=== PATIENT | male | born 1940 | race Asian ===

== ENCOUNTER → 2016-05-09 | Outpatient (CLI) | payer MEDICARE, OTHER ==
[2014-09-14 07:47] VITALS: BP 99/53
[~2016-05-09] MED LIST: ATOR10TA PO; CALC1TAB PO; CHOL10003 PO; CYAN10005 PO; FERR325T58 PO; IRON50VI2 IV; LEVO50TA5 PO; ONDA8TAB9 PO; OXYC-323 PO
--- NOTE | 2016-05-09 12:54 | RAD ---
Indication restage lung malignancy. PET/CT was performed from the skull through the proximal thigh. CT was performed primarily for localization and attenuation purposes as opposed to primary diagnostic purposes. The blood sugar during the examination was entered and 13. 11.8 mCi of FDG was administered. Note is made of a previous PET/CT examination 02/29/2016. On CT the visualized brain appears normal. No abnormality is seen in the neck. Known urinary nodule, medially, in the right upper lobe immediately adjacent to the mediastinum persists but appears slightly larger. No new pulmonary nodules are seen. Scattered calcified lymph nodes in the retroperitoneum are noted. Known cholelithiasis is reproduced. The spleen is slightly enlarged. Moderately extensive diverticulosis is noted associated with the sigmoid colon. On PET the FDG is physiologically distributed in the visualized brain. No abnormal FDG activity is seen in the neck. The referenced pulmonary nodule in the right upper lobe, close to the mediastinum, is moderately FDG avid. Maximum SUV is now 2.4 where as previously it was 1.9. This, in conjunction with the slight increase in size is most compatible with ongoing neoplastic disease. No additional finding is seen in the chest. In the abdomen FDG avid node, in the area of the dung hepatis, persists. It is more FDG avid than previously. Maximum SUV previously was approximately 5.4 and now the corresponding value is 6.2. Several additional retroperitoneal lymph nodes are noted which too are slightly more avid than on the previous exam. . These findings too are most compatible with ongoing metastatic disease. Multiple areas of increased activity are seen throughout the visualized bony structures which is probably secondary to bone marrow stimulation. In this regard the findings are similar to the previous study. Slightly increased FDG activity in the stomach seen previously is not seen on today's study IMPRESSION: Findings most suggestive of ongoing neoplastic disease. Known right upper lobe pulmonary nodule is slightly larger and more FDG avid than on the previous exam. Dung hepatis and retroperitoneal lymph nodes are also somewhat more FDG avid. Increased activity in multiple visualized bony structures is probably secondary to bone marrow stimulation. The appearance is similar to the previous exam
== END | disposition home or self-care (01) ==
LOC: PETSC 10:15
PROVIDERS: ATTEND Internal Medicine Hematology & Oncology
DX: C16.0 Malignant neoplasm of cardia (principal); R91.1 Solitary pulmonary nodule
CPT/HCPCS: 78815; A9552

== ENCOUNTER → 2016-07-18 | Outpatient (CLI) | payer MEDICARE, OTHER ==
[2014-09-14 07:47] VITALS: BP 99/53
--- NOTE | 2016-07-18 12:03 | RAD ---
PET/CT imaging from the skull through the midthigh History: Gastroesophageal cancer restaging. Comparison: PET/CT 05/09/2016. Technique: PET examination was performed from the skull base to the proximal thighs after intravenous administration of 12.2 mCi Fluorine [address] scan was performed for the purposes of localization and attenuation, not for primary diagnosis. Blood glucose level at time of injection was 112 mg/dl. Findings: No metabolically active lymphadenopathy is seen in the neck, chest or pelvis. There is a right upper lobe pulmonary nodule measuring 5 mm (series 3 image 120). There is in this region maximum SUV of 1.7, although this may be from adjacent rib; this size is generally considered below the level of detection by PET; on previous study, this nodule measured 2 mm, consequently there has been interval growth. The right upper lobe nodule adjacent to the minor fissure and the mediastinum does not appear appreciably changed in size measuring about 1.1 cm in maximum dimension and demonstrates maximum SUV of 2.0 (previously 1.1 cm and maximum SUV of 2.4). Some of the abdominal lymphadenopathy appears to have worsened in the interval. Most evident, left para-aortic infrarenal lymphadenopathy now demonstrates maximum SUV of 7.5 (previously maximum SUV of 2.9). Aortocaval lymph node demonstrates maximum SUV of 6.8 (previously maximum SUV of 7.5). There is also lymphadenopathy more anteriorly in the upper abdomen adjacent to the liver which demonstrate maximum SUV of 6.0 (previously maximum SUV of 6.2). There is interval development of small right pleural effusion and interval enlargement of left pleural effusion, still small. There is evidence of body wall edema and ascites. Cholelithiasis is seen. Diffuse FDG activity involving a majority of the osseous structures is again seen, may relate to bone marrow stimulation. Impression: 1. There is evidence of worsening of metastatic disease as component of abdominal lymphadenopathy demonstrates increased activity since previous study. 2. Interval enlargement of a right upper lobe pulmonary nodule which now measures 5 mm. This may be metastatic. 3. No significant interval change in appearance or metabolic activity of the larger right upper lobe pulmonary nodule adjacent to the minor fissure and the mediastinum. 4. Persistent diffuse FDG activity involving skeletal structures, may relate to bone marrow stimulation.
== END | disposition home or self-care (01) ==
LOC: PETSC 09:02
PROVIDERS: ATTEND Internal Medicine Hematology & Oncology
DX: C16.0 Malignant neoplasm of cardia (principal)
CPT/HCPCS: 78815; A9552

== ENCOUNTER 2016-08-19 10:31 | Inpatient (IN) | payer MEDICARE, OTHER ==
[~2016-08-19] VITALS: Ht 160 cm; Wt 54.5 kg
[2016-08-19 11:12] LABS: POTASSIUM ISTAT 3.9 mmol/L (3.5-5.0)
[2016-08-19 11:19] LABS: BASO # 0.1 x10^3/uL (0.0-0.2); BASO % 0 % (0-3); EOS % 0 % (0-3); HEMATOCRIT 39.7 % (39.0-53.0); HEMOGLOBIN 13.8 g/dL (13.0-17.5); LYMPH # 0.3 x10^3/uL (1.0-4.8); LYMPH % 1 % (24-48); MEAN CORPUSCULAR HEMOGLOBIN 32 pg (25-35); MEAN CORPUSCULAR HGB CONC 35 g/dL (31-37); MEAN CORPUSCULAR VOLUME 92 fL (79-100); MONO % 7 % (0-9); NEUT % 92 % (31-73); PLATELET COUNT 133 x10^3/uL (140-400); RED BLOOD COUNT 4.34 x10^6/uL (4.30-5.70); RED CELL DISTRIBUTION WIDTH 20.6 % (11.5-14.5); WHITE BLOOD COUNT 24.5 x10^3/uL (4.0-11.0)
[2016-08-19 11:25] LABS: BILIRUBIN,URINE LARGE (NEG); GLUCOSE,URINE NEGATIVE (NEG); NITRITE,URINE NEGATIVE (NEG); PH,URINE 5.5; PROTEIN,URINE NEGATIVE (NEG-TRACE); UROBILINOGEN,URINE 0.2 mg/dL (0.2 mg/dL)
[2016-08-19 11:29] LABS: CALCIUM 8.7 mg/dL (8.5-10.1); CREATININE 0.8 mg/dL (0.7-1.3); GFR 94.5; POTASSIUM 4.2 mmol/L (3.5-5.1)
[2016-08-19 11:32] LABS: INR 2.1 (0.8-1.1); PROTHROMBIN TIME PATIENT 22.6 SEC (11.7-14.0)
--- NOTE | 2016-08-19 11:37 | PHYS DOC ---
Past Medical History Past Medical History: Cancer, GERD Additional Past Surgical Histo: "stomach" for cancer Alcohol Use: None Drug Use: None Adult General Chief Complaint Chief Complaint: weakness/edema HPI HPI Patient is a 76 year old male who presents with weakness and ongoing edema in lower extremities and abdomen. pt has metastatic gastric cancer and is receiving chemotherapy. Pt presents hypoxic and does not wear O2 at home. Family reports the patient has had cough but not productive. Pt chronically sleeps up on pillows. Pt reportedly more jaundiced from baseline. pt had mets to liver in past but family reports it had "gone away". Pt denies chest pain, sob, or abdominal pain. No reports of problems with urination or bowel movement change. No headache and pt's mentation has been normal. Review of Systems Review of Systems Constitutional: Denies fever or chills, reports generalized weakness Eyes: Denies change in visual acuity, redness, or eye pain [] HENT: Denies nasal congestion or sore throat [] Respiratory: Denies shortness of breath [] Cardiovascular: denies chest pain GI: Denies abdominal pain, nausea, vomiting, bloody stools or diarrhea [] : Denies dysuria or hematuria [] Musculoskeletal: Denies back pain Integument: Denies rash or skin lesions [] Neurologic: Denies headache, focal weakness or sensory changes [] Current Medications Current Medications Current Medications Medications (Trade) Dose Ordered Sig/Robel Start Time Stop Time Status Last Admin Dose Admin Iohexol (Omnipaque 300 Mg/ml) 75 ml 1X ONCE 08/19/16 12:00 08/19/16 12:01 DC 08/19/16 12:03 75 ML Piperacillin Sod/ Tazobactam Sod (Zosyn Per Pharmacy) 1 each PRN DAILY PRN 08/19/16 11:45 Piperacillin Sod/ Tazobactam Sod 3.375 gm/Sodium Chloride 50 ml @ 100 mls/hr ONCE ONCE 08/19/16 11:45 08/19/16 12:14 DC 08/19/16 11:58 100 MLS/HR Sodium Chloride 500 ml @ 500 mls/hr 1X ONCE 08/19/16 11:45 08/19/16 12:44 DC 08/19/16 11:59 500 MLS/HR Vancomycin HCl (Vanco Per Pharmacy) 1 each PRN DAILY PRN 08/19/16 11:45 08/19/16 14:44 DC Vancomycin HCl 1.25 gm/Sodium Chloride 250 ml @ 166.667 mls/hr 1X ONCE 08/19/16 12:00 08/19/16 13:29 DC Allergies Allergies Allergies Coded Allergies Type Severity Reaction Last Updated Verified No Known Drug Allergies 11/09/13 No Physical Exam Physical Exam Constitutional: Well developed, frail, jaundiced HENT: Normocephalic, atraumatic Eyes: PERRLA, EOMI, scleral icteric Neck: Normal range of motion, no tenderness, supple, no stridor. [] Cardiovascular:Heart rate regular with rhythm, no murmur [] Lungs & Thorax: Bilateral breath sounds clear to auscultation , no wheeze or crackles, Abdomen: soft, mildly distended, no significant ttp, no guarding or peritoneal signs Skin: Warm, dry, jaundiced throughout Back: No tenderness, no CVA tenderness. [] Extremities: No tenderness, no cyanosis, no clubbing, ROM intact, 2+ bilateral lower extremity edema Neurologic: Alert and oriented, normal motor function, normal sensory function, no focal deficits noted. [] Current Patient Data Vital Signs Vital Signs Date Time Temp Pulse Resp B/P (MAP) Pulse Ox O2 Delivery O2 Flow Rate FiO2 08/19/16 11:41 68 20 127/64 (85) 93 08/19/16 10:55 97.6 Nasal Cannula 4.0 97.6 Lab Values Laboratory Tests Test 08/19/16 11:00 08/19/16 11:07 08/19/16 11:15 White Blood Count 24.5 x10^3/uL (4.0-11.0) H Red Blood Count 4.34 x10^6/uL (4.30-5.70) Hemoglobin 13.8 g/dL (13.0-17.5) Hematocrit 39.7 % (39.0-53.0) Mean Corpuscular Volume 92 fL (79-100) Mean Corpuscular Hemoglobin 32 pg (25-35) Mean Corpuscular Hemoglobin Concent 35 g/dL (31-37) Red Cell Distribution Width 20.6 % (11.5-14.5) H Platelet Count 133 x10^3/uL (140-400) L Neutrophils (%) (Auto) 92 % (31-73) H Lymphocytes (%) (Auto) 1 % (24-48) L Monocytes (%) (Auto) 7 % (0-9) Eosinophils (%) (Auto) 0 % (0-3) Basophils (%) (Auto) 0 % (0-3) Neutrophils # (Auto) 22.5 x10^3uL (1.8-7.7) H Lymphocytes # (Auto) 0.3 x10^3/uL (1.0-4.8) L Monocytes # (Auto) 1.6 x10^3/uL (0.0-1.1) H Eosinophils # (Auto) 0.0 x10^3/uL (0.0-0.7) Basophils # (Auto) 0.1 x10^3/uL (0.0-0.2) Segmented Neutrophils % 86 % (35-66) H Band Neutrophils % 9 % (0-9) Monocytes % 4 % (0-10) Eosinophils % 1 % (0-5) Platelet Estimate Adequate (ADEQUATE) Polychromasia Slight Anisocytosis Mod Target Cells Present Prothrombin Time 22.6 SEC (11.7-14.0) H Prothrombin Time INR 2.1 (0.8-1.1) H Sodium Level 124 mmol/L (136-145) L Potassium Level 4.2 mmol/L (3.5-5.1) Chloride Level 86 mmol/L (98-107) L Carbon Dioxide Level 30 mmol/L (21-32) Anion Gap 8 (6-14) 14 mmol/L (6-14) Blood Urea Nitrogen 24 mg/dL (8-26) Creatinine 0.8 mg/dL (0.7-1.3) Estimated GFR (Cockcroft-Gault) 94.5 Glucose Level 89 mg/dL (70-99) 94 mg/dL (70-99) Lactic Acid Level 2.0 mmol/L (0.4-2.0) Calcium Level 8.7 mg/dL (8.5-10.1) Magnesium Level 2.3 mg/dL (1.8-2.4) Total Bilirubin 23.0 mg/dL (0.2-1.0) H Direct Bilirubin 17.7 mg/dL (0.0-0.2) H Aspartate Amino Transferase (AST) 141 U/L (15-37) H Alanine Aminotransferase (ALT) 73 U/L (16-63) H Alkaline Phosphatase 932 U/L (46-116) H Troponin I Quantitative < 0.017 ng/mL (0.000-0.055) QB-Mhp-K-Type Natriuretic Peptide 695 pg/mL (0-124) H Total Protein 5.7 g/dL (6.4-8.2) L Albumin 1.9 g/dL (3.4-5.0) L Lipase 213 U/L (73-393) POC Hemoglobin 16.3 g/dL (14-18) POC Hematocrit 48 % (37-52) POC Sodium 124 mmol/L (135-145) L POC Potassium 3.9 mmol/L (3.5-5.0) POC Chloride 84 mmol/L (98-110) L POC Total CO2 30 mmol/L (23-32) POC Blood Urea Nitrogen 26 mg/dL (8-26) POC Creatinine 0.9 mg/dL (0.5-1.4) POC Ionized Calcium (Deuce) 1.06 mmol/L (1.13-1.32) L Urine Collection Type Unknown Urine Color [place] Urine Clarity Clear Urine pH 5.5 Urine Specific [place] 1.025 Urine Protein Negative mg/dL (NEG-TRACE) Urine Glucose (UA) Negative mg/dL (NEG) Urine Ketones (Stick) Trace mg/dL (NEG) Urine Blood Negative (NEG) Urine Nitrite Negative (NEG) Urine Bilirubin Large (NEG) Urine Urobilinogen Dipstick 0.2 mg/dL (0.2 mg/dL) Urine Leukocyte Esterase Small (NEG) Urine RBC 0 /HPF (0-2) Urine WBC Occ /HPF (0-4) Urine Squamous Epithelial Cells Occ /LPF Urine Bacteria Few /HPF (0-FEW) Urine Hyaline Casts Occasional /HPF Urine Granular Casts Occasional /HPF Urine Mucus Mod /LPF Laboratory Tests 08/19/16 11:00 Laboratory Tests 08/19/16 11:00 08/19/16 11:07 EKG EKG 76 bpm, sinus, normal axis, QTC 459, no ST elevation or depression, T waves upright, interpreted by me[] Radiology/Procedures Radiology/Procedures [] Course & Med Decision Making Course & Med Decision Making Pertinent Labs and Imaging studies reviewed. (See chart for details) Pt given IV fluids, labs/cxr obtained. Concern for PE with hypoxia and cancer. Pt given small fluid bolus as could be fluid overload. Lactate WNL. Pt given zosyn and vanc for appearance of pna on CXr. CTA chest and CT abd/pelvis ordered, pt accepted to Dr. Guzman, consults for ID and Dr. Danielle christiansen. Pt maintained. Total critical care time: 30 min Dragon Disclaimer Dragon Disclaimer This electronic medical record was generated, in whole or in part, using a voice recognition dictation system. Departure Departure Impression: Primary Impression: Sepsis Disposition: 01 HOME, SELF-CARE Condition: GUARDED Referrals: LIT GEE APRN (PCP) ABDIAZIZ PASTOR MD Aug 19, 2016 11:37
--- NOTE | 2016-08-19 11:43 | RAD ---
Indication difficulty breathing. A single view of the chest was obtained. No prior plain film imaging of the chest is available Heart size is normal. There are bilateral pleural effusions. Volume loss at the lung bases may reflect atelectasis or pneumonia. There are probable background changes of congestive heart failure. A left Port-A-Cath is noted. IMPRESSION: Moderate bilateral pleural effusions. Volume loss at the lung bases may reflect atelectasis or pneumonia. Probable moderate congestive heart failure
[2016-08-19] MEDS ORDERED: IV NORMAL SALINE 500ML BAG 500 ML IV ONE (11:45)
[2016-08-19] MEDS ORDERED: PIP/TAZO PER PHARMACY MC PRN (11:45)
[2016-08-19] MEDS ORDERED: VANCOMYCIN PER PHARMACY MC PRN (11:45)
[2016-08-19] MEDS ORDERED: PIPERACILLIN/TAZOBACTAM 3.375 GM in IV NORMAL SALINE 50ML 50 ML IV ONE (11:45)
[2016-08-19 11:49] LABS: ALBUMIN 1.9 g/dL (3.4-5.0); DIRECT BILIRUBIN 17.7 mg/dL (0.0-0.2); MAGNESIUM 2.3 mg/dL (1.8-2.4); TOTAL PROTEIN 5.7 g/dL (6.4-8.2)
[2016-08-19 11:54] LABS: SQUAMOUS EPITHELIAL CELL,UR OCC /LPF
[2016-08-19 11:55] LABS: BACTERIA,URINE FEW /HPF (0-FEW); RBC,URINE 0 /HPF (0-2); WBC,URINE OCC /HPF (0-4)
[2016-08-19] MEDS ORDERED: VANCOMYCIN 1.25 GM in IV NORMAL SALINE 250ML 250 ML IV ONE (12:00)
[2016-08-19] MEDS ORDERED: IOHEXOL 300 MG/ML 75 ML VIAL IV ONE (12:00)
[2016-08-19 12:02] LABS: % EOS 1 % (0-5); ANISOCYTOSIS MOD; PLT ESTIMATE ADEQUATE (ADEQUATE); POLYCHROMASIA SLIGHT; TARGET CELLS PRESENT
[2016-08-19] MEDS ORDERED: fentaNYL PF VIAL 100 MCG/2 ML VIAL IV PRN ×2 (12:15→13:30)
[2016-08-19] MEDS ORDERED: ONDANSETRON PF 4 MG/2 ML VIAL. IV PRN ×2 (12:15→13:23)
[2016-08-19] MEDS ORDERED: CONTRAST GIVEN MC PRN (12:15)
[2016-08-19] MEDS ORDERED: IV NORMAL SALINE 1000ML BAG 1,000 ML IV ONE (12:45)
--- NOTE | 2016-08-19 12:51 | RAD ---
Indication difficulty breathing. Gastrointestinal malignancy. Axial images through the abdomen and pelvis were obtained. The imaging of the chest was tailored for the detection of pulmonary embolus. MIP images were generated and reviewed. Note is made of a previous examination of the chest 06/19/2015. Note is made of a prior study of the abdomen and pelvis 09/14/2014. Approximately 75 cc of Omnipaque 300 was administered intravenously for this exam. No oral contrast was administered. CT chest: Findings There is is generalized soft tissue swelling suggesting a systemic process such as anasarca. There are large bilateral pleural effusions. The esophagus is significantly dilated and fluid-filled throughout its course. (Suspect gastric pull-up. Clinical correlation advised). The study is negative for pulmonary embolus. There is volume loss at the lung bases compatible with atelectasis associated with the pleural fluid. Additional volume loss is seen in the left upper lobe. This may reflect atelectasis or pneumonia a dominant soft tissue mass in aerated lung is not seen. CT abdomen and pelvis: Findings Similar to the chest there is generalized soft tissue swelling again suggesting a systemic process such as anasarca. There is moderately extensive abdominal ascites. There is cholelithiasis. The gallbladder is moderately distended. There is significant biliary ductal dilatation. Intra and extrahepatic radicles are dilated. The etiology is not clear on this exam there is significant abdominal ascites representing a new finding compared to the previous exam. There is periaortic adenopathy. Evaluation of same is somewhat limited secondary to the ascites and lack of GI contrast however this adenopathy appears to have progressed somewhat relative to the previous exam diverticular disease is seen associated with the large bowel. IMPRESSION: Negative study for large central pulmonary emboli. Large bilateral pleural effusions. Volume loss at the lung bases and in the left upper lobe may reflect atelectasis or pneumonia. Dilated fluid-filled esophagus versus gastric pull-up. Clinical correlation advised. Extensive abdominal ascites. Generalized anasarca. Intra and extra hepatic biliary ductal dilatation the etiology of which is not clear on this exam. Periaortic and abdominal adenopathy. The appearance is somewhat worse relative to the previous exam PQRS Compliance Statement: One or more of the following individualized dose reduction techniques were utilized for this examination: 1. Automated exposure control 2. Adjustment of the mA and/or kV according to patient size 3. Use of iterative reconstruction technique
[2016-08-19 13:00] VITALS: BP 135/67
--- NOTE | 2016-08-19 13:15 | ACF ---
Admit Criteria Forms Admit Criteria Forms Admit Criteria Forms PNEUMONIA, COMMUNITY ACQUIRED Clinical Indications for Admission to Inpatient Care (Place 'X' for any and all applicable criteria): Admission to inpatient status for two midnights or more is indicated for ANY ONE of the following (1)(2)(3): [X]I. Hypoxia [ ]II. Hemodynamic instability [ ]III. Altered mental status that is severe or persistent [ ]IV. Dehydration that is severe or persistent. [ ]V. Bacteremia [ ]. Moderate-risk or high-risk category patients (Pneumonia Severity Index ( PSI) class IV or V, or CURB-65 score of 3 or greater). [ ]VII. Intermediate-risk category patients (e.g., PSI class III or CURB-65 score 2) who do not improve with outpatient and observation care treatment [ ]VIII. Outpatient treatment failure as indicated by 1 or more of the following(9): [ ]a) Failure to respond to antibiotic (eg, resistant organism) [ ]b) Clinically significant adverse effects from medication (eg, vomiting) [ ]c) Complications of pneumonia (eg, empyema, bacteremia) [ ]d) Significant worsening of comorbid cond necessitating inpatient care (eg, chronic heart failure) [ ]IX. Appropriate diagnostic testing and treatment unavailable in outpatient or recovery facility (eg, testing or infection control measures unavailable) [ ]X. Respiratory finding (eg. tachypnea) that do not respond to outpatient observation care treatment [ ]XI. Complicated pleural effusions (eg, emphysema, exudative, loculated) [ ]XII. Immunocompromised patients (e.g., AIDS, chronic steroid use) at moderate or high risk based on clinical evaluation. Extended stay beyond goal length of stay may be needed for (20) [ ]a) Unclear diagnosis [ ]b) Pleural disease [ ]c) Severe pneumonia or treatment failure [ ]d) Respiratory failure [ ]e) New onset hyponatremia (serum Na concentration less than 135 mEq/L(mmol/ L) [ ]f) Clinically significant comorbid illness (eg, heart failure, atrial fibrillation with rapid heart rate, alcohol withdrawal, renal insufficiency)(34)(35) [ ]g) Comorbid acute exacerbation of COPD(36) [ ]h) Concomitant diagnosis of malignancy [ ]i) Concomitant altered mental status [ ]j) Culture-identified Gram-negative or antibiotic-resistant organism (eg, Pseudomonas, methicillin-resistant Staphylococcus aureus MRSA)(30) [ ]k) Healthcare-associated pneumonia (36) The original [facility] [employer] content created by [facility] has been revised. The portions of the content which have been revised are identified through the use of italic text, and [facility] has neither reviewed nor approved the modified material. All other unmodified content is copyright [facility]. Please see references footnoted in the original [facility] [employer] edition 2014 SERVANDO JESUS Aug 19, 2016 13:15
--- NOTE | 2016-08-19 13:36 | EKG ---
[facility] [address] [place] [address] Test Date: 2016-08-19 Test Time: 10:58:28 Pat Name: BERNABE JAIME Department: Room: Gender: M Automatic Hemmer: : 1940 Requested By: ABDIAZIZ PASTOR Order Number: [id number] Reading MD: Measurements Intervals [place] Rate: 76 P: 39 VA: 158 QRS: -34 QRSD: 78 T: -15 QT: 404 QTc: 459 Interpretive Statements SINUS RHYTHM ABNORMAL LEFT AXIS DEVIATION LOW LIMB LEAD VOLTAGE QRS(T) CONTOUR ABNORMALITY CONSISTENT WITH ANTEROSEPTAL INFARCT AGE UNDETERMINED CONSISTENT WITH INFERIOR INFARCT AGE UNDETERMINED ABNORMAL ECG RI6.01 No previous ECG available for comparison
--- NOTE | 2016-08-19 14:26 | PDOC1 ---
History and Physical Date of Admission Date of Admission DATE: 08/19/16 TIME: 14:10 Identification/Chief Complaint Chief Complaint weakness, generalized Problems: Source Source: Caregiver, Chart review, Patient History of Present Illness History of Present Illness 76 y.o Malaysian male who doesnt speak Welsh but dtr at bedside to help out, hx GE Jcn CA with mets dx yrs ago follows with [facility] for palliative chemo and a few sessions with [facility] (Dr. Gomez) in the past. Gets chemo q 2weeks, last chemo was last week but dtr noticed swelling, essentially anasarca - LE edema, ascites, arm swelling, jaundice which has happened before, in september and resolved after discontinuation of some chemo agent. Eating ok, no fevers, gets boost supplement at home, NO pain. Weight gain bec of water weight. Images reviewed: TB high, Direct bili high, pt though thin has ascites appreciable on exam, Bialteral LE edema and arm edema , icteric sclerae: CT abd/pelvis I have personally reviewed: IMPRESSION: Negative study for large central pulmonary emboli. Large bilateral pleural effusions. Volume loss at the lung bases and in the left upper lobe may reflect atelectasis or pneumonia. Dilated fluid-filled esophagus versus gastric pull-up. Clinical correlation advised. Extensive abdominal ascites. Generalized anasarca. Intra and extra hepatic biliary ductal dilatation the etiology of which is not clear on this exam. Periaortic and abdominal adenopathy. The appearance is somewhat worse relative to the previous exam Past Medical History Heme/Onc: Anemia NOS, Cancer Past Surgical History Past Surgical History: Other (Gastric vs esophageal =tumor resection - done at ) Family History Family History: Hypertension Social History Smoke: No ALCOHOL: none Drugs: None Current Problem List Problem List Problems Medical Problems: (1) Sepsis Status: Acute Problems: Current Medications Current Medications Current Medications Sodium Chloride 500 ml @ 500 mls/hr 1X ONCE IV Last administered on 08/19/16t 11:59; Start 08/19/16 at 11:45; Stop 08/19/16 at 12:44; Status DC Piperacillin Sod/ Tazobactam Sod (Zosyn Per Pharmacy) 1 each PRN DAILY PRN MC SEE COMMENTS; Start 08/19/16 at 11:45 Vancomycin HCl (Vanco Per Pharmacy) 1 each PRN DAILY PRN MC SEE COMMENTS; Start 08/19/16 at 11:45 Vancomycin HCl 1.25 gm/Sodium Chloride 250 ml @ 166.667 mls/hr 1X ONCE IV ; Start 08/19/16 at 12:00; Stop 08/19/16 at 13:29; Status DC Piperacillin Sod/ Tazobactam Sod 3.375 gm/Sodium Chloride 50 ml @ 100 mls/hr ONCE ONCE IV Last administered on 08/19/16t 11:58; Start 08/19/16 at 11:45; Stop 08/19/16 at 12:14; Status DC Iohexol (Omnipaque 300 Mg/ml) 75 ml 1X ONCE IV Last administered on 08/19/16t 12:03; Start 08/19/16 at 12:00; Stop 08/19/16 at 12:01; Status DC Info (Do NOT chart on this entry -- for MONITORING) 1 each PRN DAILY PRN MC SEE COMMENTS; Start 08/19/16 at 12:15; Stop 08/21/16 at 12:14 Ondansetron HCl (Zofran) 4 mg PRN Q8HRS PRN IV NAUSEA/VOMITING; Start 08/19/16 at 12:15; Stop 08/19/16 at 13:26; Status DC Fentanyl Citrate (Fentanyl 2ml Vial) 50 mcg PRN Q1HR PRN IV PAIN; Start at 12:15; Stop 08/20/16 at 12:14 Sodium Chloride 1,000 ml @ 1,000 mls/hr 1X ONCE IV ; Start 08/19/16 at 12:45; Stop 08/19/16 at 13:44; Status DC Ondansetron HCl (Zofran) 4 mg PRN Q6HRS PRN IV NAUSEA/VOMITING 1ST CHOICE; Start 08/19/16 at 13:23; Stop 08/20/16 at 13:22 Fentanyl Citrate (Fentanyl 2ml Vial) 50 mcg PRN Q2HR PRN IV PAIN SEVERE; Start 08/19/16 at 13:30 Atorvastatin Calcium (Lipitor) 10 mg DAILY PO ; Start 08/20/16 at 09:00; Status UNV Vitamin D (Vitamin D3) 1,000 unit DAILY PO ; Start 08/19/16 at 14:00 Levothyroxine Sodium (Synthroid) 50 mcg DAILY07 PO ; Start 7/3/17 at 14:00 Active Scripts Active Reported Vitamin D3 (Cholecalciferol (Vitamin D3)) 1,000 Unit Tablet 1,000 Unit PO DAILY Levothyroxine Sodium 50 Mcg Tablet 50 Mcg PO DAILY Lipitor (Atorvastatin Calcium) 10 Mg Tablet 10 Mg PO DAILY Allergies Allergies: Coded Allergies: No Known Drug Allergies (Unverified , 11/09/13) ROS Review of System limited - non cymraes speaking, but as per dtr, denies - only concern is weakness and swelling Physical Exam General: Alert, Oriented X3, Cooperative, No acute distress HEENT: Atraumatic, EOMI, Other (icteric sclerae) Lungs: Normal air movement, Other (dec BS) Heart: S1S2 Cardiovascular: S1, S2 Abdomen: Soft, Other (ascites, jaundiced abdomen/yellowish hue) Extremities: Other (plus 2 -3 pitting edema) Skin: Other (jaundice) Neuro: Normal gait, Normal speech, Strength at 5/5 X4 ext, Normal tone, Sensation intact, Cranial nerves 3-12 NL, Reflexes 2+ Psych/Mental Status: Mental status NL Vitals Vitals Vital Signs Date Time Temp Pulse Resp B/P (MAP) Pulse Ox O2 Delivery O2 Flow Rate FiO2 08/19/16 11:41 68 20 127/64 (85) 93 08/19/16 10:55 97.6 Nasal Cannula 4.0 97.6 Labs Labs Laboratory Tests Test 08/19/16 11:00 08/19/16 11:07 08/19/16 11:15 White Blood Count 24.5 x10^3/uL (4.0-11.0) Red Blood Count 4.34 x10^6/uL (4.30-5.70) Hemoglobin 13.8 g/dL (13.0-17.5) Hematocrit 39.7 % (39.0-53.0) Mean Corpuscular Volume 92 fL (79-100) Mean Corpuscular Hemoglobin 32 pg (25-35) Mean Corpuscular Hemoglobin Concent 35 g/dL (31-37) Red Cell Distribution Width 20.6 % (11.5-14.5) Platelet Count 133 x10^3/uL (140-400) Neutrophils (%) (Auto) 92 % (31-73) Lymphocytes (%) (Auto) 1 % (24-48) Monocytes (%) (Auto) 7 % (0-9) Eosinophils (%) (Auto) 0 % (0-3) Basophils (%) (Auto) 0 % (0-3) Neutrophils # (Auto) 22.5 x10^3uL (1.8-7.7) Lymphocytes # (Auto) 0.3 x10^3/uL (1.0-4.8) Monocytes # (Auto) 1.6 x10^3/uL (0.0-1.1) Eosinophils # (Auto) 0.0 x10^3/uL (0.0-0.7) Basophils # (Auto) 0.1 x10^3/uL (0.0-0.2) Segmented Neutrophils % 86 % (35-66) Band Neutrophils % 9 % (0-9) Monocytes % 4 % (0-10) Eosinophils % 1 % (0-5) Platelet Estimate Adequate (ADEQUATE) Polychromasia Slight Anisocytosis Mod Target Cells Present Prothrombin Time 22.6 SEC (11.7-14.0) Prothromb Time International Ratio 2.1 (0.8-1.1) Sodium Level 124 mmol/L (136-145) Potassium Level 4.2 mmol/L (3.5-5.1) Chloride Level 86 mmol/L (98-107) Carbon Dioxide Level 30 mmol/L (21-32) Anion Gap 8 (6-14) 14 mmol/L (6-14) Blood Urea Nitrogen 24 mg/dL (8-26) Creatinine 0.8 mg/dL (0.7-1.3) Estimated GFR (Cockcroft-Gault) 94.5 Glucose Level 89 mg/dL (70-99) 94 mg/dL (70-99) Lactic Acid Level 2.0 mmol/L (0.4-2.0) Calcium Level 8.7 mg/dL (8.5-10.1) Magnesium Level 2.3 mg/dL (1.8-2.4) Total Bilirubin 23.0 mg/dL (0.2-1.0) Direct Bilirubin 17.7 mg/dL (0.0-0.2) Aspartate Amino Transf (AST/SGOT) 141 U/L (15-37) Alanine Aminotransferase (ALT/SGPT) 73 U/L (16-63) Alkaline Phosphatase 932 U/L (46-116) Troponin I Quantitative < 0.017 ng/mL (0.000-0.055) KE-Enu-E-Type Natriuretic Peptide 695 pg/mL (0-124) Total Protein 5.7 g/dL (6.4-8.2) Albumin 1.9 g/dL (3.4-5.0) Lipase 213 U/L (73-393) Bedside Hemoglobin 16.3 g/dL (14-18) Bedside Hematocrit 48 % (37-52) Bedside Sodium 124 mmol/L (135-145) Bedside Potassium 3.9 mmol/L (3.5-5.0) Bedside Chloride 84 mmol/L (98-110) Bedside Total CO2 30 mmol/L (23-32) Bedside Blood Urea Nitrogen 26 mg/dL (8-26) Bedside Creatinine 0.9 mg/dL (0.5-1.4) Bedside Ionized Calcium (Deuce) 1.06 mmol/L (1.13-1.32) Urine Collection Type Unknown Urine Color [place] Urine Clarity Clear Urine pH 5.5 Urine Specific [place] 1.025 Urine Protein Negative mg/dL (NEG-TRACE) Urine Glucose (UA) Negative mg/dL (NEG) Urine Ketones (Stick) Trace mg/dL (NEG) Urine Blood Negative (NEG) Urine Nitrite Negative (NEG) Urine Bilirubin Large (NEG) Urine Urobilinogen Dipstick 0.2 mg/dL (0.2 mg/dL) Urine Leukocyte Esterase Small (NEG) Urine RBC 0 /HPF (0-2) Urine WBC Occ /HPF (0-4) Urine Squamous Epithelial Cells Occ /LPF Urine Bacteria Few /HPF (0-FEW) Urine Hyaline Casts Occasional /HPF Urine Granular Casts Occasional /HPF Urine Mucus Mod /LPF Laboratory Tests Test 08/19/16 11:00 08/19/16 11:07 08/19/16 11:15 White Blood Count 24.5 x10^3/uL (4.0-11.0) Red Blood Count 4.34 x10^6/uL (4.30-5.70) Hemoglobin 13.8 g/dL (13.0-17.5) Hematocrit 39.7 % (39.0-53.0) Mean Corpuscular Volume 92 fL (79-100) Mean Corpuscular Hemoglobin 32 pg (25-35) Mean Corpuscular Hemoglobin Concent 35 g/dL (31-37) Red Cell Distribution Width 20.6 % (11.5-14.5) Platelet Count 133 x10^3/uL (140-400) Neutrophils (%) (Auto) 92 % (31-73) Lymphocytes (%) (Auto) 1 % (24-48) Monocytes (%) (Auto) 7 % (0-9) Eosinophils (%) (Auto) 0 % (0-3) Basophils (%) (Auto) 0 % (0-3) Neutrophils # (Auto) 22.5 x10^3uL (1.8-7.7) Lymphocytes # (Auto) 0.3 x10^3/uL (1.0-4.8) Monocytes # (Auto) 1.6 x10^3/uL (0.0-1.1) Eosinophils # (Auto) 0.0 x10^3/uL (0.0-0.7) Basophils # (Auto) 0.1 x10^3/uL (0.0-0.2) Segmented Neutrophils % 86 % (35-66) Band Neutrophils % 9 % (0-9) Monocytes % 4 % (0-10) Eosinophils % 1 % (0-5) Platelet Estimate Adequate (ADEQUATE) Polychromasia Slight Anisocytosis Mod Target Cells Present Prothrombin Time 22.6 SEC (11.7-14.0) Prothromb Time International Ratio 2.1 (0.8-1.1) Sodium Level 124 mmol/L (136-145) Potassium Level 4.2 mmol/L (3.5-5.1) Chloride Level 86 mmol/L (98-107) Carbon Dioxide Level 30 mmol/L (21-32) Anion Gap 8 (6-14) 14 mmol/L (6-14) Blood Urea Nitrogen 24 mg/dL (8-26) Creatinine 0.8 mg/dL (0.7-1.3) Estimated GFR (Cockcroft-Gault) 94.5 Glucose Level 89 mg/dL (70-99) 94 mg/dL (70-99) Lactic Acid Level 2.0 mmol/L (0.4-2.0) Calcium Level 8.7 mg/dL (8.5-10.1) Magnesium Level 2.3 mg/dL (1.8-2.4) Total Bilirubin 23.0 mg/dL (0.2-1.0) Direct Bilirubin 17.7 mg/dL (0.0-0.2) Aspartate Amino Transf (AST/SGOT) 141 U/L (15-37) Alanine Aminotransferase (ALT/SGPT) 73 U/L (16-63) Alkaline Phosphatase 932 U/L (46-116) Troponin I Quantitative < 0.017 ng/mL (0.000-0.055) WQ-Bfw-D-Type Natriuretic Peptide 695 pg/mL (0-124) Total Protein 5.7 g/dL (6.4-8.2) Albumin 1.9 g/dL (3.4-5.0) Lipase 213 U/L (73-393) Bedside Hemoglobin 16.3 g/dL (14-18) Bedside Hematocrit 48 % (37-52) Bedside Sodium 124 mmol/L (135-145) Bedside Potassium 3.9 mmol/L (3.5-5.0) Bedside Chloride 84 mmol/L (98-110) Bedside Total CO2 30 mmol/L (23-32) Bedside Blood Urea Nitrogen 26 mg/dL (8-26) Bedside Creatinine 0.9 mg/dL (0.5-1.4) Bedside Ionized Calcium (Deuce) 1.06 mmol/L (1.13-1.32) Urine Collection Type Unknown Urine Color [place] Urine Clarity Clear Urine pH 5.5 Urine Specific [place] 1.025 Urine Protein Negative mg/dL (NEG-TRACE) Urine Glucose (UA) Negative mg/dL (NEG) Urine Ketones (Stick) Trace mg/dL (NEG) Urine Blood Negative (NEG) Urine Nitrite Negative (NEG) Urine Bilirubin Large (NEG) Urine Urobilinogen Dipstick 0.2 mg/dL (0.2 mg/dL) Urine Leukocyte Esterase Small (NEG) Urine RBC 0 /HPF (0-2) Urine WBC Occ /HPF (0-4) Urine Squamous Epithelial Cells Occ /LPF Urine Bacteria Few /HPF (0-FEW) Urine Hyaline Casts Occasional /HPF Urine Granular Casts Occasional /HPF Urine Mucus Mod /LPF VTE Prophylaxis Ordered VTE Prophylaxis Devices: Yes VTE Pharmacological Prophylaxi: Yes Assessment/Plan Assessment/Plan 1. ANasarca 2. JAundice, icteric sclerae 3. ELevated Total and DIrect Bilirubin 4. Hyponatremia 5. Severe PCM with albumin 1.8 6. Extensive abdominal ascites 7. Bilateral large pleural effusions 8. SIRS POA, unsure of sepsis yet 9. GE jcn CA with mets, on chemo and s.p palliative radiation 10. AOCD 11. LAnguage barrier 12. Full code PLAN: Admit Dtr unsure of name of chemo agent - hence I cannot say if jaundice, anasarca are all from the chemo agent Involve pulmo, might need Chest tube given large pleural effusions, wOF respi compromise (hx of needing Chest tube or fluid drainage in [facility]) LAsix 40 IV x 1 now - lasix gtt is a thought pending how his course unfolds - recheck BMP keyona Involve heme onc and GI - Direct Bili in 17, icterus, jaundice, CT fails to show any dilatation Ok for GI soft diet - may even tolerate reg diet (I was unsure re GI tests to be done pending GI consult) Nutrition consult for PCM Montior anemia and hyponatremia - the latter can get worse with diuresis DVT prophy MAy check US dopplers, r/o DVT given CA hx though these are likely all fluid Might need abd paracentesis if no improvement in anasarca and pending GI eval Started on [facility] - unsure if PNA could be seen - ID consulted WBC 20s - recheck keyona, road spectrum PT/OT SO far full code.. LISSETTE KHAN MD Aug 19, 2016 14:26
[2016-08-19] MEDS ORDERED: FUROSEMIDE 40 MG/4 ML VIAL. IVP ONE (14:30)
--- NOTE | 2016-08-19 14:44 | PDOC2 ---
IM Consult Reason for consult Possible sepsis Referring physician Dr Maxwell Date of Admission DATE: 08/19/16 TIME: 14:34 Chief Complaint Chief Complaint This year old male has been admitted with a chief complaint of .swelling all over, some cough, some nausea, no vomiting, no diarrhea, no fever Had new chemo, 1 st dose of Cyramza last wk. Has metastatic gastric ca on chemo since last september Problems: Past Medical History Heme/Onc: Anemia NOS, Cancer Hepatobiliary: Cirrhosis Past Surgical History Past Surgical History: Other (Gastric vs esophageal =tumor resection - done at ) Past Family History Family History: Hypertension Review of Symptoms Review of Symptoms General ROS: positive for - Psychological ROS: negative Ophthalmic ROS: negative ENT ROS: negative Allergy and Immunology ROS: negative Hematology and Lymphatic: negative Endocrine ROS: negative Respiratory ROS: no cold, cough, dyspnea. Cardiovascular ROS: no chest pain or dyspnea on exertion Gastrointestinal ROS: no abdominal pain, change in bowel habits, or black or bloody stools Genito-Urinary ROS: no dysuria, trouble voiding, or hematuria Musculoskeletal ROS: no pain Neurological ROS: negative Dermatological ROS: no rash Medications Current Medications Atorvastatin Calcium (Lipitor) 10 mg DAILY PO ; Start 08/20/16 at 09:00; Status UNV Enoxaparin Sodium (Lovenox 40mg Syringe) 40 mg Q24H SQ ; Start 08/19/16 at 15:00 Fentanyl Citrate (Fentanyl 2ml Vial) 50 mcg PRN Q1HR PRN IV PAIN; Start at 12:15; Stop 08/20/16 at 12:14 Fentanyl Citrate (Fentanyl 2ml Vial) 50 mcg PRN Q2HR PRN IV PAIN SEVERE; Start 08/19/16 at 13:30 Furosemide (Lasix) 60 mg 1X ONCE IVP ; Start 08/19/16 at 14:30; Stop 08/19/16 at 14:31; Status DC Info (Do NOT chart on this entry -- for MONITORING) 1 each PRN DAILY PRN MC SEE COMMENTS; Start 08/19/16 at 12:15; Stop 08/21/16 at 12:14 Iohexol (Omnipaque 300 Mg/ml) 75 ml 1X ONCE IV Last administered on 08/19/16t 12:03; Start 08/19/16 at 12:00; Stop 08/19/16 at 12:01; Status DC Levothyroxine Sodium (Synthroid) 50 mcg DAILY07 PO ; Start 08/19/16 at 14:00 Ondansetron HCl (Zofran) 4 mg PRN Q6HRS PRN IV NAUSEA/VOMITING 1ST CHOICE; Start 08/19/16 at 13:23; Stop 08/20/16 at 13:22 Ondansetron HCl (Zofran) 4 mg PRN Q8HRS PRN IV NAUSEA/VOMITING; Start 08/19/16 at 12:15; Stop 08/19/16 at 13:26; Status DC Piperacillin Sod/ Tazobactam Sod (Zosyn Per Pharmacy) 1 each PRN DAILY PRN MC SEE COMMENTS; Start 08/19/16 at 11:45 Piperacillin Sod/ Tazobactam Sod 3.375 gm/Sodium Chloride 50 ml @ 100 mls/hr ONCE ONCE IV Last administered on 08/19/16t 11:58; Start 08/19/16 at 11:45; Stop 08/19/16 at 12:14; Status DC Sodium Chloride 500 ml @ 500 mls/hr 1X ONCE IV Last administered on 08/19/16t 11:59; Start 08/19/16 at 11:45; Stop 08/19/16 at 12:44; Status DC Sodium Chloride 1,000 ml @ 1,000 mls/hr 1X ONCE IV ; Start 08/19/16 at 12:45; Stop 08/19/16 at 13:44; Status DC Vancomycin HCl (Vanco Per Pharmacy) 1 each PRN DAILY PRN MC SEE COMMENTS; Start 08/19/16 at 11:45 Vancomycin HCl 1.25 gm/Sodium Chloride 250 ml @ 166.667 mls/hr 1X ONCE IV ; Start 08/19/16 at 12:00; Stop 08/19/16 at 13:29; Status DC Vitamin D (Vitamin D3) 1,000 unit DAILY PO ; Start 08/19/16 at 14:00 Allergy Allergies Coded Allergies Type Severity Reaction Last Updated Verified No Known Drug Allergies 11/09/13 No Physical Exam Physical Exam General appearance - thin , chachectic, and in no distress and oriented to person, place, and time Mental Status - alert, oriented to person, place, and time, affect appropriate to mood Head - normal Chest - clear to auscultation, no wheezes, rales or rhonchi, symmetric air entry Heart - S1 and S2 normal Abdomen - soft, nontender, nondistended, no masses or organomegaly Neurological - alert and oriented Musculoskeletal - no muscular tenderness noted Extremities - ++ pedal edema Skin - warm and dry port in place Labs Laboratory Tests Test 08/19/16 11:00 08/19/16 11:07 08/19/16 11:15 White Blood Count 24.5 x10^3/uL (4.0-11.0) Red Blood Count 4.34 x10^6/uL (4.30-5.70) Hemoglobin 13.8 g/dL (13.0-17.5) Hematocrit 39.7 % (39.0-53.0) Mean Corpuscular Volume 92 fL (79-100) Mean Corpuscular Hemoglobin 32 pg (25-35) Mean Corpuscular Hemoglobin Concent 35 g/dL (31-37) Red Cell Distribution Width 20.6 % (11.5-14.5) Platelet Count 133 x10^3/uL (140-400) Neutrophils (%) (Auto) 92 % (31-73) Lymphocytes (%) (Auto) 1 % (24-48) Monocytes (%) (Auto) 7 % (0-9) Eosinophils (%) (Auto) 0 % (0-3) Basophils (%) (Auto) 0 % (0-3) Neutrophils # (Auto) 22.5 x10^3uL (1.8-7.7) Lymphocytes # (Auto) 0.3 x10^3/uL (1.0-4.8) Monocytes # (Auto) 1.6 x10^3/uL (0.0-1.1) Eosinophils # (Auto) 0.0 x10^3/uL (0.0-0.7) Basophils # (Auto) 0.1 x10^3/uL (0.0-0.2) Segmented Neutrophils % 86 % (35-66) Band Neutrophils % 9 % (0-9) Monocytes % 4 % (0-10) Eosinophils % 1 % (0-5) Platelet Estimate Adequate (ADEQUATE) Polychromasia Slight Anisocytosis Mod Target Cells Present Prothrombin Time 22.6 SEC (11.7-14.0) Prothromb Time International Ratio 2.1 (0.8-1.1) Sodium Level 124 mmol/L (136-145) Potassium Level 4.2 mmol/L (3.5-5.1) Chloride Level 86 mmol/L (98-107) Carbon Dioxide Level 30 mmol/L (21-32) Anion Gap 8 (6-14) 14 mmol/L (6-14) Blood Urea Nitrogen 24 mg/dL (8-26) Creatinine 0.8 mg/dL (0.7-1.3) Estimated GFR (Cockcroft-Gault) 94.5 Glucose Level 89 mg/dL (70-99) 94 mg/dL (70-99) Lactic Acid Level 2.0 mmol/L (0.4-2.0) Calcium Level 8.7 mg/dL (8.5-10.1) Magnesium Level 2.3 mg/dL (1.8-2.4) Total Bilirubin 23.0 mg/dL (0.2-1.0) Direct Bilirubin 17.7 mg/dL (0.0-0.2) Aspartate Amino Transf (AST/SGOT) 141 U/L (15-37) Alanine Aminotransferase (ALT/SGPT) 73 U/L (16-63) Alkaline Phosphatase 932 U/L (46-116) Troponin I Quantitative < 0.017 ng/mL (0.000-0.055) AM-Rdu-F-Type Natriuretic Peptide 695 pg/mL (0-124) Total Protein 5.7 g/dL (6.4-8.2) Albumin 1.9 g/dL (3.4-5.0) Lipase 213 U/L (73-393) Bedside Hemoglobin 16.3 g/dL (14-18) Bedside Hematocrit 48 % (37-52) Bedside Sodium 124 mmol/L (135-145) Bedside Potassium 3.9 mmol/L (3.5-5.0) Bedside Chloride 84 mmol/L (98-110) Bedside Total CO2 30 mmol/L (23-32) Bedside Blood Urea Nitrogen 26 mg/dL (8-26) Bedside Creatinine 0.9 mg/dL (0.5-1.4) Bedside Ionized Calcium (Deuce) 1.06 mmol/L (1.13-1.32) Urine Collection Type Unknown Urine Color [place] Urine Clarity Clear Urine pH 5.5 Urine Specific [place] 1.025 Urine Protein Negative mg/dL (NEG-TRACE) Urine Glucose (UA) Negative mg/dL (NEG) Urine Ketones (Stick) Trace mg/dL (NEG) Urine Blood Negative (NEG) Urine Nitrite Negative (NEG) Urine Bilirubin Large (NEG) Urine Urobilinogen Dipstick 0.2 mg/dL (0.2 mg/dL) Urine Leukocyte Esterase Small (NEG) Urine RBC 0 /HPF (0-2) Urine WBC Occ /HPF (0-4) Urine Squamous Epithelial Cells Occ /LPF Urine Bacteria Few /HPF (0-FEW) Urine Hyaline Casts Occasional /HPF Urine Granular Casts Occasional /HPF Urine Mucus Mod /LPF Laboratory Tests Test 08/19/16 11:00 08/19/16 11:07 08/19/16 11:15 White Blood Count 24.5 x10^3/uL (4.0-11.0) Red Blood Count 4.34 x10^6/uL (4.30-5.70) Hemoglobin 13.8 g/dL (13.0-17.5) Hematocrit 39.7 % (39.0-53.0) Mean Corpuscular Volume 92 fL (79-100) Mean Corpuscular Hemoglobin 32 pg (25-35) Mean Corpuscular Hemoglobin Concent 35 g/dL (31-37) Red Cell Distribution Width 20.6 % (11.5-14.5) Platelet Count 133 x10^3/uL (140-400) Neutrophils (%) (Auto) 92 % (31-73) Lymphocytes (%) (Auto) 1 % (24-48) Monocytes (%) (Auto) 7 % (0-9) Eosinophils (%) (Auto) 0 % (0-3) Basophils (%) (Auto) 0 % (0-3) Neutrophils # (Auto) 22.5 x10^3uL (1.8-7.7) Lymphocytes # (Auto) 0.3 x10^3/uL (1.0-4.8) Monocytes # (Auto) 1.6 x10^3/uL (0.0-1.1) Eosinophils # (Auto) 0.0 x10^3/uL (0.0-0.7) Basophils # (Auto) 0.1 x10^3/uL (0.0-0.2) Segmented Neutrophils % 86 % (35-66) Band Neutrophils % 9 % (0-9) Monocytes % 4 % (0-10) Eosinophils % 1 % (0-5) Platelet Estimate Adequate (ADEQUATE) Polychromasia Slight Anisocytosis Mod Target Cells Present Prothrombin Time 22.6 SEC (11.7-14.0) Prothromb Time International Ratio 2.1 (0.8-1.1) Sodium Level 124 mmol/L (136-145) Potassium Level 4.2 mmol/L (3.5-5.1) Chloride Level 86 mmol/L (98-107) Carbon Dioxide Level 30 mmol/L (21-32) Anion Gap 8 (6-14) 14 mmol/L (6-14) Blood Urea Nitrogen 24 mg/dL (8-26) Creatinine 0.8 mg/dL (0.7-1.3) Estimated GFR (Cockcroft-Gault) 94.5 Glucose Level 89 mg/dL (70-99) 94 mg/dL (70-99) Lactic Acid Level 2.0 mmol/L (0.4-2.0) Calcium Level 8.7 mg/dL (8.5-10.1) Magnesium Level 2.3 mg/dL (1.8-2.4) Total Bilirubin 23.0 mg/dL (0.2-1.0) Direct Bilirubin 17.7 mg/dL (0.0-0.2) Aspartate Amino Transf (AST/SGOT) 141 U/L (15-37) Alanine Aminotransferase (ALT/SGPT) 73 U/L (16-63) Alkaline Phosphatase 932 U/L (46-116) Troponin I Quantitative < 0.017 ng/mL (0.000-0.055) RI-Uqr-H-Type Natriuretic Peptide 695 pg/mL (0-124) Total Protein 5.7 g/dL (6.4-8.2) Albumin 1.9 g/dL (3.4-5.0) Lipase 213 U/L (73-393) Bedside Hemoglobin 16.3 g/dL (14-18) Bedside Hematocrit 48 % (37-52) Bedside Sodium 124 mmol/L (135-145) Bedside Potassium 3.9 mmol/L (3.5-5.0) Bedside Chloride 84 mmol/L (98-110) Bedside Total CO2 30 mmol/L (23-32) Bedside Blood Urea Nitrogen 26 mg/dL (8-26) Bedside Creatinine 0.9 mg/dL (0.5-1.4) Bedside Ionized Calcium (Deuce) 1.06 mmol/L (1.13-1.32) Urine Collection Type Unknown Urine Color [place] Urine Clarity Clear Urine pH 5.5 Urine Specific [place] 1.025 Urine Protein Negative mg/dL (NEG-TRACE) Urine Glucose (UA) Negative mg/dL (NEG) Urine Ketones (Stick) Trace mg/dL (NEG) Urine Blood Negative (NEG) Urine Nitrite Negative (NEG) Urine Bilirubin Large (NEG) Urine Urobilinogen Dipstick 0.2 mg/dL (0.2 mg/dL) Urine Leukocyte Esterase Small (NEG) Urine RBC 0 /HPF (0-2) Urine WBC Occ /HPF (0-4) Urine Squamous Epithelial Cells Occ /LPF Urine Bacteria Few /HPF (0-FEW) Urine Hyaline Casts Occasional /HPF Urine Granular Casts Occasional /HPF Urine Mucus Mod /LPF Vitals Vital Signs Date Time Temp Pulse Resp B/P (MAP) Pulse Ox O2 Delivery O2 Flow Rate FiO2 08/19/16 11:41 68 20 127/64 (85) 93 08/19/16 10:55 97.6 Nasal Cannula 4.0 97.6 Assessment Assessment Leukocytosis, chronic slightly worse, d/w Dr De La Vega for Dr Santos Metastatic Gastric ca on chemo Anasarca Liver failure with ascites Pleural effusion Plan Plan d/c vanc cont zosyn for now, to change to po d/w daughter, DNR and DNI , they have decided d/w BRANDI Carrero MD Aug 19, 2016 14:44
[2016-08-19 15:00] VITALS: BP 136/75
--- NOTE | 2016-08-19 15:05 | PDOC2 ---
CONSULT Date of Consult Date of Consult DATE: 08/19/16 TIME: 14:54 Reason for Consult Reason for Consult: GE cancer Referring Physician Referring Physician: luis Silveira History of Present Illness Reason for Visit: Pt's daughter called our office today stating pt was having diffuse swelling, cough, was coming to ER. No fever, chills, n/v/d. Pt does not speak Serbian, further info not available, unsure of [place] language. Per onc office chart review, pt with h/o GE cancer diagnosed 09/30 s/p neoadjuvant chemo, esophagectomy 03/03 Mets to liver 10/02 with FOLFOX. Scans with continued progression 08/13/16 Started Cyramza first dose. Last Neulasta given 07/26/16. CT C/A/P with significant anasarca, bilateral pleural effusion, increased adenopathy. Labs actually fairly stable with significant bili, Alk phos elevation, low Na, neutrophilia. Per Dr. Dinh, family agreed to DNAR. Past Medical History Past Medical History gastric cancer, jaundice Heme/Onc: Anemia NOS, Cancer Hepatobiliary: Cirrhosis Past Surgical History Past Surgical History esophagectomy Past Surgical History: Other (Gastric vs esophageal =tumor resection - done at ) Family History Family History unable to obtain, noncontributory Family History: Hypertension Social History No ALCOHOL: none Drugs: None Current Problem List Problem List Problems Medical Problems: (1) Sepsis Status: Acute Current Medications Current Medications Current Medications Sodium Chloride 500 ml @ 500 mls/hr 1X ONCE IV Last administered on 08/19/16t 11:59; Start 08/19/16 at 11:45; Stop 08/19/16 at 12:44; Status DC Piperacillin Sod/ Tazobactam Sod (Zosyn Per Pharmacy) 1 each PRN DAILY PRN MC SEE COMMENTS; Start 08/19/16 at 11:45 Vancomycin HCl (Vanco Per Pharmacy) 1 each PRN DAILY PRN MC SEE COMMENTS; Start 08/19/16 at 11:45; Stop 08/19/16 at 14:44; Status DC Vancomycin HCl 1.25 gm/Sodium Chloride 250 ml @ 166.667 mls/hr 1X ONCE IV ; Start 08/19/16 at 12:00; Stop 08/19/16 at 13:29; Status DC Piperacillin Sod/ Tazobactam Sod 3.375 gm/Sodium Chloride 50 ml @ 100 mls/hr ONCE ONCE IV Last administered on 08/19/16t 11:58; Start 08/19/16 at 11:45; Stop 08/19/16 at 12:14; Status DC Iohexol (Omnipaque 300 Mg/ml) 75 ml 1X ONCE IV Last administered on 08/19/16t 12:03; Start 08/19/16 at 12:00; Stop 08/19/16 at 12:01; Status DC Info (Do NOT chart on this entry -- for MONITORING) 1 each PRN DAILY PRN MC SEE COMMENTS; Start 08/19/16 at 12:15; Stop 08/21/16 at 12:14 Ondansetron HCl (Zofran) 4 mg PRN Q8HRS PRN IV NAUSEA/VOMITING; Start 08/19/16 at 12:15; Stop 08/19/16 at 13:26; Status DC Fentanyl Citrate (Fentanyl 2ml Vial) 50 mcg PRN Q1HR PRN IV PAIN; Start at 12:15; Stop 08/20/16 at 12:14 Sodium Chloride 1,000 ml @ 1,000 mls/hr 1X ONCE IV ; Start 08/19/16 at 12:45; Stop 08/19/16 at 13:44; Status DC Ondansetron HCl (Zofran) 4 mg PRN Q6HRS PRN IV NAUSEA/VOMITING 1ST CHOICE; Start 08/19/16 at 13:23; Stop 08/20/16 at 13:22 Fentanyl Citrate (Fentanyl 2ml Vial) 50 mcg PRN Q2HR PRN IV PAIN SEVERE; Start 08/19/16 at 13:30 Atorvastatin Calcium (Lipitor) 10 mg DAILY PO ; Start 08/20/16 at 09:00; Status UNV Vitamin D (Vitamin D3) 1,000 unit DAILY PO ; Start 08/19/16 at 14:00 Levothyroxine Sodium (Synthroid) 50 mcg DAILY07 PO ; Start 08/19/16 at 14:00 Furosemide (Lasix) 60 mg 1X ONCE IVP ; Start 08/19/16 at 14:30; Stop 08/19/16 at 14:31; Status DC Enoxaparin Sodium (Lovenox 40mg Syringe) 40 mg Q24H SQ ; Start 08/19/16 at 15:00 Piperacillin Sod/ Tazobactam Sod 4.5 gm/Sodium Chloride 100 ml @ 200 mls/hr Q6HRS IV ; Start 08/19/16 at 18:00 Active Scripts Active Reported Vitamin D3 (Cholecalciferol (Vitamin D3)) 1,000 Unit Tablet 1,000 Unit PO DAILY Levothyroxine Sodium 50 Mcg Tablet 50 Mcg PO DAILY Allergies Allergies: Coded Allergies: No Known Drug Allergies (Unverified , 11/09/13) ROS Review of System unable to obtain other than that from the HPI due to language barrier, unclear of [place] language to obtain freelance interpreter/translator, daughter not available. Physical Exam General: Alert, No acute distress HEENT: Other (scleral icterus) Lungs: Clear to auscultation, Normal air movement Heart: Regular rate Abdomen: Other (distended, tense ascites) Extremities: Other (+ edema all extremities) Skin: Other (jaundiced) Psych/Mental Status: Other (cannot assess) Vitals VITALS Vital Signs Date Time Temp Pulse Resp B/P (MAP) Pulse Ox O2 Delivery O2 Flow Rate FiO2 08/19/16 11:41 68 20 127/64 (85) 93 08/19/16 10:55 97.6 Nasal Cannula 4.0 97.6 Labs Labs Laboratory Tests Test 08/19/16 11:00 08/19/16 11:07 08/19/16 11:15 White Blood Count 24.5 x10^3/uL (4.0-11.0) Red Blood Count 4.34 x10^6/uL (4.30-5.70) Hemoglobin 13.8 g/dL (13.0-17.5) Hematocrit 39.7 % (39.0-53.0) Mean Corpuscular Volume 92 fL (79-100) Mean Corpuscular Hemoglobin 32 pg (25-35) Mean Corpuscular Hemoglobin Concent 35 g/dL (31-37) Red Cell Distribution Width 20.6 % (11.5-14.5) Platelet Count 133 x10^3/uL (140-400) Neutrophils (%) (Auto) 92 % (31-73) Lymphocytes (%) (Auto) 1 % (24-48) Monocytes (%) (Auto) 7 % (0-9) Eosinophils (%) (Auto) 0 % (0-3) Basophils (%) (Auto) 0 % (0-3) Neutrophils # (Auto) 22.5 x10^3uL (1.8-7.7) Lymphocytes # (Auto) 0.3 x10^3/uL (1.0-4.8) Monocytes # (Auto) 1.6 x10^3/uL (0.0-1.1) Eosinophils # (Auto) 0.0 x10^3/uL (0.0-0.7) Basophils # (Auto) 0.1 x10^3/uL (0.0-0.2) Segmented Neutrophils % 86 % (35-66) Band Neutrophils % 9 % (0-9) Monocytes % 4 % (0-10) Eosinophils % 1 % (0-5) Platelet Estimate Adequate (ADEQUATE) Polychromasia Slight Anisocytosis Mod Target Cells Present Prothrombin Time 22.6 SEC (11.7-14.0) Prothromb Time International Ratio 2.1 (0.8-1.1) Sodium Level 124 mmol/L (136-145) Potassium Level 4.2 mmol/L (3.5-5.1) Chloride Level 86 mmol/L (98-107) Carbon Dioxide Level 30 mmol/L (21-32) Anion Gap 8 (6-14) 14 mmol/L (6-14) Blood Urea Nitrogen 24 mg/dL (8-26) Creatinine 0.8 mg/dL (0.7-1.3) Estimated GFR (Cockcroft-Gault) 94.5 Glucose Level 89 mg/dL (70-99) 94 mg/dL (70-99) Lactic Acid Level 2.0 mmol/L (0.4-2.0) Calcium Level 8.7 mg/dL (8.5-10.1) Magnesium Level 2.3 mg/dL (1.8-2.4) Total Bilirubin 23.0 mg/dL (0.2-1.0) Direct Bilirubin 17.7 mg/dL (0.0-0.2) Aspartate Amino Transf (AST/SGOT) 141 U/L (15-37) Alanine Aminotransferase (ALT/SGPT) 73 U/L (16-63) Alkaline Phosphatase 932 U/L (46-116) Troponin I Quantitative < 0.017 ng/mL (0.000-0.055) TJ-Yzs-E-Type Natriuretic Peptide 695 pg/mL (0-124) Total Protein 5.7 g/dL (6.4-8.2) Albumin 1.9 g/dL (3.4-5.0) Lipase 213 U/L (73-393) Bedside Hemoglobin 16.3 g/dL (14-18) Bedside Hematocrit 48 % (37-52) Bedside Sodium 124 mmol/L (135-145) Bedside Potassium 3.9 mmol/L (3.5-5.0) Bedside Chloride 84 mmol/L (98-110) Bedside Total CO2 30 mmol/L (23-32) Bedside Blood Urea Nitrogen 26 mg/dL (8-26) Bedside Creatinine 0.9 mg/dL (0.5-1.4) Bedside Ionized Calcium (Deuce) 1.06 mmol/L (1.13-1.32) Urine Collection Type Unknown Urine Color [place] Urine Clarity Clear Urine pH 5.5 Urine Specific [place] 1.025 Urine Protein Negative mg/dL (NEG-TRACE) Urine Glucose (UA) Negative mg/dL (NEG) Urine Ketones (Stick) Trace mg/dL (NEG) Urine Blood Negative (NEG) Urine Nitrite Negative (NEG) Urine Bilirubin Large (NEG) Urine Urobilinogen Dipstick 0.2 mg/dL (0.2 mg/dL) Urine Leukocyte Esterase Small (NEG) Urine RBC 0 /HPF (0-2) Urine WBC Occ /HPF (0-4) Urine Squamous Epithelial Cells Occ /LPF Urine Bacteria Few /HPF (0-FEW) Urine Hyaline Casts Occasional /HPF Urine Granular Casts Occasional /HPF Urine Mucus Mod /LPF Laboratory Tests Test 08/19/16 11:00 08/19/16 11:07 08/19/16 11:15 White Blood Count 24.5 x10^3/uL (4.0-11.0) Red Blood Count 4.34 x10^6/uL (4.30-5.70) Hemoglobin 13.8 g/dL (13.0-17.5) Hematocrit 39.7 % (39.0-53.0) Mean Corpuscular Volume 92 fL (79-100) Mean Corpuscular Hemoglobin 32 pg (25-35) Mean Corpuscular Hemoglobin Concent 35 g/dL (31-37) Red Cell Distribution Width 20.6 % (11.5-14.5) Platelet Count 133 x10^3/uL (140-400) Neutrophils (%) (Auto) 92 % (31-73) Lymphocytes (%) (Auto) 1 % (24-48) Monocytes (%) (Auto) 7 % (0-9) Eosinophils (%) (Auto) 0 % (0-3) Basophils (%) (Auto) 0 % (0-3) Neutrophils # (Auto) 22.5 x10^3uL (1.8-7.7) Lymphocytes # (Auto) 0.3 x10^3/uL (1.0-4.8) Monocytes # (Auto) 1.6 x10^3/uL (0.0-1.1) Eosinophils # (Auto) 0.0 x10^3/uL (0.0-0.7) Basophils # (Auto) 0.1 x10^3/uL (0.0-0.2) Segmented Neutrophils % 86 % (35-66) Band Neutrophils % 9 % (0-9) Monocytes % 4 % (0-10) Eosinophils % 1 % (0-5) Platelet Estimate Adequate (ADEQUATE) Polychromasia Slight Anisocytosis Mod Target Cells Present Prothrombin Time 22.6 SEC (11.7-14.0) Prothromb Time International Ratio 2.1 (0.8-1.1) Sodium Level 124 mmol/L (136-145) Potassium Level 4.2 mmol/L (3.5-5.1) Chloride Level 86 mmol/L (98-107) Carbon Dioxide Level 30 mmol/L (21-32) Anion Gap 8 (6-14) 14 mmol/L (6-14) Blood Urea Nitrogen 24 mg/dL (8-26) Creatinine 0.8 mg/dL (0.7-1.3) Estimated GFR (Cockcroft-Gault) 94.5 Glucose Level 89 mg/dL (70-99) 94 mg/dL (70-99) Lactic Acid Level 2.0 mmol/L (0.4-2.0) Calcium Level 8.7 mg/dL (8.5-10.1) Magnesium Level 2.3 mg/dL (1.8-2.4) Total Bilirubin 23.0 mg/dL (0.2-1.0) Direct Bilirubin 17.7 mg/dL (0.0-0.2) Aspartate Amino Transf (AST/SGOT) 141 U/L (15-37) Alanine Aminotransferase (ALT/SGPT) 73 U/L (16-63) Alkaline Phosphatase 932 U/L (46-116) Troponin I Quantitative < 0.017 ng/mL (0.000-0.055) ZH-Spo-D-Type Natriuretic Peptide 695 pg/mL (0-124) Total Protein 5.7 g/dL (6.4-8.2) Albumin 1.9 g/dL (3.4-5.0) Lipase 213 U/L (73-393) Bedside Hemoglobin 16.3 g/dL (14-18) Bedside Hematocrit 48 % (37-52) Bedside Sodium 124 mmol/L (135-145) Bedside Potassium 3.9 mmol/L (3.5-5.0) Bedside Chloride 84 mmol/L (98-110) Bedside Total CO2 30 mmol/L (23-32) Bedside Blood Urea Nitrogen 26 mg/dL (8-26) Bedside Creatinine 0.9 mg/dL (0.5-1.4) Bedside Ionized Calcium (Deuce) 1.06 mmol/L (1.13-1.32) Urine Collection Type Unknown Urine Color [place] Urine Clarity Clear Urine pH 5.5 Urine Specific [place] 1.025 Urine Protein Negative mg/dL (NEG-TRACE) Urine Glucose (UA) Negative mg/dL (NEG) Urine Ketones (Stick) Trace mg/dL (NEG) Urine Blood Negative (NEG) Urine Nitrite Negative (NEG) Urine Bilirubin Large (NEG) Urine Urobilinogen Dipstick 0.2 mg/dL (0.2 mg/dL) Urine Leukocyte Esterase Small (NEG) Urine RBC 0 /HPF (0-2) Urine WBC Occ /HPF (0-4) Urine Squamous Epithelial Cells Occ /LPF Urine Bacteria Few /HPF (0-FEW) Urine Hyaline Casts Occasional /HPF Urine Granular Casts Occasional /HPF Urine Mucus Mod /LPF Images Images CT C/A/P reviewed, previous scans also with progression Assessment/Plan Assessment/Plan 1. 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 D/w daughter, unsure how much she understood. Dr. Dinh discussed code status and she agreed to DNAR. 2. Chronic neutrophilia- fairly unchanged since labs in clinic recently Last neupogen 07/26 ID consulted, no clear infection 3. Obstructive jaundice- stable Gi following, reports no clear need for MRCP unless pt uncomfortable with itching, cannot gather that that is the case. Bili actually stable from labs last month in clinic Recommend hospice. Dr. Eason is covering tomorrow if any needs arise. D/W Dr. Dinh and Pavel. DALTON MELENDREZ DO Aug 19, 2016 15:05
--- NOTE | 2016-08-19 15:19 | PDOC2 ---
CONSULT Date of Consult Date of Consult DATE: 08/19/16 TIME: 14:53 Reason for Consult Reason for Consult: Jaundice Referring Physician Referring Physician: Dr. Maxwell Source Source: Caregiver, Chart review, Patient History of Present Illness Reason for Visit: 76 y/o male who was brought to ER by family for general decline, edema, weakness. Marked jaundice noted. We have been asked to see re: this. Although quite a language barrier, he seems to deny any pain or pruritis. There is no mention of nausea or vomiting. Imaging this admission has demonstrated biliary dilation to the area of common duct with a dilated GB and cholelithiasis (known from past imaging); a pancreatic or biliary mass was not commented on. He initially presented to [facility] in 2013 with BOOGIE. Per a note by Dr. 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 EUS at [facility] did demonstrate sofie metastatic disease at that time. Though details are scant, I believe he had pre-op treatment at least with radiation and underwent resection with a gastric pull-up. Serial PET/CT scans here since February have shown progression of metastatic disease in the abdomen and probably chest as well. RUQ activity has been noted to be increasing with portal LN's noted. In conversation with Dr. De La Vega, his jaundice has been present for some time. He recently started a new chemotherapeutic agent. He remains w/o other GI complaints. There has been no history of any overt GI bleeding. Past Medical History Cardiovascular: Hyperlipidemia Renal/: Benign prostatic enlarg. Past Surgical History Past Surgical History: Other (TURP, bilateral IHR's, distal esophagectomy/ proximal gastrectomy with gastric pull-up) Family History Family History: Hypertension Social History No ALCOHOL: none Drugs: None Current Problem List Problem List Problems Medical Problems: (1) Sepsis Status: Acute Current Medications Current Medications Current Medications Sodium Chloride 500 ml @ 500 mls/hr 1X ONCE IV Last administered on 08/19/16t 11:59; Start 08/19/16 at 11:45; Stop 08/19/16 at 12:44; Status DC Piperacillin Sod/ Tazobactam Sod (Zosyn Per Pharmacy) 1 each PRN DAILY PRN MC SEE COMMENTS; Start 08/19/16 at 11:45 Vancomycin HCl (Vanco Per Pharmacy) 1 each PRN DAILY PRN MC SEE COMMENTS; Start 08/19/16 at 11:45; Stop 08/19/16 at 14:44; Status DC Vancomycin HCl 1.25 gm/Sodium Chloride 250 ml @ 166.667 mls/hr 1X ONCE IV ; Start 08/19/16 at 12:00; Stop 08/19/16 at 13:29; Status DC Piperacillin Sod/ Tazobactam Sod 3.375 gm/Sodium Chloride 50 ml @ 100 mls/hr ONCE ONCE IV Last administered on 08/19/16 11:58; Start 08/19/16 at 11:45; Stop 08/19/16 at 12:14; Status DC Iohexol (Omnipaque 300 Mg/ml) 75 ml 1X ONCE IV Last administered on 08/19/16t 12:03; Start 08/19/16 at 12:00; Stop 08/19/16 at 12:01; Status DC Info (Do NOT chart on this entry -- for MONITORING) 1 each PRN DAILY PRN MC SEE COMMENTS; Start 08/19/16 at 12:15; Stop 08/21/16 at 12:14 Ondansetron HCl (Zofran) 4 mg PRN Q8HRS PRN IV NAUSEA/VOMITING; Start 08/19/16 at 12:15; Stop 08/19/16 at 13:26; Status DC Fentanyl Citrate (Fentanyl 2ml Vial) 50 mcg PRN Q1HR PRN IV PAIN; Start at 12:15; Stop 08/20/16 at 12:14 Sodium Chloride 1,000 ml @ 1,000 mls/hr 1X ONCE IV ; Start 08/19/16 at 12:45; Stop 08/19/16 at 13:44; Status DC Ondansetron HCl (Zofran) 4 mg PRN Q6HRS PRN IV NAUSEA/VOMITING 1ST CHOICE; Start 08/19/16 at 13:23; Stop 08/20/16 at 13:22 Fentanyl Citrate (Fentanyl 2ml Vial) 50 mcg PRN Q2HR PRN IV PAIN SEVERE; Start 08/19/16 at 13:30 Atorvastatin Calcium (Lipitor) 10 mg DAILY PO ; Start 08/20/16 at 09:00; Status UNV Vitamin D (Vitamin D3) 1,000 unit DAILY PO ; Start 08/19/16 at 14:00 Levothyroxine Sodium (Synthroid) 50 mcg DAILY07 PO ; Start 08/19/16 at 14:00 Furosemide (Lasix) 60 mg 1X ONCE IVP ; Start 08/19/16 at 14:30; Stop 08/19/16 at 14:31; Status DC Enoxaparin Sodium (Lovenox 40mg Syringe) 40 mg Q24H SQ ; Start 08/19/16 at 15:00 Piperacillin Sod/ Tazobactam Sod 4.5 gm/Sodium Chloride 100 ml @ 200 mls/hr Q6HRS IV ; Start 08/19/16 at 18:00 Active Scripts Active Reported Vitamin D3 (Cholecalciferol (Vitamin D3)) 1,000 Unit Tablet 1,000 Unit PO DAILY Levothyroxine Sodium 50 Mcg Tablet 50 Mcg PO DAILY Allergies Allergies: Coded Allergies: No Known Drug Allergies (Unverified , 11/09/13) ROS Review of System 10-point review otherwise negative. Physical Exam General: Alert, Oriented X3, Cooperative, No acute distress HEENT: Other (markedly icteric sclerae) Lungs: Clear to auscultation, Other (diminished sounds both bases) Heart: Regular rate, Normal S1, Normal S2, No murmurs Abdomen: Normal bowel sounds, Soft (doughy), No tenderness, No hepatosplenomegaly, No masses Extremities: No cyanosis, Other (LE edema) Skin: Other (generallized icterus) Neuro: Normal speech, Strength at 5/5 X4 ext, Normal tone, Sensation intact, Cranial nerves 3-12 NL, Reflexes 2+ Psych/Mental Status: Mental status NL, Mood NL MUSCULOSKELETAL: No deformity, No swelling Vitals VITALS Vital Signs Date Time Temp Pulse Resp B/P (MAP) Pulse Ox O2 Delivery O2 Flow Rate FiO2 08/19/16 11:41 68 20 127/64 (85) 93 08/19/16 10:55 97.6 Nasal Cannula 4.0 97.6 Labs Labs Laboratory Tests Test 08/19/16 11:00 08/19/16 11:07 08/19/16 11:15 White Blood Count 24.5 x10^3/uL (4.0-11.0) Red Blood Count 4.34 x10^6/uL (4.30-5.70) Hemoglobin 13.8 g/dL (13.0-17.5) Hematocrit 39.7 % (39.0-53.0) Mean Corpuscular Volume 92 fL (79-100) Mean Corpuscular Hemoglobin 32 pg (25-35) Mean Corpuscular Hemoglobin Concent 35 g/dL (31-37) Red Cell Distribution Width 20.6 % (11.5-14.5) Platelet Count 133 x10^3/uL (140-400) Neutrophils (%) (Auto) 92 % (31-73) Lymphocytes (%) (Auto) 1 % (24-48) Monocytes (%) (Auto) 7 % (0-9) Eosinophils (%) (Auto) 0 % (0-3) Basophils (%) (Auto) 0 % (0-3) Neutrophils # (Auto) 22.5 x10^3uL (1.8-7.7) Lymphocytes # (Auto) 0.3 x10^3/uL (1.0-4.8) Monocytes # (Auto) 1.6 x10^3/uL (0.0-1.1) Eosinophils # (Auto) 0.0 x10^3/uL (0.0-0.7) Basophils # (Auto) 0.1 x10^3/uL (0.0-0.2) Segmented Neutrophils % 86 % (35-66) Band Neutrophils % 9 % (0-9) Monocytes % 4 % (0-10) Eosinophils % 1 % (0-5) Platelet Estimate Adequate (ADEQUATE) Polychromasia Slight Anisocytosis Mod Target Cells Present Prothrombin Time 22.6 SEC (11.7-14.0) Prothromb Time International Ratio 2.1 (0.8-1.1) Sodium Level 124 mmol/L (136-145) Potassium Level 4.2 mmol/L (3.5-5.1) Chloride Level 86 mmol/L (98-107) Carbon Dioxide Level 30 mmol/L (21-32) Anion Gap 8 (6-14) 14 mmol/L (6-14) Blood Urea Nitrogen 24 mg/dL (8-26) Creatinine 0.8 mg/dL (0.7-1.3) Estimated GFR (Cockcroft-Gault) 94.5 Glucose Level 89 mg/dL (70-99) 94 mg/dL (70-99) Lactic Acid Level 2.0 mmol/L (0.4-2.0) Calcium Level 8.7 mg/dL (8.5-10.1) Magnesium Level 2.3 mg/dL (1.8-2.4) Total Bilirubin 23.0 mg/dL (0.2-1.0) Direct Bilirubin 17.7 mg/dL (0.0-0.2) Aspartate Amino Transf (AST/SGOT) 141 U/L (15-37) Alanine Aminotransferase (ALT/SGPT) 73 U/L (16-63) Alkaline Phosphatase 932 U/L (46-116) Troponin I Quantitative < 0.017 ng/mL (0.000-0.055) BE-Waz-Y-Type Natriuretic Peptide 695 pg/mL (0-124) Total Protein 5.7 g/dL (6.4-8.2) Albumin 1.9 g/dL (3.4-5.0) Lipase 213 U/L (73-393) Bedside Hemoglobin 16.3 g/dL (14-18) Bedside Hematocrit 48 % (37-52) Bedside Sodium 124 mmol/L (135-145) Bedside Potassium 3.9 mmol/L (3.5-5.0) Bedside Chloride 84 mmol/L (98-110) Bedside Total CO2 30 mmol/L (23-32) Bedside Blood Urea Nitrogen 26 mg/dL (8-26) Bedside Creatinine 0.9 mg/dL (0.5-1.4) Bedside Ionized Calcium (Deuce) 1.06 mmol/L (1.13-1.32) Urine Collection Type Unknown Urine Color [place] Urine Clarity Clear Urine pH 5.5 Urine Specific [place] 1.025 Urine Protein Negative mg/dL (NEG-TRACE) Urine Glucose (UA) Negative mg/dL (NEG) Urine Ketones (Stick) Trace mg/dL (NEG) Urine Blood Negative (NEG) Urine Nitrite Negative (NEG) Urine Bilirubin Large (NEG) Urine Urobilinogen Dipstick 0.2 mg/dL (0.2 mg/dL) Urine Leukocyte Esterase Small (NEG) Urine RBC 0 /HPF (0-2) Urine WBC Occ /HPF (0-4) Urine Squamous Epithelial Cells Occ /LPF Urine Bacteria Few /HPF (0-FEW) Urine Hyaline Casts Occasional /HPF Urine Granular Casts Occasional /HPF Urine Mucus Mod /LPF Laboratory Tests Test 08/19/16 11:00 08/19/16 11:07 08/19/16 11:15 White Blood Count 24.5 x10^3/uL (4.0-11.0) Red Blood Count 4.34 x10^6/uL (4.30-5.70) Hemoglobin 13.8 g/dL (13.0-17.5) Hematocrit 39.7 % (39.0-53.0) Mean Corpuscular Volume 92 fL (79-100) Mean Corpuscular Hemoglobin 32 pg (25-35) Mean Corpuscular Hemoglobin Concent 35 g/dL (31-37) Red Cell Distribution Width 20.6 % (11.5-14.5) Platelet Count 133 x10^3/uL (140-400) Neutrophils (%) (Auto) 92 % (31-73) Lymphocytes (%) (Auto) 1 % (24-48) Monocytes (%) (Auto) 7 % (0-9) Eosinophils (%) (Auto) 0 % (0-3) Basophils (%) (Auto) 0 % (0-3) Neutrophils # (Auto) 22.5 x10^3uL (1.8-7.7) Lymphocytes # (Auto) 0.3 x10^3/uL (1.0-4.8) Monocytes # (Auto) 1.6 x10^3/uL (0.0-1.1) Eosinophils # (Auto) 0.0 x10^3/uL (0.0-0.7) Basophils # (Auto) 0.1 x10^3/uL (0.0-0.2) Segmented Neutrophils % 86 % (35-66) Band Neutrophils % 9 % (0-9) Monocytes % 4 % (0-10) Eosinophils % 1 % (0-5) Platelet Estimate Adequate (ADEQUATE) Polychromasia Slight Anisocytosis Mod Target Cells Present Prothrombin Time 22.6 SEC (11.7-14.0) Prothromb Time International Ratio 2.1 (0.8-1.1) Sodium Level 124 mmol/L (136-145) Potassium Level 4.2 mmol/L (3.5-5.1) Chloride Level 86 mmol/L (98-107) Carbon Dioxide Level 30 mmol/L (21-32) Anion Gap 8 (6-14) 14 mmol/L (6-14) Blood Urea Nitrogen 24 mg/dL (8-26) Creatinine 0.8 mg/dL (0.7-1.3) Estimated GFR (Cockcroft-Gault) 94.5 Glucose Level 89 mg/dL (70-99) 94 mg/dL (70-99) Lactic Acid Level 2.0 mmol/L (0.4-2.0) Calcium Level 8.7 mg/dL (8.5-10.1) Magnesium Level 2.3 mg/dL (1.8-2.4) Total Bilirubin 23.0 mg/dL (0.2-1.0) Direct Bilirubin 17.7 mg/dL (0.0-0.2) Aspartate Amino Transf (AST/SGOT) 141 U/L (15-37) Alanine Aminotransferase (ALT/SGPT) 73 U/L (16-63) Alkaline Phosphatase 932 U/L (46-116) Troponin I Quantitative < 0.017 ng/mL (0.000-0.055) RB-Ean-M-Type Natriuretic Peptide 695 pg/mL (0-124) Total Protein 5.7 g/dL (6.4-8.2) Albumin 1.9 g/dL (3.4-5.0) Lipase 213 U/L (73-393) Bedside Hemoglobin 16.3 g/dL (14-18) Bedside Hematocrit 48 % (37-52) Bedside Sodium 124 mmol/L (135-145) Bedside Potassium 3.9 mmol/L (3.5-5.0) Bedside Chloride 84 mmol/L (98-110) Bedside Total CO2 30 mmol/L (23-32) Bedside Blood Urea Nitrogen 26 mg/dL (8-26) Bedside Creatinine 0.9 mg/dL (0.5-1.4) Bedside Ionized Calcium (Deuce) 1.06 mmol/L (1.13-1.32) Urine Collection Type Unknown Urine Color [place] Urine Clarity Clear Urine pH 5.5 Urine Specific [place] 1.025 Urine Protein Negative mg/dL (NEG-TRACE) Urine Glucose (UA) Negative mg/dL (NEG) Urine Ketones (Stick) Trace mg/dL (NEG) Urine Blood Negative (NEG) Urine Nitrite Negative (NEG) Urine Bilirubin Large (NEG) Urine Urobilinogen Dipstick 0.2 mg/dL (0.2 mg/dL) Urine Leukocyte Esterase Small (NEG) Urine RBC 0 /HPF (0-2) Urine WBC Occ /HPF (0-4) Urine Squamous Epithelial Cells Occ /LPF Urine Bacteria Few /HPF (0-FEW) Urine Hyaline Casts Occasional /HPF Urine Granular Casts Occasional /HPF Urine Mucus Mod /LPF Elevated INR, cholestatic LFT's with marked, primarily direct, hyperbilirubinemia. Leukocytosis. Images Images Bilateral pleural effusions, ascites, anasarca, abdominal adenopathy, biliary obstruction and gallstones noted. Assessment/Plan Assessment/Plan IMP: 1. Obstructive jaundice. Per conversation with Dr. De La Vega, this is not new per their office notes. It seems tempting to think this might be on the basis of extrinsic bile duct compression by known adenopathy, however, has stones and a small pancreatic or biliary lesion also possible. 2. 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 3. Abnormal coags; these are likely due to fat (and vit. K) malabsorption from inadequate bile salts in gut secondary to the obstruction. REC: 1. Dr. De La Vega feels palliative care probably best. I would largely concur unless he has significant pruritis in which case some sort of drainage might be considered if refractory to medical therapy. 2. If further investigation desired, would do MRCP w/o contrast. 3. As long as not bleeding, would not address the coagulopathy, however , if invasive procedures needed would give vit. K. --will follow and assist as able. Thank you for allowing me to assist in the care of this patient. Please call if questions. PAOLO SWANN MD Aug 19, 2016 15:19
--- NOTE | 2016-08-19 16:15 | RAD ---
Indication pain and swelling. Grayscale color Doppler and spectral imaging was performed. Examination was targeted to the veins of the lower extremities. Generalized soft tissue swelling is noted. Bilaterally the common femoral, femoral and popliteal vessels demonstrate normal flow compressibility and augmentation. No thrombus is seen. The visualized calf veins bilaterally appeared unremarkable. IMPRESSION: Negative bilateral lower extremity venous analysis for DVT
--- NOTE | 2016-08-19 17:00 | PDOC2 ---
CONSULT Date of Consult Date of Consult DATE: 08/19/16 TIME: 16:59 Reason for Consult Reason for Consult: ABNORMAL CXR AND CT OF CHEST Referring Physician Referring Physician: CECILIA Identification/Chief Complaint Chief Complaint SWELLING ALL OVER Problems: History of Present Illness Reason for Visit: PT WITH METASTATIC GASTRIC CANCER PRESENT WITH SWELLING ALL OVER CT OF CHEST NO PE LARGE EFFUSION PT CURRENTLY DENIES GENET DAUGHTER AT BEDSIDE PT CONCERNED ABOUT SWOLLEN LEGS AND TIGHT ABDOMINAL WALL Past Medical History Cardiovascular: Hyperlipidemia GI: Other (METASTATIC GRASTIC CA) Renal/: Benign prostatic enlarg. Past Surgical History Past Surgical History: Other (TURP, bilateral IHR's, distal esophagectomy/ proximal gastrectomy with gastric pull-up) Family History Family History: Hypertension Social History No ALCOHOL: none Drugs: None Current Problem List Problem List Problems Medical Problems: (1) Sepsis Status: Acute Current Medications Current Medications Current Medications Sodium Chloride 500 ml @ 500 mls/hr 1X ONCE IV Last administered on 08/19/16 11:59; Start 08/19/16 at 11:45; Stop 08/19/16 at 12:44; Status DC Piperacillin Sod/ Tazobactam Sod (Zosyn Per Pharmacy) 1 each PRN DAILY PRN MC SEE COMMENTS; Start 08/19/16 at 11:45 Vancomycin HCl (Vanco Per Pharmacy) 1 each PRN DAILY PRN MC SEE COMMENTS; Start 08/19/16 at 11:45; Stop 08/19/16 at 14:44; Status DC Vancomycin HCl 1.25 gm/Sodium Chloride 250 ml @ 166.667 mls/hr 1X ONCE IV Last administered on 08/19/16 15:14; Start 08/19/16 at 12:00; Stop 08/19/16 at 13: 29; Status DC Piperacillin Sod/ Tazobactam Sod 3.375 gm/Sodium Chloride 50 ml @ 100 mls/hr ONCE ONCE IV Last administered on 08/19/16 11:58; Start 08/19/16 at 11:45; Stop 08/19/16 at 12:14; Status DC Iohexol (Omnipaque 300 Mg/ml) 75 ml 1X ONCE IV Last administered on 08/19/16 12:03; Start 08/19/16 at 12:00; Stop 08/19/16 at 12:01; Status DC Info (Do NOT chart on this entry -- for MONITORING) 1 each PRN DAILY PRN MC SEE COMMENTS; Start 08/19/16 at 12:15; Stop 08/21/16 at 12:14 Ondansetron HCl (Zofran) 4 mg PRN Q8HRS PRN IV NAUSEA/VOMITING; Start 08/19/16 at 12:15; Stop 08/19/16 at 13:26; Status DC Fentanyl Citrate (Fentanyl 2ml Vial) 50 mcg PRN Q1HR PRN IV PAIN; Start at 12:15; Stop 08/20/16 at 12:14 Sodium Chloride 1,000 ml @ 1,000 mls/hr 1X ONCE IV Last administered on t 15:14; Start 08/19/16 at 12:45; Stop 08/19/16 at 13:44; Status DC Ondansetron HCl (Zofran) 4 mg PRN Q6HRS PRN IV NAUSEA/VOMITING 1ST CHOICE; Start 08/19/16 at 13:23; Stop 08/20/16 at 13:22 Fentanyl Citrate (Fentanyl 2ml Vial) 50 mcg PRN Q2HR PRN IV PAIN SEVERE; Start 08/19/16 at 13:30 Atorvastatin Calcium (Lipitor) 10 mg DAILY PO ; Start 08/20/16 at 09:00; Status UNV Vitamin D (Vitamin D3) 1,000 unit DAILY PO ; Start 08/19/16 at 14:00 Levothyroxine Sodium (Synthroid) 50 mcg DAILY07 PO ; Start 08/19/16 at 14:00 Furosemide (Lasix) 60 mg 1X ONCE IVP ; Start 08/19/16 at 14:30; Stop 08/19/16 at 14:31; Status DC Enoxaparin Sodium (Lovenox 40mg Syringe) 40 mg Q24H SQ ; Start 08/19/16 at 15:00 Piperacillin Sod/ Tazobactam Sod 4.5 gm/Sodium Chloride 100 ml @ 200 mls/hr Q6HRS IV ; Start 08/19/16 at 18:00 Active Scripts Active Reported Vitamin D3 (Cholecalciferol (Vitamin D3)) 1,000 Unit Tablet 1,000 Unit PO DAILY Levothyroxine Sodium 50 Mcg Tablet 50 Mcg PO DAILY Allergies Allergies: Coded Allergies: No Known Drug Allergies (Unverified , 11/09/13) ROS Respiratory: YES: Cough, SOB with excertion, Other Gastrointestinal: Yes Abdominal Pain Physical Exam General: Alert HEENT: EOMI, Other Lungs: Other (DECREASE BS BIALTERALLY) Heart: Regular rate, Normal S1, Normal S2 Abdomen: Other (ASCITES) Extremities: Other (2 EDEMA) Skin: Other Psych/Mental Status: Mental status NL, Mood NL Vitals VITALS Vital Signs Date Time Temp Pulse Resp B/P (MAP) Pulse Ox O2 Delivery O2 Flow Rate FiO2 08/19/16 15:00 97.4 76 20 136/75 (95) 91 Nasal Cannula 4.0 97.4 Labs Labs Laboratory Tests Test 08/19/16 11:00 08/19/16 11:07 08/19/16 11:15 White Blood Count 24.5 x10^3/uL (4.0-11.0) Red Blood Count 4.34 x10^6/uL (4.30-5.70) Hemoglobin 13.8 g/dL (13.0-17.5) Hematocrit 39.7 % (39.0-53.0) Mean Corpuscular Volume 92 fL (79-100) Mean Corpuscular Hemoglobin 32 pg (25-35) Mean Corpuscular Hemoglobin Concent 35 g/dL (31-37) Red Cell Distribution Width 20.6 % (11.5-14.5) Platelet Count 133 x10^3/uL (140-400) Neutrophils (%) (Auto) 92 % (31-73) Lymphocytes (%) (Auto) 1 % (24-48) Monocytes (%) (Auto) 7 % (0-9) Eosinophils (%) (Auto) 0 % (0-3) Basophils (%) (Auto) 0 % (0-3) Neutrophils # (Auto) 22.5 x10^3uL (1.8-7.7) Lymphocytes # (Auto) 0.3 x10^3/uL (1.0-4.8) Monocytes # (Auto) 1.6 x10^3/uL (0.0-1.1) Eosinophils # (Auto) 0.0 x10^3/uL (0.0-0.7) Basophils # (Auto) 0.1 x10^3/uL (0.0-0.2) Segmented Neutrophils % 86 % (35-66) Band Neutrophils % 9 % (0-9) Monocytes % 4 % (0-10) Eosinophils % 1 % (0-5) Platelet Estimate Adequate (ADEQUATE) Polychromasia Slight Anisocytosis Mod Target Cells Present Prothrombin Time 22.6 SEC (11.7-14.0) Prothromb Time International Ratio 2.1 (0.8-1.1) Sodium Level 124 mmol/L (136-145) Potassium Level 4.2 mmol/L (3.5-5.1) Chloride Level 86 mmol/L (98-107) Carbon Dioxide Level 30 mmol/L (21-32) Anion Gap 8 (6-14) 14 mmol/L (6-14) Blood Urea Nitrogen 24 mg/dL (8-26) Creatinine 0.8 mg/dL (0.7-1.3) Estimated GFR (Cockcroft-Gault) 94.5 Glucose Level 89 mg/dL (70-99) 94 mg/dL (70-99) Lactic Acid Level 2.0 mmol/L (0.4-2.0) Calcium Level 8.7 mg/dL (8.5-10.1) Magnesium Level 2.3 mg/dL (1.8-2.4) Total Bilirubin 23.0 mg/dL (0.2-1.0) Direct Bilirubin 17.7 mg/dL (0.0-0.2) Aspartate Amino Transf (AST/SGOT) 141 U/L (15-37) Alanine Aminotransferase (ALT/SGPT) 73 U/L (16-63) Alkaline Phosphatase 932 U/L (46-116) Troponin I Quantitative < 0.017 ng/mL (0.000-0.055) RZ-Cva-I-Type Natriuretic Peptide 695 pg/mL (0-124) Total Protein 5.7 g/dL (6.4-8.2) Albumin 1.9 g/dL (3.4-5.0) Lipase 213 U/L (73-393) Bedside Hemoglobin 16.3 g/dL (14-18) Bedside Hematocrit 48 % (37-52) Bedside Sodium 124 mmol/L (135-145) Bedside Potassium 3.9 mmol/L (3.5-5.0) Bedside Chloride 84 mmol/L (98-110) Bedside Total CO2 30 mmol/L (23-32) Bedside Blood Urea Nitrogen 26 mg/dL (8-26) Bedside Creatinine 0.9 mg/dL (0.5-1.4) Bedside Ionized Calcium (Deuce) 1.06 mmol/L (1.13-1.32) Urine Collection Type Unknown Urine Color [place] Urine Clarity Clear Urine pH 5.5 Urine Specific [place] 1.025 Urine Protein Negative mg/dL (NEG-TRACE) Urine Glucose (UA) Negative mg/dL (NEG) Urine Ketones (Stick) Trace mg/dL (NEG) Urine Blood Negative (NEG) Urine Nitrite Negative (NEG) Urine Bilirubin Large (NEG) Urine Urobilinogen Dipstick 0.2 mg/dL (0.2 mg/dL) Urine Leukocyte Esterase Small (NEG) Urine RBC 0 /HPF (0-2) Urine WBC Occ /HPF (0-4) Urine Squamous Epithelial Cells Occ /LPF Urine Bacteria Few /HPF (0-FEW) Urine Hyaline Casts Occasional /HPF Urine Granular Casts Occasional /HPF Urine Mucus Mod /LPF Laboratory Tests Test 08/19/16 11:00 08/19/16 11:07 08/19/16 11:15 White Blood Count 24.5 x10^3/uL (4.0-11.0) Red Blood Count 4.34 x10^6/uL (4.30-5.70) Hemoglobin 13.8 g/dL (13.0-17.5) Hematocrit 39.7 % (39.0-53.0) Mean Corpuscular Volume 92 fL (79-100) Mean Corpuscular Hemoglobin 32 pg (25-35) Mean Corpuscular Hemoglobin Concent 35 g/dL (31-37) Red Cell Distribution Width 20.6 % (11.5-14.5) Platelet Count 133 x10^3/uL (140-400) Neutrophils (%) (Auto) 92 % (31-73) Lymphocytes (%) (Auto) 1 % (24-48) Monocytes (%) (Auto) 7 % (0-9) Eosinophils (%) (Auto) 0 % (0-3) Basophils (%) (Auto) 0 % (0-3) Neutrophils # (Auto) 22.5 x10^3uL (1.8-7.7) Lymphocytes # (Auto) 0.3 x10^3/uL (1.0-4.8) Monocytes # (Auto) 1.6 x10^3/uL (0.0-1.1) Eosinophils # (Auto) 0.0 x10^3/uL (0.0-0.7) Basophils # (Auto) 0.1 x10^3/uL (0.0-0.2) Segmented Neutrophils % 86 % (35-66) Band Neutrophils % 9 % (0-9) Monocytes % 4 % (0-10) Eosinophils % 1 % (0-5) Platelet Estimate Adequate (ADEQUATE) Polychromasia Slight Anisocytosis Mod Target Cells Present Prothrombin Time 22.6 SEC (11.7-14.0) Prothromb Time International Ratio 2.1 (0.8-1.1) Sodium Level 124 mmol/L (136-145) Potassium Level 4.2 mmol/L (3.5-5.1) Chloride Level 86 mmol/L (98-107) Carbon Dioxide Level 30 mmol/L (21-32) Anion Gap 8 (6-14) 14 mmol/L (6-14) Blood Urea Nitrogen 24 mg/dL (8-26) Creatinine 0.8 mg/dL (0.7-1.3) Estimated GFR (Cockcroft-Gault) 94.5 Glucose Level 89 mg/dL (70-99) 94 mg/dL (70-99) Lactic Acid Level 2.0 mmol/L (0.4-2.0) Calcium Level 8.7 mg/dL (8.5-10.1) Magnesium Level 2.3 mg/dL (1.8-2.4) Total Bilirubin 23.0 mg/dL (0.2-1.0) Direct Bilirubin 17.7 mg/dL (0.0-0.2) Aspartate Amino Transf (AST/SGOT) 141 U/L (15-37) Alanine Aminotransferase (ALT/SGPT) 73 U/L (16-63) Alkaline Phosphatase 932 U/L (46-116) Troponin I Quantitative < 0.017 ng/mL (0.000-0.055) WZ-Adq-L-Type Natriuretic Peptide 695 pg/mL (0-124) Total Protein 5.7 g/dL (6.4-8.2) Albumin 1.9 g/dL (3.4-5.0) Lipase 213 U/L (73-393) Bedside Hemoglobin 16.3 g/dL (14-18) Bedside Hematocrit 48 % (37-52) Bedside Sodium 124 mmol/L (135-145) Bedside Potassium 3.9 mmol/L (3.5-5.0) Bedside Chloride 84 mmol/L (98-110) Bedside Total CO2 30 mmol/L (23-32) Bedside Blood Urea Nitrogen 26 mg/dL (8-26) Bedside Creatinine 0.9 mg/dL (0.5-1.4) Bedside Ionized Calcium (Deuce) 1.06 mmol/L (1.13-1.32) Urine Collection Type Unknown Urine Color [place] Urine Clarity Clear Urine pH 5.5 Urine Specific [place] 1.025 Urine Protein Negative mg/dL (NEG-TRACE) Urine Glucose (UA) Negative mg/dL (NEG) Urine Ketones (Stick) Trace mg/dL (NEG) Urine Blood Negative (NEG) Urine Nitrite Negative (NEG) Urine Bilirubin Large (NEG) Urine Urobilinogen Dipstick 0.2 mg/dL (0.2 mg/dL) Urine Leukocyte Esterase Small (NEG) Urine RBC 0 /HPF (0-2) Urine WBC Occ /HPF (0-4) Urine Squamous Epithelial Cells Occ /LPF Urine Bacteria Few /HPF (0-FEW) Urine Hyaline Casts Occasional /HPF Urine Granular Casts Occasional /HPF Urine Mucus Mod /LPF Assessment/Plan Assessment/Plan RESP DISTRESS SEC TO BILATERAL EFFUSION ANASARCA METS GASTRIC CA JAUNDICE HYPONATREMIA SEVERE PROTEIN MAL POA PLAN: RECOMMEND PALLIATIVE CARE NOT SOA AT THIS TIME WILL MONITOR MAY NEED A THORACENTESIS, ONLY PROBLEM FLUID WILL REACCUMULATE RAPIDLY SPOKE WITH DAUGHTER LANI BRAMBILA MD Aug 19, 2016 17:00
[2016-08-19] MEDS: LEVOTHYROXINE 50 MCG TABLET PO SCH (18:33)
[2016-08-19] MEDS: CHOLECALCIFEROL (VITAMIN D3) 1,000 UNIT TABLET PO SCH (18:33)
[2016-08-19] MEDS: ENOXAPARIN 40 MG/0.4 ML SYRINGE. SQ SCH (18:35)
[2016-08-19] MEDS: PIPERACILLIN/TAZOBACTAM 4.5 GM in IV NORMAL SALINE 100ML 100 ML IV SCH (18:59)
[2016-08-19 19:00] VITALS: BP 127/69
[2016-08-19] MEDS ORDERED: ONDA8TAB14 PO (19:03)
[2016-08-19] MEDS ORDERED: RANI150T2 PO (19:05)
[2016-08-19 23:00] VITALS: BP 121/63
[2016-08-20] MEDS: PIPERACILLIN/TAZOBACTAM 4.5 GM in IV NORMAL SALINE 100ML 100 ML IV SCH ×2 (00:38→06:18)
[2016-08-20 03:00] VITALS: BP 111/63
[2016-08-20 04:52] LABS: BASO % 0 % (0-3); EOS % 0 % (0-3); HEMATOCRIT 37.9 % (39.0-53.0); HEMOGLOBIN 12.7 g/dL (13.0-17.5); LYMPH # 0.6 x10^3/uL (1.0-4.8); LYMPH % 3 % (24-48); MEAN CORPUSCULAR HEMOGLOBIN 31 pg (25-35); MEAN CORPUSCULAR HGB CONC 34 g/dL (31-37); MEAN CORPUSCULAR VOLUME 93 fL (79-100); MONO % 8 % (0-9); NEUT % 89 % (31-73); PLATELET COUNT 114 x10^3/uL (140-400); RED BLOOD COUNT 4.08 x10^6/uL (4.30-5.70); RED CELL DISTRIBUTION WIDTH 20.1 % (11.5-14.5); WHITE BLOOD COUNT 18.1 x10^3/uL (4.0-11.0)
[2016-08-20 04:56] LABS: ALBUMIN 1.7 g/dL (3.4-5.0); ALBUMIN/GLOBULIN RATIO 0.5 (1.0-1.7); CALCIUM 7.9 mg/dL (8.5-10.1); CREATININE 0.9 mg/dL (0.7-1.3); GFR 82.5; POTASSIUM 3.5 mmol/L (3.5-5.1); TOTAL BILIRUBIN 20.5 mg/dL (0.2-1.0); TOTAL PROTEIN 5.3 g/dL (6.4-8.2)
[2016-08-20] MEDS: LEVOTHYROXINE 50 MCG TABLET PO SCH (06:18)
[2016-08-20 07:05] VITALS: BP 108/55
--- NOTE | 2016-08-20 08:44 | PDOC ---
Infectious Disease Note Subjective Subjective feeling better says ROS ROS GEN: Denies fevers, chills, sweats HEENT: Denies blurred vision, sore throat CV: Denies chest pain RESP: Denies shortness of air, cough GI: Denies n/v/d NEURO: Denies confusion, dizziness MSK: Denies weakness, joint pain/ Vital Sign Vital Signs Vital Signs Date Time Temp Pulse Resp B/P (MAP) Pulse Ox O2 Delivery O2 Flow Rate FiO2 08/20/16 07:05 98.0 77 18 108/55 (72) 89 Nasal Cannula 4.0 98.0 Physical Exam PHYSICAL EXAM GENERAL: NAD, Alert HEENT: PERRL, OC/OP NECK: Supple, no JVD, no LN LUNGS: Clear HEART: S1S2, no gallop, no murmur ABD: Soft, NT, no organomegaly, no rebound EXT: No edema, no cyanosis [employer]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, oriented x 3, no focal neurologic deficit SKIN: No rash,, anasarca IV: ok Labs Lab Laboratory Tests Test 08/19/16 11:00 08/19/16 11:07 08/19/16 11:15 08/20/16 03:30 White Blood Count 24.5 x10^3/uL (4.0-11.0) 18.1 x10^3/uL (4.0-11.0) Red Blood Count 4.34 x10^6/uL (4.30-5.70) 4.08 x10^6/uL (4.30-5.70) Hemoglobin 13.8 g/dL (13.0-17.5) 12.7 g/dL (13.0-17.5) Hematocrit 39.7 % (39.0-53.0) 37.9 % (39.0-53.0) Mean Corpuscular Volume 92 fL (79-100) 93 fL (79-100) Mean Corpuscular Hemoglobin 32 pg (25-35) 31 pg (25-35) Mean Corpuscular Hemoglobin Concent 35 g/dL (31-37) 34 g/dL (31-37) Red Cell Distribution Width 20.6 % (11.5-14.5) 20.1 % (11.5-14.5) Platelet Count 133 x10^3/uL (140-400) 114 x10^3/uL (140-400) Neutrophils (%) (Auto) 92 % (31-73) 89 % (31-73) Lymphocytes (%) (Auto) 1 % (24-48) 3 % (24-48) Monocytes (%) (Auto) 7 % (0-9) 8 % (0-9) Eosinophils (%) (Auto) 0 % (0-3) 0 % (0-3) Basophils (%) (Auto) 0 % (0-3) 0 % (0-3) Neutrophils # (Auto) 22.5 x10^3uL (1.8-7.7) 16.1 x10^3uL (1.8-7.7) Lymphocytes # (Auto) 0.3 x10^3/uL (1.0-4.8) 0.6 x10^3/uL (1.0-4.8) Monocytes # (Auto) 1.6 x10^3/uL (0.0-1.1) 1.4 x10^3/uL (0.0-1.1) Eosinophils # (Auto) 0.0 x10^3/uL (0.0-0.7) 0.0 x10^3/uL (0.0-0.7) Basophils # (Auto) 0.1 x10^3/uL (0.0-0.2) 0.0 x10^3/uL (0.0-0.2) Segmented Neutrophils % 86 % (35-66) Band Neutrophils % 9 % (0-9) Monocytes % 4 % (0-10) Eosinophils % 1 % (0-5) Platelet Estimate Adequate (ADEQUATE) Polychromasia Slight Anisocytosis Mod Target Cells Present Prothrombin Time 22.6 SEC (11.7-14.0) Prothromb Time International Ratio 2.1 (0.8-1.1) Sodium Level 124 mmol/L (136-145) 130 mmol/L (136-145) Potassium Level 4.2 mmol/L (3.5-5.1) 3.5 mmol/L (3.5-5.1) Chloride Level 86 mmol/L (98-107) 92 mmol/L (98-107) Carbon Dioxide Level 30 mmol/L (21-32) 27 mmol/L (21-32) Anion Gap 8 (6-14) 14 mmol/L (6-14) 11 (6-14) Blood Urea Nitrogen 24 mg/dL (8-26) 24 mg/dL (8-26) Creatinine 0.8 mg/dL (0.7-1.3) 0.9 mg/dL (0.7-1.3) Estimated GFR (Cockcroft-Gault) 94.5 82.5 Glucose Level 89 mg/dL (70-99) 94 mg/dL (70-99) 71 mg/dL (70-99) Lactic Acid Level 2.0 mmol/L (0.4-2.0) Calcium Level 8.7 mg/dL (8.5-10.1) 7.9 mg/dL (8.5-10.1) Magnesium Level 2.3 mg/dL (1.8-2.4) Total Bilirubin 23.0 mg/dL (0.2-1.0) 20.5 mg/dL (0.2-1.0) Direct Bilirubin 17.7 mg/dL (0.0-0.2) Aspartate Amino Transf (AST/SGOT) 141 U/L (15-37) 120 U/L (15-37) Alanine Aminotransferase (ALT/SGPT) 73 U/L (16-63) 64 U/L (16-63) Alkaline Phosphatase 932 U/L (46-116) 789 U/L (46-116) Troponin I Quantitative < 0.017 ng/mL (0.000-0.055) UJ-Mpa-X-Type Natriuretic Peptide 695 pg/mL (0-124) Total Protein 5.7 g/dL (6.4-8.2) 5.3 g/dL (6.4-8.2) Albumin 1.9 g/dL (3.4-5.0) 1.7 g/dL (3.4-5.0) Lipase 213 U/L (73-393) Bedside Hemoglobin 16.3 g/dL (14-18) Bedside Hematocrit 48 % (37-52) Bedside Sodium 124 mmol/L (135-145) Bedside Potassium 3.9 mmol/L (3.5-5.0) Bedside Chloride 84 mmol/L (98-110) Bedside Total CO2 30 mmol/L (23-32) Bedside Blood Urea Nitrogen 26 mg/dL (8-26) Bedside Creatinine 0.9 mg/dL (0.5-1.4) Bedside Ionized Calcium (Deuce) 1.06 mmol/L (1.13-1.32) Urine Collection Type Unknown Urine Color [place] Urine Clarity Clear Urine pH 5.5 Urine Specific Alpha 1.025 Urine Protein Negative mg/dL (NEG-TRACE) Urine Glucose (UA) Negative mg/dL (NEG) Urine Ketones (Stick) Trace mg/dL (NEG) Urine Blood Negative (NEG) Urine Nitrite Negative (NEG) Urine Bilirubin Large (NEG) Urine Urobilinogen Dipstick 0.2 mg/dL (0.2 mg/dL) Urine Leukocyte Esterase Small (NEG) Urine RBC 0 /HPF (0-2) Urine WBC Occ /HPF (0-4) Urine Squamous Epithelial Cells Occ /LPF Urine Bacteria Few /HPF (0-FEW) Urine Hyaline Casts Occasional /HPF Urine Granular Casts Occasional /HPF Urine Mucus Mod /LPF BUN/Creatinine Ratio 27 (6-20) Albumin/Globulin Ratio 0.5 (1.0-1.7) Objective Assessment Leukocytosis, chronic Metastatic Gastric ca on chemo Anasarca Liver failure with ascites Pleural effusion Plan Plan of Care d/c zosyn supportive care d/w daughter hospice in works BRANDI EVANS MD Aug 20, 2016 08:44
[2016-08-20] MEDS ORDERED: ATORVASTATIN CALCIUM 10 MG TABLET. PO SCH (09:00)
[2016-08-20] MEDS: CHOLECALCIFEROL (VITAMIN D3) 1,000 UNIT TABLET PO SCH (09:15)
[2016-08-20 11:08] VITALS: BP 113/52
--- NOTE | 2016-08-20 13:10 | PDOC ---
PROGRESS NOTES Chief Complaint Chief Complaint 1. ANasarca with low albumin 2. JAundice, icteric sclerae, acsietes 3. ELevated Total and DIrect Bilirubin 4. metastatic gastric Ca with liver mets ,on PAT CHEMO and XRT 5. Severe PCM with albumin 1.8 with 4 6. Extensive abdominal ascites with 4 7. Bilateral large pleural effusions 8. SIRS POA, no infection 9.hyponatremia 10. AOCD 11. LAnguage barrier, 12. DNR acute resp failure hypoxia with pleural effusion plan; fu with specialists. no abx IR consult for possible paracentesis, thoracentesis vitK today, INR tmr supportive care, need NC 5Lnow talked to daughter at bedside, DNR, but never know hospice or PAT, will get consult full liquid diet lasix 40mg po daily for now, might not help much tho poor prognosis History of Present Illness History of Present Illness slightly sob better, but need higher NC, 5L now Vitals Vitals Vital Signs Date Time Temp Pulse Resp B/P (MAP) Pulse Ox O2 Delivery O2 Flow Rate FiO2 08/20/16 11:08 98.3 76 20 113/52 (72) 91 Nasal Cannula 5.0 98.3 Physical Exam General: Alert Heart: Regular rate, Normal S1, Normal S2 Lungs: Other (bl decreased bs) Abdomen: Normal bowel sounds, Soft, Other (ASCITES) Extremities: No clubbing, No cyanosis, Other (2 EDEMA) Skin: No rashes, Other Labs LABS Laboratory Tests Test 08/20/16 03:30 White Blood Count 18.1 x10^3/uL (4.0-11.0) Red Blood Count 4.08 x10^6/uL (4.30-5.70) Hemoglobin 12.7 g/dL (13.0-17.5) Hematocrit 37.9 % (39.0-53.0) Mean Corpuscular Volume 93 fL (79-100) Mean Corpuscular Hemoglobin 31 pg (25-35) Mean Corpuscular Hemoglobin Concent 34 g/dL (31-37) Red Cell Distribution Width 20.1 % (11.5-14.5) Platelet Count 114 x10^3/uL (140-400) Neutrophils (%) (Auto) 89 % (31-73) Lymphocytes (%) (Auto) 3 % (24-48) Monocytes (%) (Auto) 8 % (0-9) Eosinophils (%) (Auto) 0 % (0-3) Basophils (%) (Auto) 0 % (0-3) Neutrophils # (Auto) 16.1 x10^3uL (1.8-7.7) Lymphocytes # (Auto) 0.6 x10^3/uL (1.0-4.8) Monocytes # (Auto) 1.4 x10^3/uL (0.0-1.1) Eosinophils # (Auto) 0.0 x10^3/uL (0.0-0.7) Basophils # (Auto) 0.0 x10^3/uL (0.0-0.2) Sodium Level 130 mmol/L (136-145) Potassium Level 3.5 mmol/L (3.5-5.1) Chloride Level 92 mmol/L (98-107) Carbon Dioxide Level 27 mmol/L (21-32) Anion Gap 11 (6-14) Blood Urea Nitrogen 24 mg/dL (8-26) Creatinine 0.9 mg/dL (0.7-1.3) Estimated GFR (Cockcroft-Gault) 82.5 BUN/Creatinine Ratio 27 (6-20) Glucose Level 71 mg/dL (70-99) Calcium Level 7.9 mg/dL (8.5-10.1) Total Bilirubin 20.5 mg/dL (0.2-1.0) Aspartate Amino Transf (AST/SGOT) 120 U/L (15-37) Alanine Aminotransferase (ALT/SGPT) 64 U/L (16-63) Alkaline Phosphatase 789 U/L (46-116) Total Protein 5.3 g/dL (6.4-8.2) Albumin 1.7 g/dL (3.4-5.0) Albumin/Globulin Ratio 0.5 (1.0-1.7) Review of Systems Review of Systems no fever, chills, chest pain Assessment and Plan Assessmemt and Plan Problems Medical Problems: (1) Sepsis Status: Acute Problems: Comment Review of Relevant I have reviewed the following items meagan (where applicable) has been applied. Labs Laboratory Tests Test 08/19/16 11:00 08/19/16 11:07 08/19/16 11:15 08/20/16 03:30 White Blood Count 24.5 x10^3/uL (4.0-11.0) 18.1 x10^3/uL (4.0-11.0) Red Blood Count 4.34 x10^6/uL (4.30-5.70) 4.08 x10^6/uL (4.30-5.70) Hemoglobin 13.8 g/dL (13.0-17.5) 12.7 g/dL (13.0-17.5) Hematocrit 39.7 % (39.0-53.0) 37.9 % (39.0-53.0) Mean Corpuscular Volume 92 fL (79-100) 93 fL (79-100) Mean Corpuscular Hemoglobin 32 pg (25-35) 31 pg (25-35) Mean Corpuscular Hemoglobin Concent 35 g/dL (31-37) 34 g/dL (31-37) Red Cell Distribution Width 20.6 % (11.5-14.5) 20.1 % (11.5-14.5) Platelet Count 133 x10^3/uL (140-400) 114 x10^3/uL (140-400) Neutrophils (%) (Auto) 92 % (31-73) 89 % (31-73) Lymphocytes (%) (Auto) 1 % (24-48) 3 % (24-48) Monocytes (%) (Auto) 7 % (0-9) 8 % (0-9) Eosinophils (%) (Auto) 0 % (0-3) 0 % (0-3) Basophils (%) (Auto) 0 % (0-3) 0 % (0-3) Neutrophils # (Auto) 22.5 x10^3uL (1.8-7.7) 16.1 x10^3uL (1.8-7.7) Lymphocytes # (Auto) 0.3 x10^3/uL (1.0-4.8) 0.6 x10^3/uL (1.0-4.8) Monocytes # (Auto) 1.6 x10^3/uL (0.0-1.1) 1.4 x10^3/uL (0.0-1.1) Eosinophils # (Auto) 0.0 x10^3/uL (0.0-0.7) 0.0 x10^3/uL (0.0-0.7) Basophils # (Auto) 0.1 x10^3/uL (0.0-0.2) 0.0 x10^3/uL (0.0-0.2) Segmented Neutrophils % 86 % (35-66) Band Neutrophils % 9 % (0-9) Monocytes % 4 % (0-10) Eosinophils % 1 % (0-5) Platelet Estimate Adequate (ADEQUATE) Polychromasia Slight Anisocytosis Mod Target Cells Present Prothrombin Time 22.6 SEC (11.7-14.0) Prothromb Time International Ratio 2.1 (0.8-1.1) Sodium Level 124 mmol/L (136-145) 130 mmol/L (136-145) Potassium Level 4.2 mmol/L (3.5-5.1) 3.5 mmol/L (3.5-5.1) Chloride Level 86 mmol/L (98-107) 92 mmol/L (98-107) Carbon Dioxide Level 30 mmol/L (21-32) 27 mmol/L (21-32) Anion Gap 8 (6-14) 14 mmol/L (6-14) 11 (6-14) Blood Urea Nitrogen 24 mg/dL (8-26) 24 mg/dL (8-26) Creatinine 0.8 mg/dL (0.7-1.3) 0.9 mg/dL (0.7-1.3) Estimated GFR (Cockcroft-Gault) 94.5 82.5 Glucose Level 89 mg/dL (70-99) 94 mg/dL (70-99) 71 mg/dL (70-99) Lactic Acid Level 2.0 mmol/L (0.4-2.0) Calcium Level 8.7 mg/dL (8.5-10.1) 7.9 mg/dL (8.5-10.1) Magnesium Level 2.3 mg/dL (1.8-2.4) Total Bilirubin 23.0 mg/dL (0.2-1.0) 20.5 mg/dL (0.2-1.0) Direct Bilirubin 17.7 mg/dL (0.0-0.2) Aspartate Amino Transf (AST/SGOT) 141 U/L (15-37) 120 U/L (15-37) Alanine Aminotransferase (ALT/SGPT) 73 U/L (16-63) 64 U/L (16-63) Alkaline Phosphatase 932 U/L (46-116) 789 U/L (46-116) Troponin I Quantitative < 0.017 ng/mL (0.000-0.055) QE-Fbp-J-Type Natriuretic Peptide 695 pg/mL (0-124) Total Protein 5.7 g/dL (6.4-8.2) 5.3 g/dL (6.4-8.2) Albumin 1.9 g/dL (3.4-5.0) 1.7 g/dL (3.4-5.0) Lipase 213 U/L (73-393) Bedside Hemoglobin 16.3 g/dL (14-18) Bedside Hematocrit 48 % (37-52) Bedside Sodium 124 mmol/L (135-145) Bedside Potassium 3.9 mmol/L (3.5-5.0) Bedside Chloride 84 mmol/L (98-110) Bedside Total CO2 30 mmol/L (23-32) Bedside Blood Urea Nitrogen 26 mg/dL (8-26) Bedside Creatinine 0.9 mg/dL (0.5-1.4) Bedside Ionized Calcium (Deuce) 1.06 mmol/L (1.13-1.32) Urine Collection Type Unknown Urine Color [place] Urine Clarity Clear Urine pH 5.5 Urine Specific [place] 1.025 Urine Protein Negative mg/dL (NEG-TRACE) Urine Glucose (UA) Negative mg/dL (NEG) Urine Ketones (Stick) Trace mg/dL (NEG) Urine Blood Negative (NEG) Urine Nitrite Negative (NEG) Urine Bilirubin Large (NEG) Urine Urobilinogen Dipstick 0.2 mg/dL (0.2 mg/dL) Urine Leukocyte Esterase Small (NEG) Urine RBC 0 /HPF (0-2) Urine WBC Occ /HPF (0-4) Urine Squamous Epithelial Cells Occ /LPF Urine Bacteria Few /HPF (0-FEW) Urine Hyaline Casts Occasional /HPF Urine Granular Casts Occasional /HPF Urine Mucus Mod /LPF BUN/Creatinine Ratio 27 (6-20) Albumin/Globulin Ratio 0.5 (1.0-1.7) Laboratory Tests Test 08/20/16 03:30 White Blood Count 18.1 x10^3/uL (4.0-11.0) Red Blood Count 4.08 x10^6/uL (4.30-5.70) Hemoglobin 12.7 g/dL (13.0-17.5) Hematocrit 37.9 % (39.0-53.0) Mean Corpuscular Volume 93 fL (79-100) Mean Corpuscular Hemoglobin 31 pg (25-35) Mean Corpuscular Hemoglobin Concent 34 g/dL (31-37) Red Cell Distribution Width 20.1 % (11.5-14.5) Platelet Count 114 x10^3/uL (140-400) Neutrophils (%) (Auto) 89 % (31-73) Lymphocytes (%) (Auto) 3 % (24-48) Monocytes (%) (Auto) 8 % (0-9) Eosinophils (%) (Auto) 0 % (0-3) Basophils (%) (Auto) 0 % (0-3) Neutrophils # (Auto) 16.1 x10^3uL (1.8-7.7) Lymphocytes # (Auto) 0.6 x10^3/uL (1.0-4.8) Monocytes # (Auto) 1.4 x10^3/uL (0.0-1.1) Eosinophils # (Auto) 0.0 x10^3/uL (0.0-0.7) Basophils # (Auto) 0.0 x10^3/uL (0.0-0.2) Sodium Level 130 mmol/L (136-145) Potassium Level 3.5 mmol/L (3.5-5.1) Chloride Level 92 mmol/L (98-107) Carbon Dioxide Level 27 mmol/L (21-32) Anion Gap 11 (6-14) Blood Urea Nitrogen 24 mg/dL (8-26) Creatinine 0.9 mg/dL (0.7-1.3) Estimated GFR (Cockcroft-Gault) 82.5 BUN/Creatinine Ratio 27 (6-20) Glucose Level 71 mg/dL (70-99) Calcium Level 7.9 mg/dL (8.5-10.1) Total Bilirubin 20.5 mg/dL (0.2-1.0) Aspartate Amino Transf (AST/SGOT) 120 U/L (15-37) Alanine Aminotransferase (ALT/SGPT) 64 U/L (16-63) Alkaline Phosphatase 789 U/L (46-116) Total Protein 5.3 g/dL (6.4-8.2) Albumin 1.7 g/dL (3.4-5.0) Albumin/Globulin Ratio 0.5 (1.0-1.7) Microbiology 08/19/16 Blood Culture - Preliminary, Resulted NO GROWTH AFTER 1 DAY Medications Current Medications Sodium Chloride 500 ml @ 500 mls/hr 1X ONCE IV Last administered on 08/19/16 11:59; Start 08/19/16 at 11:45; Stop 08/19/16 at 12:44; Status DC Piperacillin Sod/ Tazobactam Sod (Zosyn Per Pharmacy) 1 each PRN DAILY PRN MC SEE COMMENTS; Start 08/19/16 at 11:45; Stop 08/20/16 at 09:09; Status DC Vancomycin HCl (Vanco Per Pharmacy) 1 each PRN DAILY PRN MC SEE COMMENTS; Start 08/19/16 at 11:45; Stop 08/19/16 at 14:44; Status DC Vancomycin HCl 1.25 gm/Sodium Chloride 250 ml @ 166.667 mls/hr 1X ONCE IV Last administered on 08/19/16 15:14; Start 08/19/16 at 12:00; Stop 08/19/16 at 13: 29; Status DC Piperacillin Sod/ Tazobactam Sod 3.375 gm/Sodium Chloride 50 ml @ 100 mls/hr ONCE ONCE IV Last administered on 08/19/16 11:58; Start 08/19/16 at 11:45; Stop 08/19/16 at 12:14; Status DC Iohexol (Omnipaque 300 Mg/ml) 75 ml 1X ONCE IV Last administered on 08/19/16 12:03; Start 08/19/16 at 12:00; Stop 08/19/16 at 12:01; Status DC Info (Do NOT chart on this entry -- for MONITORING) 1 each PRN DAILY PRN MC SEE COMMENTS; Start 08/19/16 at 12:15; Stop 08/21/16 at 12:14 Ondansetron HCl (Zofran) 4 mg PRN Q8HRS PRN IV NAUSEA/VOMITING; Start 08/19/16 at 12:15; Stop 08/19/16 at 13:26; Status DC Fentanyl Citrate (Fentanyl 2ml Vial) 50 mcg PRN Q1HR PRN IV PAIN; Start at 12:15; Stop 08/20/16 at 12:14; Status DC Sodium Chloride 1,000 ml @ 1,000 mls/hr 1X ONCE IV Last administered on 15:14; Start 08/19/16 at 12:45; Stop 08/19/16 at 13:44; Status DC Ondansetron HCl (Zofran) 4 mg PRN Q6HRS PRN IV NAUSEA/VOMITING 1ST CHOICE; Start 08/19/16 at 13:23; Stop 08/20/16 at 13:22 Fentanyl Citrate (Fentanyl 2ml Vial) 50 mcg PRN Q2HR PRN IV PAIN SEVERE; Start 08/19/16 at 13:30 Atorvastatin Calcium (Lipitor) 10 mg DAILY PO ; Start 08/20/16 at 09:00; Status UNV Vitamin D (Vitamin D3) 1,000 unit DAILY PO Last administered on 08/20/16 09:15 ; Start 08/19/16 at 14:00 Levothyroxine Sodium (Synthroid) 50 mcg DAILY07 PO Last administered on 06:18; Start 08/19/16 at 14:00 Furosemide (Lasix) 60 mg 1X ONCE IVP Last administered on 08/19/16 18:33; Start 08/19/16 at 14:30; Stop 08/19/16 at 14:31; Status DC Enoxaparin Sodium (Lovenox 40mg Syringe) 40 mg Q24H SQ Last administered on 08/19 18:35; Start 08/19/16 at 15:00 Piperacillin Sod/ Tazobactam Sod 4.5 gm/Sodium Chloride 100 ml @ 200 mls/hr Q6HRS IV Last administered on 08/20/16 06:18; Start 08/19/16 at 18:00; Stop 08/20 at 09:09; Status DC Active Scripts Active Reported Ranitidine Hcl 150 Mg Tablet 150 Mg PO BID Ondansetron Hcl 8 Mg Tablet 8 Mg PO BID PRN Vitamin D3 (Cholecalciferol (Vitamin D3)) 1,000 Unit Tablet 1,000 Unit PO DAILY Levothyroxine Sodium 50 Mcg Tablet 75 Mcg PO DAILY Vitals/I & O Vital Sign - Last 24 Hours 08/19/16 08/19/16 08/19/16 08/19/16 15:00 19:00 19:42 20:00 Temp 97.4 97.7 97.4 97.7 Pulse 76 84 Resp 20 20 B/P (MAP) 136/75 (95) 127/69 (88) Pulse Ox 91 88 90 O2 Delivery Nasal Cannula Nasal Cannula Nasal Cannula Nasal Cannula O2 Flow Rate 4.0 4.0 4.0 4.0 08/19/16 08/20/16 08/20/16 08/20/16 23:00 03:00 07:05 08:00 Temp 97.9 98.0 98.0 97.9 98.0 98.0 Pulse 83 81 77 Resp 17 18 B/P (MAP) 121/63 (82) 111/63 (79) 108/55 (72) Pulse Ox 92 91 89 O2 Delivery Nasal Cannula Nasal Cannula Nasal Cannula Nasal Cannula O2 Flow Rate 4.0 4.0 4.0 4.0 08/20/16 11:08 Temp 98.3 98.3 Pulse 76 Resp 20 B/P (MAP) 113/52 (72) Pulse Ox 91 O2 Delivery Nasal Cannula O2 Flow Rate 5.0 Intake and Output 08/19/16 08/19/16 08/20/16 15:00 23:00 07:00 Intake Total 200 ml 100 ml Balance 200 ml 100 ml SHAYNE GOMEZ MD Aug 20, 2016 13:10
[2016-08-20] MEDS ORDERED: traMADol 50 MG TABLET PO PRN (13:15)
[2016-08-20] MEDS ORDERED: ONDANSETRON PF 4 MG/2 ML VIAL. IV PRN (13:15)
[2016-08-20] MEDS ORDERED: DOCUSATE SODIUM 100 MG CAPSULE. PO PRN (13:15)
[2016-08-20] MEDS ORDERED: ACETAMINOPHEN 325 MG TABLET. PO PRN (13:15)
[2016-08-20] MEDS ORDERED: hydrALAZINE 20 MG/ML VIAL. IVP PRN (13:15)
[2016-08-20] MEDS ORDERED: MORPHINE SULFATE 2 MG/ML DISP.SYRIN. IV PRN (13:15)
[2016-08-20] MEDS ORDERED: PHYTONADIONE 10 MG/ML AMPUL. SQ ONE (13:45)
[2016-08-20] MEDS: FUROSEMIDE 40 MG TABLET. PO SCH (14:23)
[2016-08-20] MEDS: ENOXAPARIN 40 MG/0.4 ML SYRINGE. SQ SCH (14:24)
[2016-08-20 15:05] VITALS: BP 115/66
--- NOTE | 2016-08-20 18:59 | PDOC ---
PULMONARY PROGRESS NOTES Subjective PT NOT MORE SOA NO KNIGHT PER DAUGHTER Vitals Vital Signs Date Time Temp Pulse Resp B/P (MAP) Pulse Ox O2 Delivery O2 Flow Rate FiO2 08/20/16 15:05 98.1 82 18 115/66 (82) 94 Nasal Cannula 5.0 98.1 ROS: No Nausea, No Chest Pain, No Abdominal Pain, No Increase Cough Lungs: Other (bl decreased bs) Cardiovascular: S1, S2 Abdomen: Soft Neuro Exam: Alert Skin: Warm Labs Laboratory Tests Test 08/19/16 11:00 08/19/16 11:07 08/19/16 11:15 08/20/16 03:30 White Blood Count 24.5 x10^3/uL (4.0-11.0) 18.1 x10^3/uL (4.0-11.0) Red Blood Count 4.34 x10^6/uL (4.30-5.70) 4.08 x10^6/uL (4.30-5.70) Hemoglobin 13.8 g/dL (13.0-17.5) 12.7 g/dL (13.0-17.5) Hematocrit 39.7 % (39.0-53.0) 37.9 % (39.0-53.0) Mean Corpuscular Volume 92 fL (79-100) 93 fL (79-100) Mean Corpuscular Hemoglobin 32 pg (25-35) 31 pg (25-35) Mean Corpuscular Hemoglobin Concent 35 g/dL (31-37) 34 g/dL (31-37) Red Cell Distribution Width 20.6 % (11.5-14.5) 20.1 % (11.5-14.5) Platelet Count 133 x10^3/uL (140-400) 114 x10^3/uL (140-400) Neutrophils (%) (Auto) 92 % (31-73) 89 % (31-73) Lymphocytes (%) (Auto) 1 % (24-48) 3 % (24-48) Monocytes (%) (Auto) 7 % (0-9) 8 % (0-9) Eosinophils (%) (Auto) 0 % (0-3) 0 % (0-3) Basophils (%) (Auto) 0 % (0-3) 0 % (0-3) Neutrophils # (Auto) 22.5 x10^3uL (1.8-7.7) 16.1 x10^3uL (1.8-7.7) Lymphocytes # (Auto) 0.3 x10^3/uL (1.0-4.8) 0.6 x10^3/uL (1.0-4.8) Monocytes # (Auto) 1.6 x10^3/uL (0.0-1.1) 1.4 x10^3/uL (0.0-1.1) Eosinophils # (Auto) 0.0 x10^3/uL (0.0-0.7) 0.0 x10^3/uL (0.0-0.7) Basophils # (Auto) 0.1 x10^3/uL (0.0-0.2) 0.0 x10^3/uL (0.0-0.2) Segmented Neutrophils % 86 % (35-66) Band Neutrophils % 9 % (0-9) Monocytes % 4 % (0-10) Eosinophils % 1 % (0-5) Platelet Estimate Adequate (ADEQUATE) Polychromasia Slight Anisocytosis Mod Target Cells Present Prothrombin Time 22.6 SEC (11.7-14.0) Prothromb Time International Ratio 2.1 (0.8-1.1) Sodium Level 124 mmol/L (136-145) 130 mmol/L (136-145) Potassium Level 4.2 mmol/L (3.5-5.1) 3.5 mmol/L (3.5-5.1) Chloride Level 86 mmol/L (98-107) 92 mmol/L (98-107) Carbon Dioxide Level 30 mmol/L (21-32) 27 mmol/L (21-32) Anion Gap 8 (6-14) 14 mmol/L (6-14) 11 (6-14) Blood Urea Nitrogen 24 mg/dL (8-26) 24 mg/dL (8-26) Creatinine 0.8 mg/dL (0.7-1.3) 0.9 mg/dL (0.7-1.3) Estimated GFR (Cockcroft-Gault) 94.5 82.5 Glucose Level 89 mg/dL (70-99) 94 mg/dL (70-99) 71 mg/dL (70-99) Lactic Acid Level 2.0 mmol/L (0.4-2.0) Calcium Level 8.7 mg/dL (8.5-10.1) 7.9 mg/dL (8.5-10.1) Magnesium Level 2.3 mg/dL (1.8-2.4) Total Bilirubin 23.0 mg/dL (0.2-1.0) 20.5 mg/dL (0.2-1.0) Direct Bilirubin 17.7 mg/dL (0.0-0.2) Aspartate Amino Transf (AST/SGOT) 141 U/L (15-37) 120 U/L (15-37) Alanine Aminotransferase (ALT/SGPT) 73 U/L (16-63) 64 U/L (16-63) Alkaline Phosphatase 932 U/L (46-116) 789 U/L (46-116) Troponin I Quantitative < 0.017 ng/mL (0.000-0.055) XP-Dow-X-Type Natriuretic Peptide 695 pg/mL (0-124) Total Protein 5.7 g/dL (6.4-8.2) 5.3 g/dL (6.4-8.2) Albumin 1.9 g/dL (3.4-5.0) 1.7 g/dL (3.4-5.0) Lipase 213 U/L (73-393) Bedside Hemoglobin 16.3 g/dL (14-18) Bedside Hematocrit 48 % (37-52) Bedside Sodium 124 mmol/L (135-145) Bedside Potassium 3.9 mmol/L (3.5-5.0) Bedside Chloride 84 mmol/L (98-110) Bedside Total CO2 30 mmol/L (23-32) Bedside Blood Urea Nitrogen 26 mg/dL (8-26) Bedside Creatinine 0.9 mg/dL (0.5-1.4) Bedside Ionized Calcium (Deuce) 1.06 mmol/L (1.13-1.32) Urine Collection Type Unknown Urine Color [place] Urine Clarity Clear Urine pH 5.5 Urine Specific [place] 1.025 Urine Protein Negative mg/dL (NEG-TRACE) Urine Glucose (UA) Negative mg/dL (NEG) Urine Ketones (Stick) Trace mg/dL (NEG) Urine Blood Negative (NEG) Urine Nitrite Negative (NEG) Urine Bilirubin Large (NEG) Urine Urobilinogen Dipstick 0.2 mg/dL (0.2 mg/dL) Urine Leukocyte Esterase Small (NEG) Urine RBC 0 /HPF (0-2) Urine WBC Occ /HPF (0-4) Urine Squamous Epithelial Cells Occ /LPF Urine Bacteria Few /HPF (0-FEW) Urine Hyaline Casts Occasional /HPF Urine Granular Casts Occasional /HPF Urine Mucus Mod /LPF BUN/Creatinine Ratio 27 (6-20) Albumin/Globulin Ratio 0.5 (1.0-1.7) Laboratory Tests Test 08/20/16 03:30 White Blood Count 18.1 x10^3/uL (4.0-11.0) Red Blood Count 4.08 x10^6/uL (4.30-5.70) Hemoglobin 12.7 g/dL (13.0-17.5) Hematocrit 37.9 % (39.0-53.0) Mean Corpuscular Volume 93 fL (79-100) Mean Corpuscular Hemoglobin 31 pg (25-35) Mean Corpuscular Hemoglobin Concent 34 g/dL (31-37) Red Cell Distribution Width 20.1 % (11.5-14.5) Platelet Count 114 x10^3/uL (140-400) Neutrophils (%) (Auto) 89 % (31-73) Lymphocytes (%) (Auto) 3 % (24-48) Monocytes (%) (Auto) 8 % (0-9) Eosinophils (%) (Auto) 0 % (0-3) Basophils (%) (Auto) 0 % (0-3) Neutrophils # (Auto) 16.1 x10^3uL (1.8-7.7) Lymphocytes # (Auto) 0.6 x10^3/uL (1.0-4.8) Monocytes # (Auto) 1.4 x10^3/uL (0.0-1.1) Eosinophils # (Auto) 0.0 x10^3/uL (0.0-0.7) Basophils # (Auto) 0.0 x10^3/uL (0.0-0.2) Sodium Level 130 mmol/L (136-145) Potassium Level 3.5 mmol/L (3.5-5.1) Chloride Level 92 mmol/L (98-107) Carbon Dioxide Level 27 mmol/L (21-32) Anion Gap 11 (6-14) Blood Urea Nitrogen 24 mg/dL (8-26) Creatinine 0.9 mg/dL (0.7-1.3) Estimated GFR (Cockcroft-Gault) 82.5 BUN/Creatinine Ratio 27 (6-20) Glucose Level 71 mg/dL (70-99) Calcium Level 7.9 mg/dL (8.5-10.1) Total Bilirubin 20.5 mg/dL (0.2-1.0) Aspartate Amino Transf (AST/SGOT) 120 U/L (15-37) Alanine Aminotransferase (ALT/SGPT) 64 U/L (16-63) Alkaline Phosphatase 789 U/L (46-116) Total Protein 5.3 g/dL (6.4-8.2) Albumin 1.7 g/dL (3.4-5.0) Albumin/Globulin Ratio 0.5 (1.0-1.7) Medications Active Scripts Medications Dose Route/Sig Max Daily Dose Days Date Category Ranitidine Hcl 150 Mg Tablet 150 Mg PO BID 08/19/16 Reported Ondansetron Hcl 8 Mg Tablet 8 Mg PO BID PRN 08/19/16 Reported Vitamin D3 (Cholecalciferol (Vitamin D3)) 1,000 Unit Tablet 1,000 Unit PO DAILY 02/06/15 Reported Levothyroxine Sodium 50 Mcg Tablet 75 Mcg PO DAILY 02/06/15 Reported Impression . RESP DISTRESS SEC TO BILATERAL EFFUSION ANASARCA METS GASTRIC CA JAUNDICE HYPONATREMIA SEVERE PROTEIN MAL POA Plan . WILL D/W MISHEL GOODSON NO NEED FOR THORACENTESIS AT THIS TIME RECOMMEND PALLIATIVE CARE NOT SOA AT THIS TIME WILL MONITOR MAY NEED A THORACENTESIS, ONLY PROBLEM FLUID WILL REACCUMULATE RAPIDLY SPOKE WITH DAUGHTER LANI BRAMBILA MD Aug 20, 2016 18:59
[2016-08-20 19:00] VITALS: BP 113/67
[2016-08-20 23:00] VITALS: BP 124/78
[2016-08-21 03:13] VITALS: BP 119/72
[2016-08-21] MEDS: LEVOTHYROXINE 50 MCG TABLET PO SCH (06:01)
[2016-08-21 07:01] LABS: BASO % 0 % (0-3); EOS % 1 % (0-3); HEMATOCRIT 37.9 % (39.0-53.0); HEMOGLOBIN 12.5 g/dL (13.0-17.5); LYMPH % 9 % (24-48); MEAN CORPUSCULAR HEMOGLOBIN 31 pg (25-35); MEAN CORPUSCULAR HGB CONC 33 g/dL (31-37); MEAN CORPUSCULAR VOLUME 93 fL (79-100); MONO % 11 % (0-9); NEUT % 80 % (31-73); PLATELET COUNT 123 x10^3/uL (140-400); RED BLOOD COUNT 4.06 x10^6/uL (4.30-5.70); RED CELL DISTRIBUTION WIDTH 20.4 % (11.5-14.5); WHITE BLOOD COUNT 11.6 x10^3/uL (4.0-11.0)
[2016-08-21 07:06] LABS: INR 1.5 (0.8-1.1); PROTHROMBIN TIME PATIENT 17.2 SEC (11.7-14.0)
[2016-08-21 07:07] LABS: CALCIUM 8.3 mg/dL (8.5-10.1); CREATININE 1.1 mg/dL (0.7-1.3); GFR 65.4; POTASSIUM 3.4 mmol/L (3.5-5.1)
[2016-08-21 07:25] VITALS: BP 144/60
--- NOTE | 2016-08-21 07:29 | PDOC ---
PROGRESS NOTES Chief Complaint Chief Complaint 1. Anasarca with low albumin 2. Jaundice, icteric sclerae, acsietes 3. Elevated Total and Direct Bilirubin 4. Metastatic gastric Ca with liver mets ,on PAT CHEMO and XRT 5. Severe PCM with albumin 1.8 with 4 6. Extensive abdominal ascites with 4 7. Bilateral large pleural effusions 8. SIRS POA, no infection 9. hyponatremia 10. AOCD 11. DNR 12. acute respiratory failure hypoxia with pleural effusion Plan iv lasix now d/w daughter at bedside. Palliative care consult pending. continue supportive care for now DNR continue current care. Poor prognosis and performance state Do not recommend thoracentesis. History of Present Illness History of Present Illness no fever no chills no acute events Vitals Vitals Vital Signs Date Time Temp Pulse Resp B/P (MAP) Pulse Ox O2 Delivery O2 Flow Rate FiO2 08/21/16 03:13 98.3 70 20 119/72 (88) 94 Nasal Cannula 4.0 98.3 Physical Exam General: Alert Heart: Regular rate, Normal S1, Normal S2 Lungs: Other (bl decreased bs) Abdomen: Normal bowel sounds, Soft, Other (ASCITES) Extremities: No clubbing, No cyanosis, Other (2 EDEMA) Skin: No rashes, Other Labs LABS Laboratory Tests Test 08/21/16 06:15 Prothrombin Time 17.2 SEC (11.7-14.0) Prothromb Time International Ratio 1.5 (0.8-1.1) Sodium Level 128 mmol/L (136-145) Potassium Level 3.4 mmol/L (3.5-5.1) Chloride Level 91 mmol/L (98-107) Carbon Dioxide Level 27 mmol/L (21-32) Anion Gap 10 (6-14) Blood Urea Nitrogen 28 mg/dL (8-26) Creatinine 1.1 mg/dL (0.7-1.3) Estimated GFR (Cockcroft-Gault) 65.4 Glucose Level 91 mg/dL (70-99) Calcium Level 8.3 mg/dL (8.5-10.1) Assessment and Plan Assessmemt and Plan Problems Medical Problems: (1) Sepsis Status: Acute Problems: Comment Review of Relevant I have reviewed the following items meagan (where applicable) has been applied. Labs Laboratory Tests Test 08/19/16 11:00 08/19/16 11:07 08/19/16 11:15 08/20/16 03:30 White Blood Count 24.5 x10^3/uL (4.0-11.0) 18.1 x10^3/uL (4.0-11.0) Red Blood Count 4.34 x10^6/uL (4.30-5.70) 4.08 x10^6/uL (4.30-5.70) Hemoglobin 13.8 g/dL (13.0-17.5) 12.7 g/dL (13.0-17.5) Hematocrit 39.7 % (39.0-53.0) 37.9 % (39.0-53.0) Mean Corpuscular Volume 92 fL (79-100) 93 fL (79-100) Mean Corpuscular Hemoglobin 32 pg (25-35) 31 pg (25-35) Mean Corpuscular Hemoglobin Concent 35 g/dL (31-37) 34 g/dL (31-37) Red Cell Distribution Width 20.6 % (11.5-14.5) 20.1 % (11.5-14.5) Platelet Count 133 x10^3/uL (140-400) 114 x10^3/uL (140-400) Neutrophils (%) (Auto) 92 % (31-73) 89 % (31-73) Lymphocytes (%) (Auto) 1 % (24-48) 3 % (24-48) Monocytes (%) (Auto) 7 % (0-9) 8 % (0-9) Eosinophils (%) (Auto) 0 % (0-3) 0 % (0-3) Basophils (%) (Auto) 0 % (0-3) 0 % (0-3) Neutrophils # (Auto) 22.5 x10^3uL (1.8-7.7) 16.1 x10^3uL (1.8-7.7) Lymphocytes # (Auto) 0.3 x10^3/uL (1.0-4.8) 0.6 x10^3/uL (1.0-4.8) Monocytes # (Auto) 1.6 x10^3/uL (0.0-1.1) 1.4 x10^3/uL (0.0-1.1) Eosinophils # (Auto) 0.0 x10^3/uL (0.0-0.7) 0.0 x10^3/uL (0.0-0.7) Basophils # (Auto) 0.1 x10^3/uL (0.0-0.2) 0.0 x10^3/uL (0.0-0.2) Segmented Neutrophils % 86 % (35-66) Band Neutrophils % 9 % (0-9) Monocytes % 4 % (0-10) Eosinophils % 1 % (0-5) Platelet Estimate Adequate (ADEQUATE) Polychromasia Slight Anisocytosis Mod Target Cells Present Prothrombin Time 22.6 SEC (11.7-14.0) Prothromb Time International Ratio 2.1 (0.8-1.1) Sodium Level 124 mmol/L (136-145) 130 mmol/L (136-145) Potassium Level 4.2 mmol/L (3.5-5.1) 3.5 mmol/L (3.5-5.1) Chloride Level 86 mmol/L (98-107) 92 mmol/L (98-107) Carbon Dioxide Level 30 mmol/L (21-32) 27 mmol/L (21-32) Anion Gap 8 (6-14) 14 mmol/L (6-14) 11 (6-14) Blood Urea Nitrogen 24 mg/dL (8-26) 24 mg/dL (8-26) Creatinine 0.8 mg/dL (0.7-1.3) 0.9 mg/dL (0.7-1.3) Estimated GFR (Cockcroft-Gault) 94.5 82.5 Glucose Level 89 mg/dL (70-99) 94 mg/dL (70-99) 71 mg/dL (70-99) Lactic Acid Level 2.0 mmol/L (0.4-2.0) Calcium Level 8.7 mg/dL (8.5-10.1) 7.9 mg/dL (8.5-10.1) Magnesium Level 2.3 mg/dL (1.8-2.4) Total Bilirubin 23.0 mg/dL (0.2-1.0) 20.5 mg/dL (0.2-1.0) Direct Bilirubin 17.7 mg/dL (0.0-0.2) Aspartate Amino Transf (AST/SGOT) 141 U/L (15-37) 120 U/L (15-37) Alanine Aminotransferase (ALT/SGPT) 73 U/L (16-63) 64 U/L (16-63) Alkaline Phosphatase 932 U/L (46-116) 789 U/L (46-116) Troponin I Quantitative < 0.017 ng/mL (0.000-0.055) XG-Yma-[id number]-Type Natriuretic Peptide 695 pg/mL (0-124) Total Protein 5.7 g/dL (6.4-8.2) 5.3 g/dL (6.4-8.2) Albumin 1.9 g/dL (3.4-5.0) 1.7 g/dL (3.4-5.0) Lipase 213 U/L (73-393) Bedside Hemoglobin 16.3 g/dL (14-18) Bedside Hematocrit 48 % (37-52) Bedside Sodium 124 mmol/L (135-145) Bedside Potassium 3.9 mmol/L (3.5-5.0) Bedside Chloride 84 mmol/L (98-110) Bedside Total CO2 30 mmol/L (23-32) Bedside Blood Urea Nitrogen 26 mg/dL (8-26) Bedside Creatinine 0.9 mg/dL (0.5-1.4) Bedside Ionized Calcium (Deuce) 1.06 mmol/L (1.13-1.32) Urine Collection Type Unknown Urine Color [place] Urine Clarity Clear Urine pH 5.5 Urine Specific [place] 1.025 Urine Protein Negative mg/dL (NEG-TRACE) Urine Glucose (UA) Negative mg/dL (NEG) Urine Ketones (Stick) Trace mg/dL (NEG) Urine Blood Negative (NEG) Urine Nitrite Negative (NEG) Urine Bilirubin Large (NEG) Urine Urobilinogen Dipstick 0.2 mg/dL (0.2 mg/dL) Urine Leukocyte Esterase Small (NEG) Urine RBC 0 /HPF (0-2) Urine WBC Occ /HPF (0-4) Urine Squamous Epithelial Cells Occ /LPF Urine Bacteria Few /HPF (0-FEW) Urine Hyaline Casts Occasional /HPF Urine Granular Casts Occasional /HPF Urine Mucus Mod /LPF BUN/Creatinine Ratio 27 (6-20) Albumin/Globulin Ratio 0.5 (1.0-1.7) Test 08/21/16 06:15 Prothrombin Time 17.2 SEC (11.7-14.0) Prothromb Time International Ratio 1.5 (0.8-1.1) Sodium Level 128 mmol/L (136-145) Potassium Level 3.4 mmol/L (3.5-5.1) Chloride Level 91 mmol/L (98-107) Carbon Dioxide Level 27 mmol/L (21-32) Anion Gap 10 (6-14) Blood Urea Nitrogen 28 mg/dL (8-26) Creatinine 1.1 mg/dL (0.7-1.3) Estimated GFR (Cockcroft-Gault) 65.4 Glucose Level 91 mg/dL (70-99) Calcium Level 8.3 mg/dL (8.5-10.1) Laboratory Tests Test 08/21/16 06:15 Prothrombin Time 17.2 SEC (11.7-14.0) Prothromb Time International Ratio 1.5 (0.8-1.1) Sodium Level 128 mmol/L (136-145) Potassium Level 3.4 mmol/L (3.5-5.1) Chloride Level 91 mmol/L (98-107) Carbon Dioxide Level 27 mmol/L (21-32) Anion Gap 10 (6-14) Blood Urea Nitrogen 28 mg/dL (8-26) Creatinine 1.1 mg/dL (0.7-1.3) Estimated GFR (Cockcroft-Gault) 65.4 Glucose Level 91 mg/dL (70-99) Calcium Level 8.3 mg/dL (8.5-10.1) Microbiology 08/19/16 Blood Culture - Preliminary, Resulted NO GROWTH AFTER 1 DAY Medications Current Medications Sodium Chloride 500 ml @ 500 mls/hr 1X ONCE IV Last administered on 08/19/16t 11:59; Start 08/19/16 at 11:45; Stop 08/19/16 at 12:44; Status DC Piperacillin Sod/ Tazobactam Sod (Zosyn Per Pharmacy) 1 each PRN DAILY PRN MC SEE COMMENTS; Start 08/19/16 at 11:45; Stop 08/20/16 at 09:09; Status DC Vancomycin HCl (Vanco Per Pharmacy) 1 each PRN DAILY PRN MC SEE COMMENTS; Start 08/19/16 at 11:45; Stop 08/19/16 at 14:44; Status DC Vancomycin HCl 1.25 gm/Sodium Chloride 250 ml @ 166.667 mls/hr 1X ONCE IV Last administered on 08/19/16 15:14; Start 08/19/16 at 12:00; Stop 08/19/16 at 13: 29; Status DC Piperacillin Sod/ Tazobactam Sod 3.375 gm/Sodium Chloride 50 ml @ 100 mls/hr ONCE ONCE IV Last administered on 08/19/16 11:58; Start 08/19/16 at 11:45; Stop 08/19/16 at 12:14; Status DC Iohexol (Omnipaque 300 Mg/ml) 75 ml 1X ONCE IV Last administered on 08/19/16 12:03; Start 08/19/16 at 12:00; Stop 08/19/16 at 12:01; Status DC Info (Do NOT chart on this entry -- for MONITORING) 1 each PRN DAILY PRN MC SEE COMMENTS; Start 08/19/16 at 12:15; Stop 08/21/16 at 12:14 Ondansetron HCl (Zofran) 4 mg PRN Q8HRS PRN IV NAUSEA/VOMITING; Start 08/19/16 at 12:15; Stop 08/19/16 at 13:26; Status DC Fentanyl Citrate (Fentanyl 2ml Vial) 50 mcg PRN Q1HR PRN IV PAIN; Start at 12:15; Stop 08/20/16 at 12:14; Status DC Sodium Chloride 1,000 ml @ 1,000 mls/hr 1X ONCE IV Last administered on 15:14; Start 08/19/16 at 12:45; Stop 08/19/16 at 13:44; Status DC Ondansetron HCl (Zofran) 4 mg PRN Q6HRS PRN IV NAUSEA/VOMITING 1ST CHOICE; Start 08/19/16 at 13:23; Stop 08/20/16 at 13:23; Status DC Fentanyl Citrate (Fentanyl 2ml Vial) 50 mcg PRN Q2HR PRN IV PAIN SEVERE; Start 08/19/16 at 13:30 Atorvastatin Calcium (Lipitor) 10 mg DAILY PO ; Start 08/20/16 at 09:00; Status UNV Vitamin D (Vitamin D3) 1,000 unit DAILY PO Last administered on 08/20/16 09:15 ; Start 08/19/16 at 14:00 Levothyroxine Sodium (Synthroid) 50 mcg DAILY07 PO Last administered on 06:01; Start 08/19/16 at 14:00 Furosemide (Lasix) 60 mg 1X ONCE IVP Last administered on 08/19/16 18:33; Start 08/19/16 at 14:30; Stop 08/19/16 at 14:31; Status DC Enoxaparin Sodium (Lovenox 40mg Syringe) 40 mg Q24H SQ Last administered on 08/20 14:24; Start 08/19/16 at 15:00 Piperacillin Sod/ Tazobactam Sod 4.5 gm/Sodium Chloride 100 ml @ 200 mls/hr Q6HRS IV Last administered on 08/20/16 06:18; Start 08/19/16 at 18:00; Stop 08/20 at 09:09; Status DC Furosemide (Lasix) 40 mg DAILY PO Last administered on 08/20/16 14:23; Start at 14:00 Acetaminophen (Tylenol) 650 mg PRN Q6HRS PRN PO FEVER; Start 08/20/16 at 13:15 Ondansetron HCl (Zofran) 4 mg PRN Q6HRS PRN IV NAUSEA/VOMITING; Start 08/20/16 at 13:15 Morphine Sulfate 2 mg PRN Q2HR PRN IV PAIN; Start 08/20/16 at 13:15 Tramadol HCl (Ultram) 50 mg PRN Q6HRS PRN PO PAIN; Start 08/20/16 at 13:15 Hydralazine HCl (Apresoline) 10 mg PRN Q4HRS PRN IVP ELEVATED BP, SEE COMMENTS ; Start 08/20/16 at 13:15 Docusate Sodium (Colace) 100 mg PRN DAILY PRN PO CONSTIPATION; Start 08/20/16 at 13:15 Phytonadione (Vitamin K) 10 mg 1X ONCE SQ Last administered on 08/20/16 14:23 ; Start 08/20/16 at 13:45; Stop 08/20/16 at 13:46; Status DC Active Scripts Active Reported Ranitidine Hcl 150 Mg Tablet 150 Mg PO BID Ondansetron Hcl 8 Mg Tablet 8 Mg PO BID PRN Vitamin D3 (Cholecalciferol (Vitamin D3)) 1,000 Unit Tablet 1,000 Unit PO DAILY Levothyroxine Sodium 50 Mcg Tablet 75 Mcg PO DAILY Vitals/I & O Vital Sign - Last 24 Hours 08/20/16 08/20/16 08/20/16 08/20/16 08:00 11:08 15:05 19:00 Temp 98.3 98.1 98.2 98.3 98.1 98.2 Pulse 76 82 76 Resp 20 18 19 B/P (MAP) 113/52 (72) 115/66 (82) 113/67 (82) Pulse Ox 91 94 95 O2 Delivery Nasal Cannula Nasal Cannula Nasal Cannula Room Air O2 Flow Rate 4.0 5.0 5.0 4.0 08/20/16 08/20/16 08/21/16 20:00 23:00 03:13 Temp 98.2 98.3 98.2 98.3 Pulse 73 70 Resp 20 20 B/P (MAP) 124/78 (93) 119/72 (88) Pulse Ox 100 94 O2 Delivery Nasal Cannula Nasal Cannula Nasal Cannula O2 Flow Rate 4.0 4.0 4.0 Intake and Output 08/20/16 08/20/16 08/21/16 15:00 23:00 07:00 Intake Total 120 ml 100 ml Balance 120 ml 100 ml Nutrition Consultation Dietary Evaluation: Recommendations by RD: Protein supplementation Comments: Ensure tid Expected Outcomes/Goals: to meet > 75% est nutr needs Malnutrition Findings: Body Fat Depletion (Non Severe: Mod to Severe Weight Status: Appropriate Fluid Accumulation (Severe): Severe DEEJAY SCHROEDER MD Aug 21, 2016 07:29
[2016-08-21] MEDS: FUROSEMIDE 40 MG TABLET. PO SCH (09:35)
[2016-08-21] MEDS: CHOLECALCIFEROL (VITAMIN D3) 1,000 UNIT TABLET PO SCH (09:35)
--- NOTE | 2016-08-21 09:45 | PDOC ---
G I PROGRESS NOTE Reason for Follow-up Jaundice/metastatic gastric cancer Subjective Seen with daughter as interpreter translator. No pain and comfortable. Denies pruritis. Some early satiety interfering with po intake. Physical Exam Lungs clear. RRR Abdomen doughy, soft. LE edema. Review of Relevant I have reviewed the following items meagan (where applicable) has been applied. Labs Laboratory Tests Test 08/19/16 11:00 08/19/16 11:07 08/19/16 11:15 08/20/16 03:30 White Blood Count 24.5 x10^3/uL (4.0-11.0) 18.1 x10^3/uL (4.0-11.0) Red Blood Count 4.34 x10^6/uL (4.30-5.70) 4.08 x10^6/uL (4.30-5.70) Hemoglobin 13.8 g/dL (13.0-17.5) 12.7 g/dL (13.0-17.5) Hematocrit 39.7 % (39.0-53.0) 37.9 % (39.0-53.0) Mean Corpuscular Volume 92 fL (79-100) 93 fL (79-100) Mean Corpuscular Hemoglobin 32 pg (25-35) 31 pg (25-35) Mean Corpuscular Hemoglobin Concent 35 g/dL (31-37) 34 g/dL (31-37) Red Cell Distribution Width 20.6 % (11.5-14.5) 20.1 % (11.5-14.5) Platelet Count 133 x10^3/uL (140-400) 114 x10^3/uL (140-400) Neutrophils (%) (Auto) 92 % (31-73) 89 % (31-73) Lymphocytes (%) (Auto) 1 % (24-48) 3 % (24-48) Monocytes (%) (Auto) 7 % (0-9) 8 % (0-9) Eosinophils (%) (Auto) 0 % (0-3) 0 % (0-3) Basophils (%) (Auto) 0 % (0-3) 0 % (0-3) Neutrophils # (Auto) 22.5 x10^3uL (1.8-7.7) 16.1 x10^3uL (1.8-7.7) Lymphocytes # (Auto) 0.3 x10^3/uL (1.0-4.8) 0.6 x10^3/uL (1.0-4.8) Monocytes # (Auto) 1.6 x10^3/uL (0.0-1.1) 1.4 x10^3/uL (0.0-1.1) Eosinophils # (Auto) 0.0 x10^3/uL (0.0-0.7) 0.0 x10^3/uL (0.0-0.7) Basophils # (Auto) 0.1 x10^3/uL (0.0-0.2) 0.0 x10^3/uL (0.0-0.2) Segmented Neutrophils % 86 % (35-66) Band Neutrophils % 9 % (0-9) Monocytes % 4 % (0-10) Eosinophils % 1 % (0-5) Platelet Estimate Adequate (ADEQUATE) Polychromasia Slight Anisocytosis Mod Target Cells Present Prothrombin Time 22.6 SEC (11.7-14.0) Prothromb Time International Ratio 2.1 (0.8-1.1) Sodium Level 124 mmol/L (136-145) 130 mmol/L (136-145) Potassium Level 4.2 mmol/L (3.5-5.1) 3.5 mmol/L (3.5-5.1) Chloride Level 86 mmol/L (98-107) 92 mmol/L (98-107) Carbon Dioxide Level 30 mmol/L (21-32) 27 mmol/L (21-32) Anion Gap 8 (6-14) 14 mmol/L (6-14) 11 (6-14) Blood Urea Nitrogen 24 mg/dL (8-26) 24 mg/dL (8-26) Creatinine 0.8 mg/dL (0.7-1.3) 0.9 mg/dL (0.7-1.3) Estimated GFR (Cockcroft-Gault) 94.5 82.5 Glucose Level 89 mg/dL (70-99) 94 mg/dL (70-99) 71 mg/dL (70-99) Lactic Acid Level 2.0 mmol/L (0.4-2.0) Calcium Level 8.7 mg/dL (8.5-10.1) 7.9 mg/dL (8.5-10.1) Magnesium Level 2.3 mg/dL (1.8-2.4) Total Bilirubin 23.0 mg/dL (0.2-1.0) 20.5 mg/dL (0.2-1.0) Direct Bilirubin 17.7 mg/dL (0.0-0.2) Aspartate Amino Transf (AST/SGOT) 141 U/L (15-37) 120 U/L (15-37) Alanine Aminotransferase (ALT/SGPT) 73 U/L (16-63) 64 U/L (16-63) Alkaline Phosphatase 932 U/L (46-116) 789 U/L (46-116) Troponin I Quantitative < 0.017 ng/mL (0.000-0.055) [id number]-Type Natriuretic Peptide 695 pg/mL (0-124) Total Protein 5.7 g/dL (6.4-8.2) 5.3 g/dL (6.4-8.2) Albumin 1.9 g/dL (3.4-5.0) 1.7 g/dL (3.4-5.0) Lipase 213 U/L (73-393) Bedside Hemoglobin 16.3 g/dL (14-18) Bedside Hematocrit 48 % (37-52) Bedside Sodium 124 mmol/L (135-145) Bedside Potassium 3.9 mmol/L (3.5-5.0) Bedside Chloride 84 mmol/L (98-110) Bedside Total CO2 30 mmol/L (23-32) Bedside Blood Urea Nitrogen 26 mg/dL (8-26) Bedside Creatinine 0.9 mg/dL (0.5-1.4) Bedside Ionized Calcium (Deuce) 1.06 mmol/L (1.13-1.32) Urine Collection Type Unknown Urine Color [place] Urine Clarity Clear Urine pH 5.5 Urine Specific [place] 1.025 Urine Protein Negative mg/dL (NEG-TRACE) Urine Glucose (UA) Negative mg/dL (NEG) Urine Ketones (Stick) Trace mg/dL (NEG) Urine Blood Negative (NEG) Urine Nitrite Negative (NEG) Urine Bilirubin Large (NEG) Urine Urobilinogen Dipstick 0.2 mg/dL (0.2 mg/dL) Urine Leukocyte Esterase Small (NEG) Urine RBC 0 /HPF (0-2) Urine WBC Occ /HPF (0-4) Urine Squamous Epithelial Cells Occ /LPF Urine Bacteria Few /HPF (0-FEW) Urine Hyaline Casts Occasional /HPF Urine Granular Casts Occasional /HPF Urine Mucus Mod /LPF BUN/Creatinine Ratio 27 (6-20) Albumin/Globulin Ratio 0.5 (1.0-1.7) Test 08/21/16 06:15 White Blood Count 11.6 x10^3/uL (4.0-11.0) Red Blood Count 4.06 x10^6/uL (4.30-5.70) Hemoglobin 12.5 g/dL (13.0-17.5) Hematocrit 37.9 % (39.0-53.0) Mean Corpuscular Volume 93 fL (79-100) Mean Corpuscular Hemoglobin 31 pg (25-35) Mean Corpuscular Hemoglobin Concent 33 g/dL (31-37) Red Cell Distribution Width 20.4 % (11.5-14.5) Platelet Count 123 x10^3/uL (140-400) Neutrophils (%) (Auto) 80 % (31-73) Lymphocytes (%) (Auto) 9 % (24-48) Monocytes (%) (Auto) 11 % (0-9) Eosinophils (%) (Auto) 1 % (0-3) Basophils (%) (Auto) 0 % (0-3) Neutrophils # (Auto) 9.2 x10^3uL (1.8-7.7) Lymphocytes # (Auto) 1.0 x10^3/uL (1.0-4.8) Monocytes # (Auto) 1.3 x10^3/uL (0.0-1.1) Eosinophils # (Auto) 0.1 x10^3/uL (0.0-0.7) Basophils # (Auto) 0.0 x10^3/uL (0.0-0.2) Prothrombin Time 17.2 SEC (11.7-14.0) Prothromb Time International Ratio 1.5 (0.8-1.1) Sodium Level 128 mmol/L (136-145) Potassium Level 3.4 mmol/L (3.5-5.1) Chloride Level 91 mmol/L (98-107) Carbon Dioxide Level 27 mmol/L (21-32) Anion Gap 10 (6-14) Blood Urea Nitrogen 28 mg/dL (8-26) Creatinine 1.1 mg/dL (0.7-1.3) Estimated GFR (Cockcroft-Gault) 65.4 Glucose Level 91 mg/dL (70-99) Calcium Level 8.3 mg/dL (8.5-10.1) Laboratory Tests Test 08/21/16 06:15 White Blood Count 11.6 x10^3/uL (4.0-11.0) Red Blood Count 4.06 x10^6/uL (4.30-5.70) Hemoglobin 12.5 g/dL (13.0-17.5) Hematocrit 37.9 % (39.0-53.0) Mean Corpuscular Volume 93 fL (79-100) Mean Corpuscular Hemoglobin 31 pg (25-35) Mean Corpuscular Hemoglobin Concent 33 g/dL (31-37) Red Cell Distribution Width 20.4 % (11.5-14.5) Platelet Count 123 x10^3/uL (140-400) Neutrophils (%) (Auto) 80 % (31-73) Lymphocytes (%) (Auto) 9 % (24-48) Monocytes (%) (Auto) 11 % (0-9) Eosinophils (%) (Auto) 1 % (0-3) Basophils (%) (Auto) 0 % (0-3) Neutrophils # (Auto) 9.2 x10^3uL (1.8-7.7) Lymphocytes # (Auto) 1.0 x10^3/uL (1.0-4.8) Monocytes # (Auto) 1.3 x10^3/uL (0.0-1.1) Eosinophils # (Auto) 0.1 x10^3/uL (0.0-0.7) Basophils # (Auto) 0.0 x10^3/uL (0.0-0.2) Prothrombin Time 17.2 SEC (11.7-14.0) Prothromb Time International Ratio 1.5 (0.8-1.1) Sodium Level 128 mmol/L (136-145) Potassium Level 3.4 mmol/L (3.5-5.1) Chloride Level 91 mmol/L (98-107) Carbon Dioxide Level 27 mmol/L (21-32) Anion Gap 10 (6-14) Blood Urea Nitrogen 28 mg/dL (8-26) Creatinine 1.1 mg/dL (0.7-1.3) Estimated GFR (Cockcroft-Gault) 65.4 Glucose Level 91 mg/dL (70-99) Calcium Level 8.3 mg/dL (8.5-10.1) Microbiology 08/19/16 Blood Culture - Preliminary, Resulted NO GROWTH AFTER 1 DAY INR better after Vit. K. Medications Current Medications Sodium Chloride 500 ml @ 500 mls/hr 1X ONCE IV Last administered on 08/19/16 11:59; Start 08/19/16 at 11:45; Stop 08/19/16 at 12:44; Status DC Piperacillin Sod/ Tazobactam Sod (Zosyn Per Pharmacy) 1 each PRN DAILY PRN MC SEE COMMENTS; Start 08/19/16 at 11:45; Stop 08/20/16 at 09:09; Status DC Vancomycin HCl (Vanco Per Pharmacy) 1 each PRN DAILY PRN MC SEE COMMENTS; Start 08/19/16 at 11:45; Stop 08/19/16 at 14:44; Status DC Vancomycin HCl 1.25 gm/Sodium Chloride 250 ml @ 166.667 mls/hr 1X ONCE IV Last administered on 08/19/16 15:14; Start 08/19/16 at 12:00; Stop 08/19/16 at 13: 29; Status DC Piperacillin Sod/ Tazobactam Sod 3.375 gm/Sodium Chloride 50 ml @ 100 mls/hr ONCE ONCE IV Last administered on 08/19/16 11:58; Start 08/19/16 at 11:45; Stop 08/19/16 at 12:14; Status DC Iohexol (Omnipaque 300 Mg/ml) 75 ml 1X ONCE IV Last administered on 08/19/16 12:03; Start 08/19/16 at 12:00; Stop 08/19/16 at 12:01; Status DC Info (Do NOT chart on this entry -- for MONITORING) 1 each PRN DAILY PRN MC SEE COMMENTS; Start 08/19/16 at 12:15; Stop 08/21/16 at 12:14 Ondansetron HCl (Zofran) 4 mg PRN Q8HRS PRN IV NAUSEA/VOMITING; Start 08/19/16 at 12:15; Stop 08/19/16 at 13:26; Status DC Fentanyl Citrate (Fentanyl 2ml Vial) 50 mcg PRN Q1HR PRN IV PAIN; Start at 12:15; Stop 08/20/16 at 12:14; Status DC Sodium Chloride 1,000 ml @ 1,000 mls/hr 1X ONCE IV Last administered on 15:14; Start 08/19/16 at 12:45; Stop 08/19/16 at 13:44; Status DC Ondansetron HCl (Zofran) 4 mg PRN Q6HRS PRN IV NAUSEA/VOMITING 1ST CHOICE; Start 08/19/16 at 13:23; Stop 08/20/16 at 13:23; Status DC Fentanyl Citrate (Fentanyl 2ml Vial) 50 mcg PRN Q2HR PRN IV PAIN SEVERE; Start 08/19/16 at 13:30 Atorvastatin Calcium (Lipitor) 10 mg DAILY PO ; Start 08/20/16 at 09:00; Status UNV Vitamin D (Vitamin D3) 1,000 unit DAILY PO Last administered on 08/21/16 09:35 ; Start 08/19/16 at 14:00 Levothyroxine Sodium (Synthroid) 50 mcg DAILY07 PO Last administered on 06:01; Start 08/19/16 at 14:00 Furosemide (Lasix) 60 mg 1X ONCE IVP Last administered on 08/19/16 18:33; Start 08/19/16 at 14:30; Stop 08/19/16 at 14:31; Status DC Enoxaparin Sodium (Lovenox 40mg Syringe) 40 mg Q24H SQ Last administered on 08/20 14:24; Start 08/19/16 at 15:00 Piperacillin Sod/ Tazobactam Sod 4.5 gm/Sodium Chloride 100 ml @ 200 mls/hr Q6HRS IV Last administered on 08/20/16 06:18; Start 08/19/16 at 18:00; Stop 08/20 at 09:09; Status DC Furosemide (Lasix) 40 mg DAILY PO Last administered on 08/21/16 09:35; Start at 14:00 Acetaminophen (Tylenol) 650 mg PRN Q6HRS PRN PO FEVER; Start 08/20/16 at 13:15 Ondansetron HCl (Zofran) 4 mg PRN Q6HRS PRN IV NAUSEA/VOMITING; Start 08/20/16 at 13:15 Morphine Sulfate 2 mg PRN Q2HR PRN IV PAIN; Start 08/20/16 at 13:15 Tramadol HCl (Ultram) 50 mg PRN Q6HRS PRN PO PAIN; Start 08/20/16 at 13:15 Hydralazine HCl (Apresoline) 10 mg PRN Q4HRS PRN IVP ELEVATED BP, SEE COMMENTS ; Start 08/20/16 at 13:15 Docusate Sodium (Colace) 100 mg PRN DAILY PRN PO CONSTIPATION; Start 08/20/16 at 13:15 Phytonadione (Vitamin K) 10 mg 1X ONCE SQ Last administered on 08/20/16t 14:23 ; Start 08/20/16 at 13:45; Stop 08/20/16 at 13:46; Status DC Active Scripts Active Reported Ranitidine Hcl 150 Mg Tablet 150 Mg PO BID Ondansetron Hcl 8 Mg Tablet 8 Mg PO BID PRN Vitamin D3 (Cholecalciferol (Vitamin D3)) 1,000 Unit Tablet 1,000 Unit PO DAILY Levothyroxine Sodium 50 Mcg Tablet 75 Mcg PO DAILY Vitals/I & O Vital Sign - Last 24 Hours 08/20/16 08/20/16 08/20/16 08/20/16 11:08 15:05 19:00 20:00 Temp 98.3 98.1 98.2 98.3 98.1 98.2 Pulse 76 82 76 Resp 20 18 19 B/P (MAP) 113/52 (72) 115/66 (82) 113/67 (82) Pulse Ox 91 94 95 O2 Delivery Nasal Cannula Nasal Cannula Room Air Nasal Cannula O2 Flow Rate 5.0 5.0 4.0 4.0 08/20/16 08/21/16 08/21/16 23:00 03:13 07:25 Temp 98.2 98.3 97.5 98.2 98.3 97.5 Pulse 73 70 67 Resp 20 20 18 B/P (MAP) 124/78 (93) 119/72 (88) 144/60 (88) Pulse Ox 100 94 94 O2 Delivery Nasal Cannula Nasal Cannula Nasal Cannula O2 Flow Rate 4.0 4.0 4.0 Intake and Output 08/20/16 08/20/16 08/21/16 14:59 22:59 06:59 Intake Total 120 ml 100 ml Balance 120 ml 100 ml Problem List Problems Medical Problems: (1) Sepsis Status: Acute Assessment Metastatic gastric adenocarcinoma; suspect responsible for ascites, pleural effusions, biliary obstruction. Early satiety; unclear this from the ascites or atypical GERD. Certainly at risk for this post-resection/pull-up. Plan of Care: Continue current Tx, Mgmt Plan of Care Note Paracentesis/thoracentesis ordered, await findings. Will try po PPI. As previously stated, unless symptomatic from the biliary obstruction, would not specifically address. PAOLO SWANN MD Aug 21, 2016 09:45
--- NOTE | 2016-08-21 09:49 | PDOC ---
Subjective: Subjective: Onc f/u- Gastric cancer with progression Pt resting comfortably this AM Daughter present, states dad with no complaints other than early satiety, cannot eat, diffuse swelling Denies itching Objective: Vital Signs: Vital Signs Date Time Temp Pulse Resp B/P (MAP) Pulse Ox O2 Delivery O2 Flow Rate FiO2 08/21/16 07:25 97.5 67 18 144/60 (88) 94 Nasal Cannula 4.0 97.5 Physical Exam: Extremities: Other (3+ edema diffusely unchanged) General: Other (resting comfortably) Skin: Other (jaundiced) Labs/Imaging: CBC, CMP all remain with abnormalities at his baseline Assessment/Plan A/P: 1. 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 Started cyramza, cycle 1 08/13, unlikely to provide significant benefit. Performance status too poor for further tx. Recommend hospice, palliative care consult pending. DNAR. Consulted palliative care, recommend hospice. D/w daughter, unsure how much she understood. Dr. Dinh discussed code status and she agreed to DNAR. Daughter denies any itching, no apparent need for MRCP. 2. Anasarca, pleural effusion now on 5 L O2, no respiratory distress. Unless significant need to perform thoracentesis, will likely reaccumulate and do not feel strongly pt needs this. Daughter questioning this with me this AM. Please call with any further questions. I will update Dr. Santos as well. DALTON MELENDREZ DO Aug 21, 2016 09:49
[2016-08-21] MEDS ORDERED: FUROSEMIDE 20 MG/2 ML VIAL. IVP ONE (10:45)
--- NOTE | 2016-08-21 10:51 | PDOC ---
Infectious Disease Note Subjective Subjective feeling better says ROS ROS GEN: Denies fevers, chills, sweats HEENT: Denies blurred vision, sore throat CV: Denies chest pain RESP: Denies shortness of air, cough GI: Denies n/v/d NEURO: Denies confusion, dizziness MSK: Denies weakness, joint pain/swelling Vital Sign Vital Signs Vital Signs Date Time Temp Pulse Resp B/P (MAP) Pulse Ox O2 Delivery O2 Flow Rate FiO2 08/21/16 07:25 97.5 67 18 144/60 (88) 94 Nasal Cannula 4.0 97.5 Physical Exam PHYSICAL EXAM GENERAL: NAD, Alert HEENT: PERRL, OC/OP NECK: Supple, no JVD, no LN LUNGS: Clear HEART: S1S2, no gallop, no murmur ABD: Soft, NT, no organomegaly, no rebound EXT: No edema, no cyanosis ENVIRONMENTAL COORDINATOR: Alert, oriented x 3, no focal neurologic deficit SKIN: No rash IV: ok Labs Lab Laboratory Tests Test 08/21/16 06:15 White Blood Count 11.6 x10^3/uL (4.0-11.0) Red Blood Count 4.06 x10^6/uL (4.30-5.70) Hemoglobin 12.5 g/dL (13.0-17.5) Hematocrit 37.9 % (39.0-53.0) Mean Corpuscular Volume 93 fL (79-100) Mean Corpuscular Hemoglobin 31 pg (25-35) Mean Corpuscular Hemoglobin Concent 33 g/dL (31-37) Red Cell Distribution Width 20.4 % (11.5-14.5) Platelet Count 123 x10^3/uL (140-400) Neutrophils (%) (Auto) 80 % (31-73) Lymphocytes (%) (Auto) 9 % (24-48) Monocytes (%) (Auto) 11 % (0-9) Eosinophils (%) (Auto) 1 % (0-3) Basophils (%) (Auto) 0 % (0-3) Neutrophils # (Auto) 9.2 x10^3uL (1.8-7.7) Lymphocytes # (Auto) 1.0 x10^3/uL (1.0-4.8) Monocytes # (Auto) 1.3 x10^3/uL (0.0-1.1) Eosinophils # (Auto) 0.1 x10^3/uL (0.0-0.7) Basophils # (Auto) 0.0 x10^3/uL (0.0-0.2) Prothrombin Time 17.2 SEC (11.7-14.0) Prothromb Time International Ratio 1.5 (0.8-1.1) Sodium Level 128 mmol/L (136-145) Potassium Level 3.4 mmol/L (3.5-5.1) Chloride Level 91 mmol/L (98-107) Carbon Dioxide Level 27 mmol/L (21-32) Anion Gap 10 (6-14) Blood Urea Nitrogen 28 mg/dL (8-26) Creatinine 1.1 mg/dL (0.7-1.3) Estimated GFR (Cockcroft-Gault) 65.4 Glucose Level 91 mg/dL (70-99) Calcium Level 8.3 mg/dL (8.5-10.1) Objective Assessment Leukocytosis, chronic Metastatic Gastric ca on chemo Anasarca Liver failure with ascites Pleural effusion Plan Plan of Care supportive care d/w daughter hospice in works BRANDI EVANS MD Aug 21, 2016 10:51
[2016-08-21 11:32] VITALS: BP 107/63
[2016-08-21] MEDS: PANTOPRAZOLE 40 MG TABLET.DR. PO SCH (12:33)
[2016-08-21 15:33] VITALS: BP 123/73
[2016-08-21] MEDS: ENOXAPARIN 40 MG/0.4 ML SYRINGE. SQ SCH (16:00)
--- NOTE | 2016-08-21 18:04 | PDOC ---
PULMONARY PROGRESS NOTES Subjective PT NOT MORE SOA NO KNIGHT PER DAUGHTER Vitals Vital Signs Date Time Temp Pulse Resp B/P (MAP) Pulse Ox O2 Delivery O2 Flow Rate FiO2 08/21/16 15:33 97.7 77 19 123/73 (90) 97 Nasal Cannula 4.0 97.7 ROS: No Nausea, No Chest Pain, No Abdominal Pain, No Increase Cough Lungs: Other (bl decreased bs) Cardiovascular: S1, S2 Abdomen: Soft Neuro Exam: Alert Skin: Warm Labs Laboratory Tests Test 08/20/16 03:30 08/21/16 06:15 White Blood Count 18.1 x10^3/uL (4.0-11.0) 11.6 x10^3/uL (4.0-11.0) Red Blood Count 4.08 x10^6/uL (4.30-5.70) 4.06 x10^6/uL (4.30-5.70) Hemoglobin 12.7 g/dL (13.0-17.5) 12.5 g/dL (13.0-17.5) Hematocrit 37.9 % (39.0-53.0) 37.9 % (39.0-53.0) Mean Corpuscular Volume 93 fL (79-100) 93 fL (79-100) Mean Corpuscular Hemoglobin 31 pg (25-35) 31 pg (25-35) Mean Corpuscular Hemoglobin Concent 34 g/dL (31-37) 33 g/dL (31-37) Red Cell Distribution Width 20.1 % (11.5-14.5) 20.4 % (11.5-14.5) Platelet Count 114 x10^3/uL (140-400) 123 x10^3/uL (140-400) Neutrophils (%) (Auto) 89 % (31-73) 80 % (31-73) Lymphocytes (%) (Auto) 3 % (24-48) 9 % (24-48) Monocytes (%) (Auto) 8 % (0-9) 11 % (0-9) Eosinophils (%) (Auto) 0 % (0-3) 1 % (0-3) Basophils (%) (Auto) 0 % (0-3) 0 % (0-3) Neutrophils # (Auto) 16.1 x10^3uL (1.8-7.7) 9.2 x10^3uL (1.8-7.7) Lymphocytes # (Auto) 0.6 x10^3/uL (1.0-4.8) 1.0 x10^3/uL (1.0-4.8) Monocytes # (Auto) 1.4 x10^3/uL (0.0-1.1) 1.3 x10^3/uL (0.0-1.1) Eosinophils # (Auto) 0.0 x10^3/uL (0.0-0.7) 0.1 x10^3/uL (0.0-0.7) Basophils # (Auto) 0.0 x10^3/uL (0.0-0.2) 0.0 x10^3/uL (0.0-0.2) Sodium Level 130 mmol/L (136-145) 128 mmol/L (136-145) Potassium Level 3.5 mmol/L (3.5-5.1) 3.4 mmol/L (3.5-5.1) Chloride Level 92 mmol/L (98-107) 91 mmol/L (98-107) Carbon Dioxide Level 27 mmol/L (21-32) 27 mmol/L (21-32) Anion Gap 11 (6-14) 10 (6-14) Blood Urea Nitrogen 24 mg/dL (8-26) 28 mg/dL (8-26) Creatinine 0.9 mg/dL (0.7-1.3) 1.1 mg/dL (0.7-1.3) Estimated GFR (Cockcroft-Gault) 82.5 65.4 BUN/Creatinine Ratio 27 (6-20) Glucose Level 71 mg/dL (70-99) 91 mg/dL (70-99) Calcium Level 7.9 mg/dL (8.5-10.1) 8.3 mg/dL (8.5-10.1) Total Bilirubin 20.5 mg/dL (0.2-1.0) Aspartate Amino Transf (AST/SGOT) 120 U/L (15-37) Alanine Aminotransferase (ALT/SGPT) 64 U/L (16-63) Alkaline Phosphatase 789 U/L (46-116) Total Protein 5.3 g/dL (6.4-8.2) Albumin 1.7 g/dL (3.4-5.0) Albumin/Globulin Ratio 0.5 (1.0-1.7) Prothrombin Time 17.2 SEC (11.7-14.0) Prothromb Time International Ratio 1.5 (0.8-1.1) Laboratory Tests Test 08/21/16 06:15 White Blood Count 11.6 x10^3/uL (4.0-11.0) Red Blood Count 4.06 x10^6/uL (4.30-5.70) Hemoglobin 12.5 g/dL (13.0-17.5) Hematocrit 37.9 % (39.0-53.0) Mean Corpuscular Volume 93 fL (79-100) Mean Corpuscular Hemoglobin 31 pg (25-35) Mean Corpuscular Hemoglobin Concent 33 g/dL (31-37) Red Cell Distribution Width 20.4 % (11.5-14.5) Platelet Count 123 x10^3/uL (140-400) Neutrophils (%) (Auto) 80 % (31-73) Lymphocytes (%) (Auto) 9 % (24-48) Monocytes (%) (Auto) 11 % (0-9) Eosinophils (%) (Auto) 1 % (0-3) Basophils (%) (Auto) 0 % (0-3) Neutrophils # (Auto) 9.2 x10^3uL (1.8-7.7) Lymphocytes # (Auto) 1.0 x10^3/uL (1.0-4.8) Monocytes # (Auto) 1.3 x10^3/uL (0.0-1.1) Eosinophils # (Auto) 0.1 x10^3/uL (0.0-0.7) Basophils # (Auto) 0.0 x10^3/uL (0.0-0.2) Prothrombin Time 17.2 SEC (11.7-14.0) Prothromb Time International Ratio 1.5 (0.8-1.1) Sodium Level 128 mmol/L (136-145) Potassium Level 3.4 mmol/L (3.5-5.1) Chloride Level 91 mmol/L (98-107) Carbon Dioxide Level 27 mmol/L (21-32) Anion Gap 10 (6-14) Blood Urea Nitrogen 28 mg/dL (8-26) Creatinine 1.1 mg/dL (0.7-1.3) Estimated GFR (Cockcroft-Gault) 65.4 Glucose Level 91 mg/dL (70-99) Calcium Level 8.3 mg/dL (8.5-10.1) Medications Active Scripts Medications Dose Route/Sig Max Daily Dose Days Date Category Ranitidine Hcl 150 Mg Tablet 150 Mg PO BID 08/19/16 Reported Ondansetron Hcl 8 Mg Tablet 8 Mg PO BID PRN 08/19/16 Reported Vitamin D3 (Cholecalciferol (Vitamin D3)) 1,000 Unit Tablet 1,000 Unit PO DAILY 02/06/15 Reported Levothyroxine Sodium 50 Mcg Tablet 75 Mcg PO DAILY 02/06/15 Reported Impression . RESP DISTRESS SEC TO BILATERAL EFFUSION ANASARCA METS GASTRIC CA JAUNDICE HYPONATREMIA SEVERE PROTEIN MAL POA Plan . D/W DR GOODSON HE IS BACK TOMORROW I REC PALLIATIVE CARE NO NEED FOR THORACENTESIS AT THIS TIME RECOMMEND PALLIATIVE CARE NOT SOA AT THIS TIME WILL MONITOR MAY NEED A THORACENTESIS, ONLY PROBLEM FLUID WILL REACCUMULATE RAPIDLY SPOKE WITH DAUGHTER LANI BRAMBILA MD Aug 21, 2016 18:04
--- NOTE | 2016-08-21 18:32 | PDOC2 ---
PALLIATIVE CARE Palliative Care Note Palliative Care Consult requested by Dr. Duron to address goals of care Patient does not speak [place]. Daughter- Steffanie stays with patient at all times Diagnosis: Gastroesophageal caner with liver mets. progressed with chemotherapy; poor performance status; Oncology recommends no further treatments DNR/DNI Discussed with daughter. She understands without this attempt her father likely would . Outside the Hospital DNR/DNI form signed Discussed Hospice. She would like to take him home. Has no preference of hospice agency. DME: [facility]; no hospital bed at this time. oxygen. Elva SIMMS will assist with discharge plans. ISAIAS MORE Aug 21, 2016 18:32
[2016-08-21 19:33] VITALS: BP 121/74
[2016-08-21 23:51] VITALS: BP 119/70
[2016-08-22 03:16] VITALS: BP 130/80
[2016-08-22] MEDS: LEVOTHYROXINE 50 MCG TABLET PO SCH (06:18)
[2016-08-22 07:36] VITALS: BP 115/67
[2016-08-22] MEDS: PANTOPRAZOLE 40 MG TABLET.DR. PO SCH (09:26)
[2016-08-22] MEDS: FUROSEMIDE 40 MG TABLET. PO SCH (09:27)
[2016-08-22] MEDS: CHOLECALCIFEROL (VITAMIN D3) 1,000 UNIT TABLET PO SCH (09:27)
--- NOTE | 2016-08-22 10:25 | PDOC ---
Objective: Objective: Pt in restroom. D/w RN and daughter. Plans for home w/ Hospice today. No pruritus, tolerating Ensure/Boost. Reviewed palliative care, SW, and pulm notes. Vital Signs: Vital Signs Date Time Temp Pulse Resp B/P (MAP) Pulse Ox O2 Delivery O2 Flow Rate FiO2 08/22/16 08:00 Nasal Cannula 4.0 08/22/16 07:36 97.9 77 18 115/67 (83) 95 97.9 PE: GEN: NAD, in restroom on toilet A/P: Metastatic gastric adenocarcinoma Pleural effusions, ascites, anasarca -- Plans for home w/ hospice today. RADHA FOURNIER Aug 22, 2016 10:25
[2016-08-22] MEDS ORDERED: ACET325T9 PO (11:17)
[2016-08-22] MEDS ORDERED: DOCU100C28 PO (11:19)
[2016-08-22 11:20] VITALS: BP 126/66
--- NOTE | 2016-08-22 12:55 | PDOC ---
PROGRESS NOTES Subjective Subjective c/c - f/u of gastric ca ROS - feels weak Objective Objective Vital Signs Date Time Temp Pulse Resp B/P (MAP) Pulse Ox O2 Delivery O2 Flow Rate FiO2 08/22/16 11:20 97.9 84 18 126/66 (86) 94 Nasal Cannula 97.9 08/22/16 08:00 4.0 Intake and Output 08/22/16 07:00 Intake Total 1920 ml Balance 1920 ml Intake Oral 1920 ml # Voids 9 # Bowel Movements 1 Physical Exam Heart: Normal S1, Normal S2 General: Alert, Oriented X3 Lungs: Clear to auscultation Assessment Assessment Problems Medical Problems: (1) Sepsis Status: Acute A/P: 1. 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 Started cyramza, cycle 1 08/13, unlikely to provide significant benefit. Performance status too poor for further tx. Recommend hospice, palliative care consult appreciated, DNAR. Consulted palliative care, recommend hospice. D/w daughter in detail and she agrees. 2. Anasarca, pleural effusion now on 5 L O2, no respiratory distress. No need for thoracentesis as he is asymptomatic. I d/w Dr Guzman and daughter. Comment Review of Relevant I have reviewed the following items meagan (where applicable) has been applied. Labs Laboratory Tests Test 08/21/16 06:15 White Blood Count 11.6 x10^3/uL (4.0-11.0) Red Blood Count 4.06 x10^6/uL (4.30-5.70) Hemoglobin 12.5 g/dL (13.0-17.5) Hematocrit 37.9 % (39.0-53.0) Mean Corpuscular Volume 93 fL (79-100) Mean Corpuscular Hemoglobin 31 pg (25-35) Mean Corpuscular Hemoglobin Concent 33 g/dL (31-37) Red Cell Distribution Width 20.4 % (11.5-14.5) Platelet Count 123 x10^3/uL (140-400) Neutrophils (%) (Auto) 80 % (31-73) Lymphocytes (%) (Auto) 9 % (24-48) Monocytes (%) (Auto) 11 % (0-9) Eosinophils (%) (Auto) 1 % (0-3) Basophils (%) (Auto) 0 % (0-3) Neutrophils # (Auto) 9.2 x10^3uL (1.8-7.7) Lymphocytes # (Auto) 1.0 x10^3/uL (1.0-4.8) Monocytes # (Auto) 1.3 x10^3/uL (0.0-1.1) Eosinophils # (Auto) 0.1 x10^3/uL (0.0-0.7) Basophils # (Auto) 0.0 x10^3/uL (0.0-0.2) Prothrombin Time 17.2 SEC (11.7-14.0) Prothromb Time International Ratio 1.5 (0.8-1.1) Sodium Level 128 mmol/L (136-145) Potassium Level 3.4 mmol/L (3.5-5.1) Chloride Level 91 mmol/L (98-107) Carbon Dioxide Level 27 mmol/L (21-32) Anion Gap 10 (6-14) Blood Urea Nitrogen 28 mg/dL (8-26) Creatinine 1.1 mg/dL (0.7-1.3) Estimated GFR (Cockcroft-Gault) 65.4 Glucose Level 91 mg/dL (70-99) Calcium Level 8.3 mg/dL (8.5-10.1) Microbiology 08/19/16 Blood Culture - Preliminary, Resulted NO GROWTH AFTER 3 DAYS Medications Current Medications Sodium Chloride 500 ml @ 500 mls/hr 1X ONCE IV Last administered on 08/19/16 11:59; Start 08/19/16 at 11:45; Stop 08/19/16 at 12:44; Status DC Piperacillin Sod/ Tazobactam Sod (Zosyn Per Pharmacy) 1 each PRN DAILY PRN MC SEE COMMENTS; Start 08/19/16 at 11:45; Stop 08/20/16 at 09:09; Status DC Vancomycin HCl (Vanco Per Pharmacy) 1 each PRN DAILY PRN MC SEE COMMENTS; Start 08/19/16 at 11:45; Stop 08/19/16 at 14:44; Status DC Vancomycin HCl 1.25 gm/Sodium Chloride 250 ml @ 166.667 mls/hr 1X ONCE IV Last administered on 08/19/16 15:14; Start 08/19/16 at 12:00; Stop 08/19/16 at 13: 29; Status DC Piperacillin Sod/ Tazobactam Sod 3.375 gm/Sodium Chloride 50 ml @ 100 mls/hr ONCE ONCE IV Last administered on 08/19/16 11:58; Start 08/19/16 at 11:45; Stop 08/19/16 at 12:14; Status DC Iohexol (Omnipaque 300 Mg/ml) 75 ml 1X ONCE IV Last administered on 08/19/16 12:03; Start 08/19/16 at 12:00; Stop 08/19/16 at 12:01; Status DC Info (Do NOT chart on this entry -- for MONITORING) 1 each PRN DAILY PRN MC SEE COMMENTS; Start 08/19/16 at 12:15; Stop 08/21/16 at 12:14; Status DC Ondansetron HCl (Zofran) 4 mg PRN Q8HRS PRN IV NAUSEA/VOMITING; Start 08/19/16 at 12:15; Stop 08/19/16 at 13:26; Status DC Fentanyl Citrate (Fentanyl 2ml Vial) 50 mcg PRN Q1HR PRN IV PAIN; Start at 12:15; Stop 08/20/16 at 12:14; Status DC Sodium Chloride 1,000 ml @ 1,000 mls/hr 1X ONCE IV Last administered on 15:14; Start 08/19/16 at 12:45; Stop 08/19/16 at 13:44; Status DC Ondansetron HCl (Zofran) 4 mg PRN Q6HRS PRN IV NAUSEA/VOMITING 1ST CHOICE; Start 08/19/16 at 13:23; Stop 08/20/16 at 13:23; Status DC Fentanyl Citrate (Fentanyl 2ml Vial) 50 mcg PRN Q2HR PRN IV PAIN SEVERE; Start 08/19/16 at 13:30; Stop 08/22/16 at 12:06; Status DC Atorvastatin Calcium (Lipitor) 10 mg DAILY PO ; Start 08/20/16 at 09:00; Status UNV Vitamin D (Vitamin D3) 1,000 unit DAILY PO Last administered on 08/22/16 09:27 ; Start 08/19/16 at 14:00; Stop 08/22/16 at 12:06; Status DC Levothyroxine Sodium (Synthroid) 50 mcg DAILY07 PO Last administered on 06:18; Start 08/19/16 at 14:00; Stop 08/22/16 at 12:06; Status DC Furosemide (Lasix) 60 mg 1X ONCE IVP Last administered on 08/19/16 18:33; Start 08/19/16 at 14:30; Stop 08/19/16 at 14:31; Status DC Enoxaparin Sodium (Lovenox 40mg Syringe) 40 mg Q24H SQ Last administered on 08/21 16:00; Start 08/19/16 at 15:00; Stop 08/22/16 at 12:06; Status DC Piperacillin Sod/ Tazobactam Sod 4.5 gm/Sodium Chloride 100 ml @ 200 mls/hr Q6HRS IV Last administered on 08/20/16 06:18; Start 08/19/16 at 18:00; Stop 08/20 at 09:09; Status DC Furosemide (Lasix) 40 mg DAILY PO Last administered on 08/22/16 09:27; Start at 14:00; Stop 08/22/16 at 12:06; Status DC Acetaminophen (Tylenol) 650 mg PRN Q6HRS PRN PO FEVER; Start 08/20/16 at 13:15; Stop 08/22/16 at 12:06; Status DC Ondansetron HCl (Zofran) 4 mg PRN Q6HRS PRN IV NAUSEA/VOMITING; Start 08/20/16 at 13:15; Stop 08/22/16 at 12:06; Status DC Morphine Sulfate 2 mg PRN Q2HR PRN IV PAIN; Start 08/20/16 at 13:15; Stop at 12:06; Status DC Tramadol HCl (Ultram) 50 mg PRN Q6HRS PRN PO PAIN; Start 08/20/16 at 13:15; Stop 08/22/16 at 12:06; Status DC Hydralazine HCl (Apresoline) 10 mg PRN Q4HRS PRN IVP ELEVATED BP, SEE COMMENTS ; Start 08/20/16 at 13:15; Stop 08/22/16 at 12:06; Status DC Docusate Sodium (Colace) 100 mg PRN DAILY PRN PO CONSTIPATION; Start 08/20/16 at 13:15; Stop 08/22/16 at 12:06; Status DC Phytonadione (Vitamin K) 10 mg 1X ONCE SQ Last administered on 08/20/16 14:23 ; Start 08/20/16 at 13:45; Stop 08/20/16 at 13:46; Status DC Pantoprazole Sodium (Protonix) 40 mg DAILYAC PO Last administered on 08/22/16 09:26; Start 08/21/16 at 10:00; Stop 08/22/16 at 12:06; Status DC Furosemide (Lasix) 20 mg 1X ONCE IVP Last administered on 08/21/16 12:34; Start 08/21/16 at 10:45; Stop 08/21/16 at 10:51; Status DC Active Scripts Active Reported Docusate Sodium 100 Mg Capsule 1 Cap PO PRN DAILY PRN Tylenol (Acetaminophen) 325 Mg Tablet 2 Tab PO PRN Q6HRS PRN Ranitidine Hcl 150 Mg Tablet 150 Mg PO BID Ondansetron Hcl 8 Mg Tablet 8 Mg PO BID PRN Vitamin D3 (Cholecalciferol (Vitamin D3)) 1,000 Unit Tablet 1,000 Unit PO DAILY Levothyroxine Sodium 50 Mcg Tablet 75 Mcg PO DAILY Vitals/I & O Vital Sign - Last 24 Hours 08/21/16 08/21/16 08/21/16 08/21/16 15:33 19:33 20:00 23:51 Temp 97.7 98.1 98.1 97.7 98.1 98.1 Pulse 77 87 79 Resp 19 18 18 B/P (MAP) 123/73 (90) 121/74 (90) 119/70 (86) Pulse Ox 97 93 94 O2 Delivery Nasal Cannula Nasal Cannula Nasal Cannula Nasal Cannula O2 Flow Rate 4.0 4.0 4.0 08/22/16 08/22/16 08/22/16 08/22/16 03:16 07:36 08:00 11:20 Temp 98.0 97.9 97.9 98.0 97.9 97.9 Pulse 82 77 84 Resp 18 18 18 B/P (MAP) 130/80 (97) 115/67 (83) 126/66 (86) Pulse Ox 100 95 94 O2 Delivery Nasal Cannula Nasal Cannula Nasal Cannula Nasal Cannula O2 Flow Rate 4.0 Intake and Output 08/21/16 08/21/1608/22/17 15:00 23:00 07:00 Intake Total 200 ml 1120 ml 600 ml Balance 200 ml 1120 ml 600 ml Nutrition Consultation Dietary Evaluation: Recommendations by RD: Protein supplementation Comments: Ensure tid Expected Outcomes/Goals: to meet > 75% est nutr needs Malnutrition Findings: Body Fat Depletion (Non Severe: Mod to Severe Weight Status: Appropriate Fluid Accumulation (Severe): Severe JESUS GOODSON MD Aug 22, 2016 12:55
== END 2016-08-22 12:00 | disposition hospice, home (50) | DRG 441 ==
LOC: ER 10:31 → 6 SOUTH 12:08
PROVIDERS: ADMIT Internal Medicine; ATTEND Internal Medicine
DX: K72.90 Hepatic failure, unspecified without coma (principal); J96.01 Acute respiratory failure with hypoxia; E43 Unspecified severe protein-calorie malnutrition; J90 Pleural effusion, not elsewhere classified; R18.8 Other ascites; E87.1 Hypo-osmolality and hyponatremia; C16.9 Malignant neoplasm of stomach, unspecified; C78.7 Secondary malignant neoplasm of liver and intrahepatic bile duct; C79.89 Secondary malignant neoplasm of other specified sites; K80.21 Calculus of gallbladder without cholecystitis with obstruction; R65.10 Systemic inflammatory response syndrome (SIRS) of non-infectious origin without acute organ dysfunction; D63.8 Anemia in other chronic diseases classified elsewhere; E78.5 Hyperlipidemia, unspecified; R68.81 Early satiety; L29.9 Pruritus, unspecified; Z51.5 Encounter for palliative care; Z66 Do not resuscitate; K74.60 Unspecified cirrhosis of liver; K21.9 Gastro-esophageal reflux disease without esophagitis; Z82.49 Family history of ischemic heart disease and other diseases of the circulatory system; Z79.899 Other long term (current) drug therapy; Z79.82 Long term (current) use of aspirin; Z79.1 Long term (current) use of non-steroidal anti-inflammatories (NSAID); Z85.028 Personal history of other malignant neoplasm of stomach; Z79.2 Long term (current) use of antibiotics; Z68.21 Body mass index [BMI] 21.0-21.9, adult
CPT/HCPCS: 36415; 36600; 71010; 71275; 74177; 80047; 80048; 80053; 80076; 81001; 83605; 83690; 83735; 83880; 84484; 85007; 85027; 85610; 87040; 93005; 93970; 96374; A6539; C1887; J1650; J1940; J2543; J3370; J3430; J7030; J7040; J7050; Q9967; 97116; 97535; 99291-25